=== PATIENT | male | born 1935 | race Caucasian/White ===

== ENCOUNTER 2023-02-06 18:24 | Emergency (ER) | payer OTHER ==
[2023-02-06 18:32] VITALS: TEMP 98.2
--- NOTE | 2023-02-06 18:49 | ED ---
General Adult HPI - General Chief complaint: Neuro Symptoms/Deficit Stated complaint: poss stroke Time Seen by Provider: 02/06/23 18:40 Source: patient, family (Family also state speech is normal.), RN notes reviewed (Patient denies speech problems) Mode of arrival: wheelchair Limitations: no limitations - History of Present Illness Initial comments: Patient is a pleasant 87-year-old male presenting to the emergency department with concern for left-sided facial weakness. Patient noticed symptoms when he woke yesterday morning. Symptoms have slowly progressed since that time. Patient has had some drooling out of the left side and difficulty closing his left eye. No history of similar symptoms previously. No confusion or speech problems. No visual problems. No extremity weakness. No difficulty with ambulation. No headache. - Related Data Previous Rx's Medication Instructions Recorded predniSONE [Deltasone] 3 tab PO DAILY #18 tab 02/06/23 valACYclovir HCL [Valtrex] 1 tab PO TID #20 tablet 02/06/23 Allergies Allergy/AdvReac Type Severity Reaction Status Date / Time diazepam [From Valium] Allergy Anaphylaxis Verified 02/06/23 18:32 Review of Systems ROS Statement: Those systems with pertinent positive or pertinent negative responses have been documented in the HPI. ROS Other: All systems not noted in ROS Statement are negative. Constitutional: Denies: fever Eyes: Denies: eye pain ENT: Denies: ear pain Respiratory: Denies: cough Cardiovascular: Denies: chest pain Endocrine: Denies: fatigue Gastrointestinal: Denies: abdominal pain Genitourinary: Denies: urgency Musculoskeletal: Denies: back pain Skin: Denies: rash Neurological: Reports: as per HPI. Denies: headache Past Medical History Past Medical History: COPD, Dementia, Hyperlipidemia, Hypertension Additional Past Medical History / Comment(s): hiatal hernia History of Any Multi-Drug Resistant Organisms: None Reported Past Surgical History: Joint Replacement Additional Past Surgical History / Comment(s): nic knees, Past Psychological History: No Psychological Hx Reported Smoking Status: Former smoker Past Alcohol Use History: None Reported Past Drug Use History: None Reported General Exam Limitations: no limitations General appearance: alert, in no apparent distress Head exam: Present: atraumatic Eye exam: Present: PERRL, EOMI ENT exam: Present: normal oropharynx Neck exam: Present: normal inspection Respiratory exam: Present: normal lung sounds bilaterally Cardiovascular Exam: Present: regular rate, normal rhythm GI/Abdominal exam: Present: soft. Absent: tenderness Extremities exam: Present: normal inspection Neurological exam: Present: alert, oriented X3, CN II-XII intact (Except for left facial droop and forehead weakness) Expanded Neurological exam: Present: protecting the airway Speech: Present: fluid speech Cranial nerves: EOM's Intact: Normal, Facial Palsy without Forehead Movement: Abnormal Left ( L Facial and forehead weakness) Motor strength exam: RUE: 5, LUE: 5, RLE: 5, LLE: 5 Eye Response: (4) open spontaneously Motor Response: (6) obeys commands Verbal Response: (5) oriented Psychiatric exam: Present: normal affect, normal mood Skin exam: Present: normal color Course Vital Signs 02/06/23 18:27 Temperature 98.2 F Pulse Rate 72 Respiratory 20 Rate Blood Pressure 175/95 O2 Sat by Pulse 89 L Oximetry EKG Findings - EKG Results: EKG: interpreted by DIAMOND (Septal Q waves), sinus rhythm, normal axis, normal ST /T Medical Decision Making - Medical Decision Making Was pt. sent in by a medical professional or institution (ASHLEY Vieyra, PREVENTATIVE MAINTENANCE TECHNICIAN, urgent care, hospital, or alf...) When possible be specific @ -No Did you speak to anyone other than the patient for history (EMS, parent, family, police, friend...)? What history was obtained from this source @ - is present and helps provide history including onset and confirms no speech problems Did you review nursing and triage notes (agree or disagree)? Why? @ -I reviewed nursing and triage notes, patient and family both deny speech problems Were old charts reviewed (outside hosp., previous admission, EMS record, old EKG, old radiological studies, urgent care reports/EKG's, alf records)? Report findings @ -No old charts were reviewed Differential Diagnosis (chest pain, altered mental status, abdominal pain women, abdominal pain men, vaginal bleeding, weakness, fever, dyspnea, syncope, headache, dizziness, GI bleed, back pain, seizure, CVA, palpatations, mental health)? @ -Differential Weakness: Hypoglycemia, shock, sepsis, hyponatremia, anemia, infection, IL, ETOH, adverse medicine reaction, overdose, stroke, this is not meant to be an all-inclusive list. EKG interpreted by (3pts min.). @ -As above X-rays interpreted by me (1pt min.). @ -None done CT interpreted by me (1pt min.). @ -Report reviewed U/S interpreted by me (1pt. min.). @ -None done What testing was considered but not performed or refused? (CT, X-rays, U/S, labs)? Why? @ -None What meds were considered but not given or refused? Why? @ -None Did you discuss the management of the patient with other professionals (professionals i.e. DrWilla, PA, PREVENTATIVE MAINTENANCE TECHNICIAN, lab, RT, psych nurse, social insurance adviser, export freight clerk, teacher, air crew officer, manager of case)? Give summary @ -No Was smoking cessation discussed for >3mins.? @ -No Was critical care preformed (if so, how long)? @ -No Were there social determinants of health that impacted care today? How? (Homelessness, low income, unemployed, alcoholism, drug addiction, transportation, low edu. Level, literacy, decrease access to med. care, [facility]ci, rehab)? @ -No Was there de-escalation of care discussed even if they declined (Discuss DNR or withdrawal of care, Hospice)? DNR status @ -No What co-morbidities impacted this encounter? (DM, HTN, Smoking, COPD, CAD, Cancer, CVA, ARF, Chemo, Hep., AIDS, mental health diagnosis, sleep apnea, morbid obesity)? @ -None Was patient admitted / discharged? Hospital course, mention meds given and route, prescriptions, significant lab abnormalities, going to OR and other pertinent info. @ -Patient reevaluated. Patient family updated on results and plan as well as treatment Undiagnosed new problem with uncertain prognosis? @ -No Drug Therapy requiring intensive monitoring for toxicity (Heparin, Nitro, Insulin, Cardizem)? @ -No Were any procedures done? @ -No Diagnosis/symptom? @ -Juarez's palsy Acute, or Chronic, or Acute on Chronic? @ -Acute Uncomplicated (without systemic symptoms) or Complicated (systemic symptoms)? @ -default Side effects of treatment? @ -No Exacerbation, Progression, or Severe Exacerbation? @ -No Poses a threat to life or bodily function? How? (Chest pain, USA, IL, pneumonia, PE, COPD, DKA, ARF, appy, cholecystitis, CVA, Diverticulitis, Homicidal, Suicidal, threat to staff... and all critical care pts) @ -No Disposition Clinical Impression: Juarez's palsy Disposition: HOME SELF-CARE Condition: Stable Instructions (If sedation given, give patient instructions): Juarez Palsy (ED) Additional Instructions: Start Prescriptions tomorrow. Please do follow-up with primary care physician beginning of the week. Return for other areas of weakness, confusion, worsening or change in symptoms or other concerns. 4 times daily and before bed use Lacri-Lube to left eye. Tape the left eye shut prior to going to sleep. Prescriptions: predniSONE [Deltasone] 3 tab PO DAILY #18 tab valACYclovir HCL [Valtrex] 1 tab PO TID #20 tablet Is patient prescribed a controlled substance at d/c from ED?: No Referrals: [facility],Clinic [Primary Care Provider] - 1-2 days Time of Disposition: 19:25
--- NOTE | 2023-02-06 19:13 | CT ---
EXAMINATION TYPE: CT brain wo con CT DLP: 1102.4 mGycm, Automated exposure control for dose reduction was used. DATE OF EXAM: 02/06/2023 7:06 PM COMPARISON: None. CLINICAL INDICATION:Male, 87 years old with history of facial weakness L, left side facial weakness, droop TECHNIQUE: Brain: Axial CT images of the brain were obtained with coronal and sagittal reformats created and rev iewed. Contrast used: None. Oral contrast used: None. FINDINGS: Brain: Extra-axial spaces: No abnormal extra-axial fluid collections. Ventricular system: Dilatation in proportion to cerebral atrophy. Cerebral parenchyma: Cerebral atrophy. No acute intraparenchymal hemorrhage or mass effect. The horne -white junction is well differentiated. Cerebellum: Unremarkable. Mass effect: No evidence of midline shift. Intracranial vasculature: Atherosclerotic calcifications of the intracranial vessels. Soft tissues: Normal. Calvarium/osseous structures: No depressed skull fracture. Paranasal sinuses and mastoid air cells: Mild scattered paranasal sinus disease. Visualized orbits: Orbital contents are intact. IMPRESSION: 1. No acute intracranial process. 2. Nonspecific white matter changes, likely secondary to chronic small vessel ischemic disease.
[2023-02-06] MEDS ORDERED: valACYclovir HCL 1,000 MG TABLET PO STA (19:20)
[2023-02-06] MEDS ORDERED: predniSONE 20 MG TAB PO STA (19:21)
[2023-02-06 19:40] VITALS: BP 162/95; PULSE 71; RESP 18
== END 2023-02-06 20:04 | disposition home or self-care (01) ==
LOC: EC 18:24
DX: G51.0 Bell's palsy (principal); J44.9 Chronic obstructive pulmonary disease, unspecified; I10 Essential (primary) hypertension; Z87.891 Personal history of nicotine dependence; Z88.8 Allergy status to other drugs, medicaments and biological substances
CPT/HCPCS: 70450; 99284; J7512

== ENCOUNTER 2023-12-30 12:07 | Inpatient (IN) | payer OTHER, MEDICARE ==
--- NOTE | 2023-12-30 12:46 | ED ---
Nausea/Vomiting/Diarrhea HPI - General Chief complaint: Nausea/Vomiting/Diarrhea Stated complaint: Vomiting Time Seen by Provider: 12/30/23 12:19 Source: patient, RN notes reviewed Mode of arrival: wheelchair Limitations: no limitations - History of Present Illness Initial comments: 88-year-old male presents emergency department chief complaint of nausea vomiting patient states he has had symptoms over the last 3 days that are intermittent but increasing in intensity states he has emesis that is pretty much bile at this time he states he is having increased abdominal pain he did have some chest discomfort and increasing shortness of breath from his baseline he is oxygen dependent COPD. Patient denies any fevers or chills no sick contacts denies any back pain no flank pain on the usual. - Related Data Home Medications Medication Instructions Recorded Confirmed Albuterol Sulfate [Albuterol 1 puff INHALATION RT-QID PRN 12/30/23 12/30/23 Sulfate Hfa] Aspirin EC [Ecotrin Low Dose] 81 mg PO HS 12/30/23 12/30/23 Fluticasone Propion/Salmeterol 1 puff INHALATION RT-BID 12/30/23 12/30/23 [Fluticasone-Salmeterol 250-50] Levothyroxine Sodium [Synthroid] 25 mcg PO DAILY 12/30/23 12/30/23 Meloxicam [Mobic] 15 mg PO DAILY 12/30/23 12/30/23 Niacin [Slo-Niacin] 500 mg PO BID 12/30/23 12/30/23 Simvastatin [Zocor] 40 mg PO HS 12/30/23 12/30/23 Tiotropium 2.5 Mcg/Puff [Spiriva 2 puff INHALATION RT-DAILY 12/30/23 12/30/23 Respimat 2.5 Mcg] atenoloL [Tenormin] 25 mg PO BID 12/30/23 12/30/23 Allergies Allergy/AdvReac Type Severity Reaction Status Date / Time diazepam [From Valium] Allergy Anaphylaxis Verified 12/30/23 13:24 Review of Systems ROS Statement: Those systems with pertinent positive or pertinent negative responses have been documented in the HPI. ROS Other: All systems not noted in ROS Statement are negative. Past Medical History Past Medical History: COPD, Dementia, Hyperlipidemia, Hypertension Additional Past Medical History / Comment(s): hiatal hernia History of Any Multi-Drug Resistant Organisms: None Reported Past Surgical History: Joint Replacement Additional Past Surgical History / Comment(s): nic knees, Past Psychological History: No Psychological Hx Reported Smoking Status: Former smoker Past Alcohol Use History: None Reported Past Drug Use History: None Reported General Exam Limitations: no limitations General appearance: alert, in no apparent distress Head exam: Present: atraumatic, normocephalic, normal inspection Eye exam: Present: normal appearance, PERRL, EOMI. Absent: scleral icterus, conjunctival injection, periorbital swelling ENT exam: Present: normal exam, normal oropharynx, mucous membranes moist Neck exam: Present: normal inspection, full ROM. Absent: tenderness, meningismus, lymphadenopathy Respiratory exam: Present: normal lung sounds bilaterally. Absent: respiratory distress, wheezes, rales, rhonchi, stridor Cardiovascular Exam: Present: regular rate, normal rhythm, normal heart sounds. Absent: systolic murmur, diastolic murmur, rubs, gallop, clicks GI/Abdominal exam: Present: soft, tenderness, normal bowel sounds. Absent: distended, guarding, rebound, rigid Back exam: Absent: CVA tenderness (R), CVA tenderness (L) Neurological exam: Present: alert, oriented X3, CN II-XII intact Skin exam: Present: warm, dry, intact, normal color. Absent: rash Course Vital Signs 12/30/23 12:09 Temperature 97.8 F Pulse Rate 89 Respiratory 16 Rate Blood Pressure 147/92 O2 Sat by Pulse 92 L Oximetry Medical Decision Making - Medical Decision Making Was pt. sent in by a medical professional or institution (, PA, PRECISION MACHINE OPERATOR, urgent care, hospital, or [facility]...) When possible be specific @ -[No] Did you speak to anyone other than the patient for history (EMS, parent, family, police, friend...)? What history was obtained from this source @ -[No] Did you review nursing and triage notes (agree or disagree)? Why? @ -[I reviewed and agree with nursing and triage notes] Were old charts reviewed (outside hosp., previous admission, EMS record, old EKG, old radiological studies, urgent care reports/EKG's, [facility] records)? Report findings @ -[No old charts were reviewed] Differential Diagnosis (chest pain, altered mental status, abdominal pain women, abdominal pain men, vaginal bleeding, weakness, fever, dyspnea, syncope, headache, dizziness, GI bleed, back pain, seizure, CVA, palpatations, mental health, musculoskeletal)? @ -Differential Abdominal Pain Men: Appendicitis, cholecystitis, diverticulosis, ischemic bowel, pancreatitis, hepatitis, UTI, gastroenteritis, AAA, incarcerated hernia, bowel obstruction, constipation, inflammatory bowel, hepatitis, peptic ulcer disease, splenic infarction, perforated viscus, testicular torsion, this is not meant to be an all-inclusive list EKG interpreted by me (3pts min.). @ -[As above] X-rays interpreted by me (1pt min.). @ -[None done] CT interpreted by me (1pt min.). @ -CT abdomen pelvis showing severely distended stomach, gastric outlet obstruction U/S interpreted by me (1pt. min.). @ -[None done] What testing was considered but not performed or refused? (CT, X-rays, U/S, lab s)? Why? @ -[None] What meds were considered but not given or refused? Why? @ -[None] Did you discuss the management of the patient with other professionals (professionals i.e. , PA, PRECISION MACHINE OPERATOR, lab, RT, psych nurse, high school social science teacher, acid tester, teacher, security officer, pillowcase folder)? Give summary @ -Discussed the case with Dr. Coulter, Dr. Salinas for admission Was smoking cessation discussed for >3mins.? @ -[No] Was critical care preformed (if so, how long)? @ -35 Were there social determinants of health that impacted care today? How? (Homelessness, low income, unemployed, alcoholism, drug addiction, transportation, low edu. Level, literacy, decrease access to med. care, prison, rehab)? @ -[No] Was there de-escalation of care discussed even if they declined (Discuss DNR or withdrawal of care, Hospice)? DNR status @ -[No] What co-morbidities impacted this encounter? (DM, HTN, Smoking, COPD, CAD, Ca ncer, CVA, ARF, Chemo, Hep., AIDS, mental health diagnosis, sleep apnea, morbid obesity)? @ -[None] Was patient admitted / discharged? Hospital course, mention meds given and route, prescriptions, significant lab abnormalities, going to OR and other pertinent info. @ -Admitted patient found to have gastric outlet obstruction patient had vomiting for last few days. He is having increasing abdominal pain distention. Patient will have NG tube placed case discussed with on-call surgeon, medicine patient does have elevated troponin without significant EKG changes patient will have repeat troponin, cardiology evaluation will be placed IV fluids, antiemetics, antibiotics. Patient lab be placed on heparin due to possible pending surgery patient will have repeat troponin Undiagnosed new problem with uncertain prognosis? @ -[No] Drug Therapy requiring intensive monitoring for toxicity (Heparin, Nitro, Insulin, Cardizem)? @ -[No] Were any procedures done? @ -[No] Diagnosis/symptom? @ -Gastric outlet obstruction, NSTEMI Acute, or Chronic, or Acute on Chronic? @ -Acute Uncomplicated (without systemic symptoms) or Complicated (systemic symptoms)? @ -complicated Side effects of treatment? @ -[No] Exacerbation, Progression, or Severe Exacerbation? @ -[No] Poses a threat to life or bodily function? How? (Chest pain, USA, OR, pneumonia, PE, COPD, DKA, ARF, appy, cholecystitis, CVA, Diverticulitis, Homicidal, Suicidal, threat to staff... and all critical care pts) @ -Yes surgical risk, ACS - Lab Data Result diagrams: 12/30/23 12:58 12/30/23 12:58 Lab Results 12/30/23 12/30/23 12/30/23 Range/Units 12:58 12:58 12:58 WBC 13.6 H (3.8-10.6) k/uL RBC 5.74 (4.30-5.90) m/uL Hgb 16.7 (13.0-17.5) gm/dL Hct 51.7 (39.0-53.0) % MCV 90.2 (80.0-100.0) fL MCH 29.1 (25.0-35.0) pg MCHC 32.3 (31.0-37.0) g/dL RDW 14.6 (11.5-15.5) % Plt Count 215 (150-450) k/uL MPV 7.7 Neutrophils % 83 % Lymphocytes % 5 % Monocytes % 9 % Eosinophils % 1 % Basophils % 0 % Neutrophils # 11.3 H (1.3-7.7) k/uL Lymphocytes # 0.7 L (1.0-4.8) k/uL Monocytes # 1.2 H (0-1.0) k/uL Eosinophils # 0.1 (0-0.7) k/uL Basophils # 0.0 (0-0.2) k/uL Sodium 138 (137-145) mmol/L Potassium 3.9 (3.5-5.1) mmol/L Chloride 87 L (98-107) mmol/L Carbon Dioxide 40 H (22-30) mmol/L Anion Gap 11 mmol/L BUN 61 H (9-20) mg/dL Creatinine 1.27 H (0.66-1.25) mg/dL Est GFR (CKD-EPI)AfAm 58 (>60 ml/min/1.73 sqM) Est GFR (CKD-EPI)NonAf 50 (>60 ml/min/1.73 sqM) Glucose 150 H (74-99) mg/dL Calcium 9.9 (8.4-10.2) mg/dL Magnesium 2.1 (1.6-2.3) mg/dL Total Bilirubin 2.3 H (0.2-1.3) mg/dL AST 43 (17-59) U/L ALT 21 (4-49) U/L Alkaline Phosphatase 93 (38-126) U/L Troponin I 0.427 H* (0.000-0.034) ng/mL Total Protein 7.9 (6.3-8.2) g/dL Albumin 4.6 (3.5-5.0) g/dL Lipase 46 (23-300) U/L Influenza Type A (PCR) (Not Detectd) Influenza Type B (PCR) (Not Detectd) RSV (PCR) (Not Detectd) SARS-CoV-2 (PCR) (Not Detectd) 12/30/23 Range/Units 13:05 WBC (3.8-10.6) k/uL RBC (4.30-5.90) m/uL Hgb (13.0-17.5) gm/dL Hct (39.0-53.0) % MCV (80.0-100.0) fL MCH (25.0-35.0) pg MCHC (31.0-37.0) g/dL RDW (11.5-15.5) % Plt Count (150-450) k/uL MPV Neutrophils % % Lymphocytes % % Monocytes % % Eosinophils % % Basophils % % Neutrophils # (1.3-7.7) k/uL Lymphocytes # (1.0-4.8) k/uL Monocytes # (0-1.0) k/uL Eosinophils # (0-0.7) k/uL Basophils # (0-0.2) k/uL Sodium (137-145) mmol/L Potassium (3.5-5.1) mmol/L Chloride (98-107) mmol/L Carbon Dioxide (22-30) mmol/L Anion Gap mmol/L BUN (9-20) mg/dL Creatinine (0.66-1.25) mg/dL Est GFR (CKD-EPI)AfAm (>60 ml/min/1.73 sqM) Est GFR (CKD-EPI)NonAf (>60 ml/min/1.73 sqM) Glucose (74-99) mg/dL Calcium (8.4-10.2) mg/dL Magnesium (1.6-2.3) mg/dL Total Bilirubin (0.2-1.3) mg/dL AST (17-59) U/L ALT (4-49) U/L Alkaline Phosphatase (38-126) U/L Troponin I (0.000-0.034) ng/mL Total Protein (6.3-8.2) g/dL Albumin (3.5-5.0) g/dL Lipase (23-300) U/L Influenza Type A (PCR) Not Detected (Not Detectd) Influenza Type B (PCR) Not Detected (Not Detectd) RSV (PCR) Not Detected (Not Detectd) SARS-CoV-2 (PCR) Not Detected (Not Detectd) - EKG Data -: EKG Interpreted by Ma EKG Comments: EKG performed at 12: 43 sinus rhythm rate of 81 WI 167 QRS 82 QT/QTc 404/42 inverted T waves in lead II, 3 Critical Care Time Critical Care Time: Yes Total Critical Care Time: 35 Disposition Clinical Impression: Dehydration, Gastric outlet obstruction, NSTEMI (non-ST elevated myocardial infarction) Disposition: ADMITTED IP TO THIS HOSP Condition: Serious Referrals: [facility],Clinic [Primary Care Provider] - 1-2 days Time of Disposition: 14:41
[2023-12-30] MEDS: ONDANSETRON 4 MG/2 ML VIAL IVP STA (12:55)
[2023-12-30] MEDS: SODIUM CHLORIDE 0.9% 500 ML 500 ML IV STA (12:55)
[2023-12-30 13:09] LABS: Basophils % (A) 0 %; Eosinophils # (A) 0.1 k/uL (0-0.7); Eosinophils % (A) 1 %; HCT 51.7 % (39.0-53.0); HGB 16.7 gm/dL (13.0-17.5); Lymphocytes # (A) 0.7 k/uL (1.0-4.8); Lymphocytes % (A) 5 %; MCH 29.1 pg (25.0-35.0); MCHC 32.3 g/dL (31.0-37.0); MCV 90.2 fL (80.0-100.0); Mean Platelet Volume 7.7; Monocytes # (A) 1.2 k/uL (0-1.0); Monocytes % (A) 9 %; Neutrophils # (A) 11.3 k/uL (1.3-7.7); Neutrophils % (A) 83 %; Platelet Count 215 k/uL (150-450); RBC 5.74 m/uL (4.30-5.90); RDW 14.6 % (11.5-15.5); WBC 13.6 k/uL (3.8-10.6)
[2023-12-30 13:20] LABS: ALT 21 U/L (4-49); AST 43 U/L (17-59); African American GFR (CKD) 58 (>60 ml/min/1.73 sqM); Albumin 4.6 g/dL (3.5-5.0); Alkaline Phosphatase 93 U/L (38-126); Anion Gap 11 mmol/L; Blood Urea Nitrogen 61 mg/dL (9-20); Calcium 9.9 mg/dL (8.4-10.2); Chloride 87 mmol/L (98-107); Glucose 150 mg/dL (74-99); Lipase 46 U/L (23-300); Magnesium 2.1 mg/dL (1.6-2.3); Non-African American GFR(CKD) 50 (>60 ml/min/1.73 sqM); Potassium 3.9 mmol/L (3.5-5.1); Sodium 138 mmol/L (137-145); Total Bilirubin 2.3 mg/dL (0.2-1.3); Total Protein 7.9 g/dL (6.3-8.2)
[2023-12-30 13:31] LABS: Carbon Dioxide 40 mmol/L (22-30)
--- NOTE | 2023-12-30 14:07 | CT ---
EXAMINATION TYPE: CT abdomen pelvis wo con CT DLP: 479.2 mGycm, Automated exposure control for dose reduction was used. DATE OF EXAM: 12/30/2023 1:42 PM COMPARISON: None CLINICAL INDICATION:Male, 88 years old with history of pain; Abdominal pain with vomiting TECHNIQUE: Axial CT abdomen pelvis wo con;Sagittal and coronal reformats were created on a separate workstation. Contrast used: mL of , (none if empty) Oral contrast used: without Oral Contrast (none if empty) FINDINGS: LOWER CHEST: Unremarkable ABDOMEN LIVER: Unremarkable GALLBLADDER AND BILE DUCTS: Unremarkable. PANCREAS: Unremarkable. SPLEEN: Unremarkable. ADRENAL GLANDS: Unremarkable. KIDNEYS AND URETERS: No evidence of hydronephrosis or renal calculus. The ureters are unremarkable. PELVIS BLADDER: Unremarkable REPRODUCTIVE: Unremarkable. ABDOMEN & PELVIS STOMACH AND BOWEL: Large hiatal hernia with distention of the gastric lumen with the antrum and the p ylorus near the neck of the hernia with gastric outlet obstruction best appreciated on series 202 pa[address] 50. Scattered colonic diverticula are present. Moderate stool burden throughout the colon. PERITONEUM/RETROPERITONEUM: No evidence of pneumoperitoneum or free fluid. VASCULATURE: No evidence of aortic aneurysm. MUSCULOSKELETAL: No acute osseous abnormalities severe degeneration changes of the hips with end-stag e on the left and severe on the right joint space narrowing and osteophyte formation. Subchondral scl erosis and subchondral cystic change in the left. Moderate to severe multilevel degeneration changes throughout the spine. LYMPH NODES: No gross evidence for lymphadenopathy. SOFT TISSUE/ABDOMINAL WALL: Unremarkable IMPRESSION: 1. Markedly distended gastric lumen with herniation through the hiatus into the thorax with the preston tahir antrum and pylorus situated near the neck with gastric outlet obstruction. Nasogastric tube recom mended. Surgical consultation recommended 2. Gastroesophageal reflux within the esophagus likely secondary to #1. 3. Colonic diverticulosis. 4. 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 5. Severe degeneration changes throughout the spine.
[2023-12-30] MEDS ORDERED: ONDANSETRON 4 MG/2 ML VIAL IVP PRN (14:41)
[2023-12-30] MEDS ORDERED: NALOXONE 0.4 MG/ML 1 ML VIAL IV PRN (14:41)
[2023-12-30 14:43] LABS: Appearance,Urine Clear (Clear); Bilirubin,Urine 1+ (Negative); Blood,Urine Negative (Negative); Color,Urine Yellow; Glucose,Urine (UA) Negative (Negative); Hyaline Casts,Urine 8 /lpf (0-2); Ketones,Urine 1+ (Negative); Leukocyte Esterase,Urine Negative (Negative); Mucus,Urine Rare /hpf; Nitrite,Urine Negative (Negative); PH, Urine 5.5 (5.0-8.0); Protein,Urine 1+ (Negative); RBC,Urine 1 /hpf (0-5); Specific Gravity,Urine 1.025 (1.001-1.035); WBC,Urine <1 /hpf (0-5)
[2023-12-30] MEDS: SODIUM CHLORIDE 0.9% 1,000 ML IV ONE (14:45)
[2023-12-30] MEDS ORDERED: ASPIRIN 300 MG SUPP RECTAL PRN (15:22)
--- NOTE | 2023-12-30 15:37 | P.GSCN ---
History of Present Illness Consult date: 12/30/23 History of present illness: CHIEF COMPLAINT: Nausea and vomiting HISTORY OF PRESENT ILLNESS: This is a 88-year-old male who presented to the hospital with complaints of epigastric pain with nausea and vomiting x 3 days. Emesis had been bilious in color. Denies any hematemesis. Patient has reported increase in shortness of breath requiring to increase his home O2. Patient denies any chest pain. Patient had a CT scan abdomen and pelvis that had reported concerns for gastric outlet obstruction. Patient has NG tube placed. Awaiting x-ray to confirm placement. Patient does have past surgical history bowel obstruction with possible lysis of adhesions years ago as well as an appendectomy as a child. Patient reports having a history of a hiatal hernia that was diagnosed about 5 to 10 years ago. Patient was told at that time he was high risk for surgery. Patient denies any prior myocardial infarction's or cardiac history. He does report prior history of smoking. 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 PAST MEDICAL HISTORY: COPD, Dementia, Hyperlipidemia, Hypertension, hiatal hernia PAST SURGICAL HISTORY: Appendectomy, bowel obstruction with lysis of adhesions MEDICATIONS: See below ALLERGIES: See below SOCIAL HISTORY: No illicit drug use. REVIEW OF SYSTEMS: CONSTITUTIONAL: Denies fever or chills. HEENT: Denies blurred vision, vision changes, or eye pain. Denies hemoptysis CARDIOVASCULAR: Denies chest pain or pressure. RESPIRATORY: No shortness of breath. GASTROINTESTINAL: See HPI for pertinent findings HEMATOLOGIC: Denies bleeding disorders. GENITOURINARY: Denies any blood in urine or increased urinary frequency. SKIN: Denies pruitis. Denies rash. PHYSICAL EXAM: VITAL SIGNS: Reviewed GENERAL: Well-developed in no acute distress. HEENT: No sclera icterus. Extraocular movements grossly intact. Moist buccal mucosa. Head is atraumatic, normocephalic. No nasal drainage. ABDOMEN: Soft. Mildly distended. Tenderness with palpation epigastric area NEUROLOGIC: Alert and oriented. Cranial nerves II through XII grossly intact. LABORATORY DATA: WBC 13.6 Hgb 16.7 platelets 215 Sodium 138 potassium 3.9 creatinine 1.27 Total bili 2.3 AST 43 ALT 21 alk phos 93 Troponin elevated Lipase 46 Influenza, RSV COVID-19 not detected IMAGING: CT scan abdomen pelvis reported markedly distended gastric lumen with herniation through the hiatus into the thorax with the gastric antrum and pylorus situated near the neck with gastric outlet obstruction. GERD within the esophagus. Colonic diverticulosis. ASSESSMENT: 1. Gastric outlet obstruction 2. Abdominal pain with nausea and vomiting 3. Elevated troponin PLAN: -Continue NG tube for decompression -Keep patient n.p.o. -Continue IV fluids -Continue antiemetics -Continue to monitor -Further recommendations forthcoming Physician Crop Specialist note has been reviewed by physician. Signing provider agrees with the documented findings, assessment, and plan of care. Past Medical History Past Medical History: COPD, Dementia, Hyperlipidemia, Hypertension Additional Past Medical History / Comment(s): hiatal hernia History of Any Multi-Drug Resistant Organisms: None Reported Past Surgical History: Joint Replacement Additional Past Surgical History / Comment(s): nic knees, Past Psychological History: No Psychological Hx Reported Smoking Status: Former smoker Past Alcohol Use History: None Reported Past Drug Use History: None Reported Medications and Allergies Home Medications Medication Instructions Recorded Confirmed Type Albuterol Sulfate [Albuterol 1 puff INHALATION RT-QID PRN 12/30/23 12/30/23 History Sulfate Hfa] Aspirin EC [Ecotrin Low Dose] 81 mg PO HS 12/30/23 12/30/23 History Fluticasone Propion/Salmeterol 1 puff INHALATION RT-BID 12/30/23 12/30/23 History [Fluticasone-Salmeterol 250-50] Levothyroxine Sodium [Synthroid] 25 mcg PO DAILY 12/30/23 12/30/23 History Meloxicam [Mobic] 15 mg PO DAILY 12/30/23 12/30/23 History Niacin [Slo-Niacin] 500 mg PO BID 12/30/23 12/30/23 History Simvastatin [Zocor] 40 mg PO HS 12/30/23 12/30/23 History Tiotropium 2.5 Mcg/Puff [Spiriva 2 puff INHALATION RT-DAILY 12/30/23 12/30/23 History Respimat 2.5 Mcg] atenoloL [Tenormin] 25 mg PO BID 12/30/23 12/30/23 History Allergies Allergy/AdvReac Type Severity Reaction Status Date / Time diazepam [From Valium] Allergy Anaphylaxis Verified 12/30/23 13:24 Surgical - Exam Vital Signs Temp Pulse Resp BP Pulse Ox 97.8 F 89 16 147/92 92 L 12/30/23 12:09 12/30/23 12:09 12/30/23 12:09 12/30/23 12:09 12/30/23 12:09 Results - Labs 12/30/23 12:58 12/30/23 12:58 Abnormal Lab Results - Last 24 Hours (Table) 12/30/23 12/30/23 12/30/23 Range/Units 12:58 12:58 12:58 WBC 13.6 H (3.8-10.6) k/uL Neutrophils # 11.3 H (1.3-7.7) k/uL Lymphocytes # 0.7 L (1.0-4.8) k/uL Monocytes # 1.2 H (0-1.0) k/uL Chloride 87 L (98-107) mmol/L Carbon Dioxide 40 H (22-30) mmol/L BUN 61 H (9-20) mg/dL Creatinine 1.27 H (0.66-1.25) mg/dL Glucose 150 H (74-99) mg/dL Total Bilirubin 2.3 H (0.2-1.3) mg/dL Troponin I 0.427 H* (0.000-0.034) ng/mL Urine Protein (Negative) Urine Ketones (Negative) Urine Bilirubin (Negative) Hyaline Casts (0-2) /lpf Urine Mucus (None) /hpf 12/30/23 Range/Units 14:25 WBC (3.8-10.6) k/uL Neutrophils # (1.3-7.7) k/uL Lymphocytes # (1.0-4.8) k/uL Monocytes # (0-1.0) k/uL Chloride (98-107) mmol/L Carbon Dioxide (22-30) mmol/L BUN (9-20) mg/dL Creatinine (0.66-1.25) mg/dL Glucose (74-99) mg/dL Total Bilirubin (0.2-1.3) mg/dL Troponin I (0.000-0.034) ng/mL Urine Protein 1+ H (Negative) Urine Ketones 1+ H (Negative) Urine Bilirubin 1+ H (Negative) Hyaline Casts 8 H (0-2) /lpf Urine Mucus Rare H (None) /hpf Diabetes panel 12/30/23 Range/Units 12:58 Sodium 138 (137-145) mmol/L Potassium 3.9 (3.5-5.1) mmol/L Chloride 87 L (98-107) mmol/L Carbon Dioxide 40 H (22-30) mmol/L BUN 61 H (9-20) mg/dL Creatinine 1.27 H (0.66-1.25) mg/dL Glucose 150 H (74-99) mg/dL Calcium 9.9 (8.4-10.2) mg/dL AST 43 (17-59) U/L ALT 21 (4-49) U/L Alkaline Phosphatase 93 (38-126) U/L Total Protein 7.9 (6.3-8.2) g/dL Albumin 4.6 (3.5-5.0) g/dL Calcium panel 12/30/23 Range/Units 12:58 Calcium 9.9 (8.4-10.2) mg/dL Albumin 4.6 (3.5-5.0) g/dL Pituitary panel 12/30/23 Range/Units 12:58 Sodium 138 (137-145) mmol/L Potassium 3.9 (3.5-5.1) mmol/L Chloride 87 L (98-107) mmol/L Carbon Dioxide 40 H (22-30) mmol/L BUN 61 H (9-20) mg/dL Creatinine 1.27 H (0.66-1.25) mg/dL Glucose 150 H (74-99) mg/dL Calcium 9.9 (8.4-10.2) mg/dL Adrenal panel 12/30/23 Range/Units 12:58 Sodium 138 (137-145) mmol/L Potassium 3.9 (3.5-5.1) mmol/L Chloride 87 L (98-107) mmol/L Carbon Dioxide 40 H (22-30) mmol/L BUN 61 H (9-20) mg/dL Creatinine 1.27 H (0.66-1.25) mg/dL Glucose 150 H (74-99) mg/dL Calcium 9.9 (8.4-10.2) mg/dL Total Bilirubin 2.3 H (0.2-1.3) mg/dL AST 43 (17-59) U/L ALT 21 (4-49) U/L Alkaline Phosphatase 93 (38-126) U/L Total Protein 7.9 (6.3-8.2) g/dL Albumin 4.6 (3.5-5.0) g/dL
[2023-12-30] MEDS: SODIUM CHLORIDE 0.9% 1,000 ML IV SCH (15:42)
[2023-12-30] MEDS: HYDROmorphone 0.5 MG/0.5 ML SYRINGE IVP PRN (15:45)
--- NOTE | 2023-12-30 15:51 | XR ---
EXAMINATION TYPE: XR KUB portable DATE OF EXAM: 12/30/2023 3:36 PM CLINICAL INDICATION:Male, 88 years old with history of NG tube placement; [facility] COMPARISON: Same day CT. TECHNIQUE: One radiographic view of the abdomen was obtained. FINDINGS/IMPRESSION: 1. Nasogastric tube needs to be advanced at least 14 cm for optimal placement the distal tip and brady e-port project over the esophagus. 2. Persistent dilation of the gastric lumen similar to same day CT
--- NOTE | 2023-12-30 16:51 | P.HPIM ---
History of Present Illness H&P Date: 12/30/23 Chief Complaint: n/v 88-year-old man with a medical history of hypertension, hyperlipidemia, COPD, hypothyroidism presented for evaluation of nausea, vomiting. Patient says that 3 days ago he started to experience nausea, vomiting as well as burning chest pain/epigastric pain. He was unable to tolerate p.o. over the last few days because he has had large amounts of bilious emesis. He denies seeing any hematemesis. Patient has associated shakes, but denies fevers, chills, abdominal pain, diarrhea. Patient denies chest pain, diaphoresis, palpitations. Patient had been feeling presyncopal. Based on the symptoms, presented to the hospital for further evaluation. In the emergency room, patient was afebrile, 147/92, heart rate 89, 92% on 4 L of nasal cannula. CBC demonstrates leukocytosis to 13.6, otherwise unremarkable. Basic metabolic panel shows chloride of 87, CO2 of 40, BUN of 61, creatinine of 1.27. Liver function test demonstrate elevated bilirubin to 2.3, otherwise unremarkable. Troponins 0.427 then trended to 0.39. UA showed 1+ protein, 1+ ketones, 1+ bilirubin, 8 hyaline cast. Influenza A, B, RSV, COVID were negative. Abdomen/pelvis CT demonstrated findings of a markedly distended gastric lumen with herniation through the hiatus into the thorax as well as a gastric outlet obstruction. Initial EKG demonstrated normal sinus rhythm with evidence of fusion beats. Repeat EKGs confirm this finding. Patient underwent nasogastric tube insertion with postprocedure KUB demonstrating good placement. Patient was admitted to medicine with surgical consultation. All Systems reviewed and pertinent positives and negatives noted in HPI, all other symptoms are negative Gen: in no apparent distress, resting comfortably in bed Eyes: PERRL, no scleral injection or icterus HENT: normocephalic, atraumatic, good hearing acuity, moist mucous membranes Neck: no tracheal deviation, full range of motion Resp: good air exchange, breathing comfortably with no accessory muscle use, no tactile fremitus, clear to auscultation bilaterally CVS: good distal perfusion x 4, no pitting edema, regular rate and rhythm without murmurs GI: soft, tender to palpation in the epigastrium and right upper quadrant with mild distention : no suprapubic tenderness, no CVAT, hernandez catheter not present MSK: no clubbing, no cyanosis, no noted contractures of extremities Skin: no noted rashes, petechiae; temperature of skin is appropriate Neuro: moving all extremities without signs of weakness, CN II-XII intact Psych: cooperative, euthymic mood, insight and judgment intact Labs and imaging as above Assessment/plan: Gastric Outlet Obstruction Nausea and Vomiting -Patient was admitted as an inpatient with telemetry to cardiac selective -General surgery was consulted, case discussed with them, will manage conservatively initially with NG tube and n.p.o. status -Zofran as needed for nausea, use sparingly considering ventricular ectopy as below -Morphine as needed for pain control -IV fluids: NS 75cc/hr -Zosyn Elevated Troponin Ventricular Ectopy -Trend troponins -Monitor on telemetry -Cardiology was consulted -Echocardiogram ordered COPD with chronic respiratory failure, not in exacerbation Hypothyroidism HTN HLD -Home medications reviewed and reconciled Pt is Full Code Past Medical History Past Medical History: COPD, Dementia, Hyperlipidemia, Hypertension Additional Past Medical History / Comment(s): hiatal hernia History of Any Multi-Drug Resistant Organisms: None Reported Past Surgical History: Joint Replacement Additional Past Surgical History / Comment(s): nic knees, Past Psychological History: No Psychological Hx Reported Smoking Status: Former smoker Past Alcohol Use History: None Reported Past Drug Use History: None Reported Medications and Allergies Home Medications Medication Instructions Recorded Confirmed Type Albuterol Sulfate [Albuterol 1 puff INHALATION RT-QID PRN 12/30/23 12/30/23 History Sulfate Hfa] Aspirin EC [Ecotrin Low Dose] 81 mg PO HS 12/30/23 12/30/23 History Fluticasone Propion/Salmeterol 1 puff INHALATION RT-BID 12/30/23 12/30/23 History [Fluticasone-Salmeterol 250-50] Levothyroxine Sodium [Synthroid] 25 mcg PO DAILY 12/30/23 12/30/23 History Meloxicam [Mobic] 15 mg PO DAILY 12/30/23 12/30/23 History Niacin [Slo-Niacin] 500 mg PO BID 12/30/23 12/30/23 History Simvastatin [Zocor] 40 mg PO HS 12/30/23 12/30/23 History Tiotropium 2.5 Mcg/Puff [Spiriva 2 puff INHALATION RT-DAILY 12/30/23 12/30/23 History Respimat 2.5 Mcg] atenoloL [Tenormin] 25 mg PO BID 12/30/23 12/30/23 History Allergies Allergy/AdvReac Type Severity Reaction Status Date / Time diazepam [From Valium] Allergy Anaphylaxis Verified 12/30/23 13:24 Physical Exam Osteopathic Statement: *. No significant issues noted on an osteopathic structural exam other than those noted in the History and Physical/Consult. Vitals: Vital Signs Temp Pulse Resp BP Pulse Ox 12/30/23 15:21 76 16 152/93 99 12/30/23 12:09 97.8 F 89 16 147/92 92 L Intake and Output 12/30/23 12/30/23 12/30/23 06:59 14:59 22:59 Other: Weight 77.111 kg Results CBC & Chem 7: 12/30/23 12:58 12/30/23 12:58 Labs: Abnormal Lab Results - Last 24 Hours (Table) 12/30/23 12/30/23 12/30/23 Range/Units 12:58 12:58 12:58 WBC 13.6 H (3.8-10.6) k/uL Neutrophils # 11.3 H (1.3-7.7) k/uL Lymphocytes # 0.7 L (1.0-4.8) k/uL Monocytes # 1.2 H (0-1.0) k/uL Chloride 87 L (98-107) mmol/L Carbon Dioxide 40 H (22-30) mmol/L BUN 61 H (9-20) mg/dL Creatinine 1.27 H (0.66-1.25) mg/dL Glucose 150 H (74-99) mg/dL Total Bilirubin 2.3 H (0.2-1.3) mg/dL Troponin I 0.427 H* (0.000-0.034) ng/mL Urine Protein (Negative) Urine Ketones (Negative) Urine Bilirubin (Negative) Hyaline Casts (0-2) /lpf Urine Mucus (None) /hpf 12/30/23 12/30/23 Range/Units 14:25 15:40 WBC (3.8-10.6) k/uL Neutrophils # (1.3-7.7) k/uL Lymphocytes # (1.0-4.8) k/uL Monocytes # (0-1.0) k/uL Chloride (98-107) mmol/L Carbon Dioxide (22-30) mmol/L BUN (9-20) mg/dL Creatinine (0.66-1.25) mg/dL Glucose (74-99) mg/dL Total Bilirubin (0.2-1.3) mg/dL Troponin I 0.390 H* (0.000-0.034) ng/mL Urine Protein 1+ H (Negative) Urine Ketones 1+ H (Negative) Urine Bilirubin 1+ H (Negative) Hyaline Casts 8 H (0-2) /lpf Urine Mucus Rare H (None) /hpf
[2023-12-30] MEDS: PIPERACILLIN-TAZOBACTAM 3.375 GM in SODIUM CHLORIDE 0.9% 100 ML IVPB SCH (18:00)
--- NOTE | 2023-12-30 19:29 | XR ---
EXAMINATION TYPE: XR chest 1V portable DATE OF EXAM: 12/30/2023 COMPARISON: NONE HISTORY: NG tube placement TECHNIQUE: Single frontal view of the chest is obtained. FINDINGS: There is an NG tube in the stomach. There are moderate to marked emphysematous changes. There is mild elevation left hemidiaphragm. There is cardiomegaly but no overt CHF. There is no large pleural effusion or pneumothorax. IMPRESSION: 1. NG tube within the stomach. 2. Marked COPD. 3. Cardiomegaly without overt CHF
[2023-12-30 19:48] LABS: Glucose,Whole Blood 131 mg/dL (70-110)
[2023-12-30] MEDS: SYMBICORT 80-4.5 MCG INHALER INHALATION SCH (20:01)
[2023-12-30] MEDS: ASPIRIN 81 MG PO SCH (20:16)
[2023-12-30] MEDS: atenoloL 25 MG TAB PO SCH (20:16)
[2023-12-30] MEDS: ATORVASTATIN 80 MG TAB PO SCH (20:16)
[2023-12-31 05:59] LABS: Glucose,Whole Blood 95 mg/dL (70-110)
[2023-12-31 09:38] LABS: Basophils % (A) 0 %; Eosinophils # (A) 0.2 k/uL (0-0.7); Eosinophils % (A) 2 %; HCT 46.2 % (39.0-53.0); HGB 14.5 gm/dL (13.0-17.5); Hypochromasia Slight; Lymphocytes # (A) 0.7 k/uL (1.0-4.8); Lymphocytes % (A) 7 %; MCH 29.2 pg (25.0-35.0); MCHC 31.4 g/dL (31.0-37.0); Mean Platelet Volume 7.9; Monocytes # (A) 1.1 k/uL (0-1.0); Monocytes % (A) 11 %; Neutrophils # (A) 8.2 k/uL (1.3-7.7); Neutrophils % (A) 79 %; Platelet Count 184 k/uL (150-450); RBC 4.96 m/uL (4.30-5.90); RDW 14.7 % (11.5-15.5); WBC 10.4 k/uL (3.8-10.6)
[2023-12-31] MEDS: LEVOTHYROXINE 25 MCG TAB PO SCH (09:48)
[2023-12-31] MEDS: IPRATROPIUM 0.5 MG/2.5 ML NEBU INHALATION SCH (09:53)
[2023-12-31 10:07] LABS: African American GFR (CKD) 51 (>60 ml/min/1.73 sqM); Anion Gap 7 mmol/L; Blood Urea Nitrogen 50 mg/dL (9-20); Calcium 8.9 mg/dL (8.4-10.2); Carbon Dioxide 37 mmol/L (22-30); Chloride 98 mmol/L (98-107); Glucose 88 mg/dL (74-99); Magnesium 2.1 mg/dL (1.6-2.3); Non-African American GFR(CKD) 44 (>60 ml/min/1.73 sqM); Potassium 3.1 mmol/L (3.5-5.1); Sodium 142 mmol/L (137-145)
[2023-12-31 12:03] LABS: Glucose,Whole Blood 89 mg/dL (70-110)
--- NOTE | 2023-12-31 12:40 | P.CRDCN ---
History of Present Illness History of present illness: HISTORY OF PRESENT ILLNESS: This is a 88-year-old male with a past medical history significant for hypertension, hyperlipidemia, diabetes, and hypothyroidism. 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 The patient states he follows at the [facility] for his health care. We have been asked to see the patient in consultation for elevated troponins. Patient examined at the bedside. Patient presented to the hospital with a chief complaint of nausea and vomiting. Patient states he was not passing gas or having bowel movements at home. He states this is the first time he has had any type of bowel issues like this and he initially thought he had the flu. The patient was found to have a gastric outlet obstruction and had an NG tube placed. He does report passing flatus this morning. Patient reports he has a history of COPD and does report shortness of breath with exertion. He garcia s use oxygen at home. He denies waking up at night short of breath. He denies any dizziness or lightheadedness. He denies any chest pain or pressure. Patient is a former cigarette smoker. He denies any known history of CAD. DIAGNOSTICS: - EKG reveals sinus mechanism with fusion beats. PVCs. T wave inversions inferiorly. - Chest xray NG tube within the stomach. Marked COPD. Cardiomegaly without overt CHF. - Laboratory data: WBC 10.4. Hemoglobin 14.5. Platelet count 184. Sodium 142. Potassium 3.1. BUN 50. Creatinine 1.42. Magnesium 2.1. Troponin 0.427. 0.390. 0.426. - Current home cardiac medications include aspirin 81 mg at night, simvastatin 40 mg at night, atenolol 25 mg twice a day - No previous echocardiogram, stress test, or cardiac catheterization available in EMR for review REVIEW OF SYSTEMS: At the time of my exam: CONSTITUTIONAL: Denies fever or chills. HEENT: Denies blurred vision, vision changes, or eye pain. Denies hemoptysis CARDIOVASCULAR: Denies chest pain. Denies orthopnea. Denies PND. Denies palpitations RESPIRATORY: Denies shortness of breath. GASTROINTESTINAL: Denies abdominal pain. Denies nausea or vomiting. HEMATOLOGIC: Denies bleeding disorders. GENITOURINARY: Denies any blood in urine. SKIN: Denies pruitis. Denies rash. PHYSICAL EXAM: VITAL SIGNS: Reviewed. GENERAL: Well-developed in no acute distress. HEENT: Head is normocephalic. Pupils are equal, round. Sclerae anicteric. Mucous membranes of the mouth are moist. Neck supple. No JVD or thyromegaly LUNGS: Respirations even and unlabored. Lungs essentially clear to auscultation bilaterally. HEART: Regular rate and rhythm. S1 and S2 heard. Systolic murmur noted ABDOMEN: Soft. Nondistended. Nontender. NG tube noted. EXTREMITIES: Normal range of motion. No clubbing or cyanosis. Peripheral pulses intact. No lower extremity edema NEUROLOGIC: Awake and alert. Oriented x 3. ASSESSMENT: Nausea and vomiting Gastric outlet obstruction Acute kidney injury Abnormal troponins, flat, likely secondary to VALENTE, however high probability for underlying CAD Hypertension Hyperlipidemia Diabetes Hypothyroidism Hypokalemia PLAN: Obtain 2D echo to assess cardiac structure and function Continue home cardiac medications General surgery following for gastric outlet obstruction. At this time, patient is not planned for any surgical intervention No plans for invasive cardiac workup at this time Further recommendations pending patient course Nurse practitioner note has been reviewed by physician. Signing provider agrees with the documented findings, assessment, and plan of care documented by PUMPER GAUGER as a scribe. Past Medical History Past Medical History: COPD, Hyperlipidemia, Hypertension Additional Past Medical History / Comment(s): hiatal hernia History of Any Multi-Drug Resistant Organisms: None Reported Past Surgical History: Appendectomy, Back Surgery, Joint Replacement Additional Past Surgical History / Comment(s): nic knees, bowel obstrution Past Anesthesia/Blood Transfusion Reactions: No Reported Reaction Past Psychological History: No Psychological Hx Reported Smoking Status: Former smoker Past Alcohol Use History: None Reported Past Drug Use History: None Reported Medications and Allergies Home Medications Medication Instructions Recorded Confirmed Type Albuterol Sulfate [Albuterol 1 puff INHALATION RT-QID PRN 12/30/23 12/30/23 Hist ory Sulfate Hfa] Aspirin EC [Ecotrin Low Dose] 81 mg PO HS 12/30/23 12/30/23 History Fluticasone Propion/Salmeterol 1 puff INHALATION RT-BID 12/30/23 12/30/23 History [Fluticasone-Salmeterol 250-50] Levothyroxine Sodium [Synthroid] 25 mcg PO DAILY 12/30/23 12/30/23 History Meloxicam [Mobic] 15 mg PO DAILY 12/30/23 12/30/23 History Niacin [Slo-Niacin] 500 mg PO BID 12/30/23 12/30/23 History Simvastatin [Zocor] 40 mg PO HS 12/30/23 12/30/23 History Tiotropium 2.5 Mcg/Puff [Spiriva 2 puff INHALATION RT-DAILY 12/30/23 12/30/23 History Respimat 2.5 Mcg] atenoloL [Tenormin] 25 mg PO BID 12/30/23 12/30/23 History Allergies Allergy/AdvReac Type Severity Reaction Status Date / Time diazepam [From Valium] Allergy Anaphylaxis Verified 12/30/23 13:24 Physical Exam Vitals: Vital Signs Temp Pulse Pulse Resp BP BP Pulse Ox 12/31/23 03:15 98.3 F 74 18 147/73 92 L 12/30/23 23:18 98.1 F 77 18 163/73 92 L 12/30/23 19:47 97.9 F 77 16 130/72 96 12/30/23 19:27 72 16 132/73 93 L 12/30/23 18:15 97.5 F L 79 16 184/82 97 12/30/23 17:44 79 16 12/30/23 15:21 76 16 152/93 99 12/30/23 12:09 97.8 F 89 16 147/92 92 L Intake and Output 12/30/23 12/31/23 12/31/23 22:59 06:59 14:59 Intake Total 0 Output Total 1900 700 Balance -1900 -700 Intake: Oral 0 Output: Gastric Drainage 1900 700 Other: Voiding Method Urinal Urinal Weight 77.111 kg Results 12/31/23 08:40 12/31/23 08:40 Cardiac Enzymes 12/30/23 12/30/23 12/30/23 Range/Units 12:58 12:58 15:40 AST 43 (17-59) U/L Troponin I 0.427 H* 0.390 H* (0.000-0.034) ng/mL 12/30/23 Range/Units 19:30 AST (17-59) U/L Troponin I 0.426 H* (0.000-0.034) ng/mL CBC 12/30/23 Range/Units 12:58 WBC 13.6 H (3.8-10.6) k/uL RBC 5.74 (4.30-5.90) m/uL Hgb 16.7 (13.0-17.5) gm/dL Hct 51.7 (39.0-53.0) % Plt Count 215 (150-450) k/uL Comprehensive Metabolic Panel 12/30/23 Range/Units 12:58 Sodium 138 (137-145) mmol/L Potassium 3.9 (3.5-5.1) mmol/L Chloride 87 L (98-107) mmol/L Carbon Dioxide 40 H (22-30) mmol/L BUN 61 H (9-20) mg/dL Creatinine 1.27 H (0.66-1.25) mg/dL Glucose 150 H (74-99) mg/dL Calcium 9.9 (8.4-10.2) mg/dL AST 43 (17-59) U/L ALT 21 (4-49) U/L Alkaline Phosphatase 93 (38-126) U/L Total Protein 7.9 (6.3-8.2) g/dL Albumin 4.6 (3.5-5.0) g/dL Current Medications Generic Name Dose Route Start Last Admin Trade Name Freq PRN Reason Stop Dose Admin Albuterol Sulfate 2.5 mg 12/30/23 14:44 Albuterol Nebulized 2.5 Mg/3 Ml INHALATION RT-QID PRN Shortness Of Breath Aspirin 81 mg 12/30/23 21:00 12/30/23 20:16 Aspirin 81 Mg PO Not Given HS YESY Aspirin 300 mg 12/30/23 15:22 Aspirin 300 Mg Supp RECTAL DAILY PRN if patient cannot take PO ASA Atenolol 25 mg 12/30/23 21:00 12/30/23 20:16 Atenolol 25 Mg Tab PO Not Given BID YESY Atorvastatin Calcium 80 mg 12/30/23 21:00 12/30/23 20:16 Atorvastatin 80 Mg Tab PO Not Given HS YESY Budesonide/Formoterol Fumarate 2 puff 12/30/23 20:00 12/30/23 20:01 Symbicort 80-4.5 Mcg Inhaler INHALATION 2 puff RT-BID YESY Administration Hydromorphone HCl 0.5 mg 12/30/23 14:41 12/30/23 15:45 Hydromorphone 0.5 Mg/0.5 Ml Syringe IVP 0.5 mg Q3HR PRN Administration Moderate Pain (Scale 4 to 6) Sodium Chloride 1,000 mls @ 75 mls/hr 12/30/23 14:30 12/30/23 18:01 Saline 0.9% IV 75 mls/hr .[id number] YESY Administration Piperacillin Sod/Tazobactam 100 mls @ 25 mls/hr 12/30/23 16:00 12/30/23 23:06 Sod 3.375 gm/ Sodium Chloride IVPB 25 mls/hr Q8HR YESY Administration Protocol Ipratropium [place] 0.5 mg 12/31/23 08:00 Ipratropium 0.5 Mg/2.5 Ml Nebu INHALATION RT-QID [facility] Levothyroxine Sodium 25 mcg 12/31/23 09:00 Levothyroxine 25 Mcg Tab PO DAILY [facility] Naloxone HCl 0.2 mg 12/30/23 14:41 Naloxone 0.4 Mg/Ml 1 Ml Vial IV Q2M PRN Opioid Reversal Ondansetron HCl 4 mg 12/30/23 14:41 Ondansetron 4 Mg/2 Ml Vial IVP Q8HR PRN Nausea And Vomiting Intake and Output 12/30/23 12/31/23 12/31/23 22:59 06:59 14:59 Intake Total 0 Output Total 1900 700 Balance -1900 -700 Intake: Oral 0 Output: Gastric Drainage 1900 700 Other: Voiding Method Urinal Urinal Weight 77.111 kg 12/30/23 12:58 12/30/23 12:58
--- NOTE | 2023-12-31 13:00 | CA ---
Transthoracic Echo Report Name: Anshul Guzman Age: 88 Gender: M : 1935 Exam Date: 12/31/2023 09:11 Exam Location: [facility] Ht (in): 62 Wt (lb): 170 Ordering Physician: Kelli Velasco Attending/Referring Phys: [id number], Rod Athlete Manager Geno Mccarty RDCS Procedure CPT: Indications: LV function, abnormal trops Cardiac Hx: Technical Quality: Good Contrast 1: Total Dose (mL): Contrast 2: Total Dose (mL): MEASUREMENTS (Male / Female) Normal Values 2D ECHO LVOT Diameter 2.3 cm LV Diastolic Volume MOD BP 58.4 cm??? 67 - 155 / 56 - 104 cm??? LV Systolic Volume MOD BP 23.5 cm??? 22 - 58 / 19 - 49 cm??? LV Ejection Fraction MOD BP 59.7 % >= 55 % LV Cardiac Index MOD BP 1327.1 cm???/min???m??? LV Diastolic Volume MOD 4C 57.2 cm??? LV Systolic Volume MOD 4C 23.9 cm??? LV Ejection Fraction MOD 4C 58.2 % LV Cardiac Index MOD 4C 1265.9 cm???/min???m??? LV Diastolic Length 4C 7.3 cm LV Systolic Length 4C 6.6 cm LV Diastolic Volume MOD 2C 56.5 cm??? LV Systolic Volume MOD 2C 20.7 cm??? LV Ejection Fraction MOD 2C 63.4 % LV Cardiac Index MOD 2C 1363.2 cm???/min???m??? LV Diastolic Length 2C 6.9 cm LV Systolic Length 2C 5.9 cm LA Volume 29.2 cm??? 18 - 58 / 22 - 52 cm??? LA Volume Index 15.6 cm???/m??? 16 - 28 cm???/m??? DOPPLER MV Peak Velocity 143.6 cm/s MV Peak Gradient 8.3 mmHg MV Mean Velocity 98.8 cm/s MV Mean Gradient 4.2 mmHg MV Velocity Time Integral 30.1 cm MV Area PHT 2.8 cm??? Mitral E Point Velocity 62.9 cm/s Mitral A Point Velocity 110.6 cm/s Mitral E to A Ratio 0.6 MV Deceleration Time 274.6 ms TR Peak Velocity 399.2 cm/s TR Peak Gradient 63.7 mmHg Right Atrial Pressure 5.0 mmHg Pulmonary Artery Systolic Pressu 68.7 mmHg Right Ventricular Systolic Press 68.7 mmHg PV Peak Velocity 95.3 cm/s PV Peak Gradient 3.6 mmHg FINDINGS Left Ventricle Left ventricular ejection fraction is estimated at 80-85%. Hyperdynamic left ventricle. Mid cavitary gradient 69mmHg, 127mmHg post ectopic beat. Left ventricular cavity size normal. Left ventricular wall thickness normal. No obvious regional wall motion abnormalities. Right Ventricle Normal right ventricular size and function. Severely elevated right ventricular systolic pressure. Right Atrium Normal right atrial size. Left Atrium Normal left atrial size. Mitral Valve Structurally normal mitral valve. No evidence for mitral valve prolapse. Mild mitral stenosis. Trace mitral regurgitation. Aortic Valve Trileaflet aortic valve. No aortic valve stenosis or regurgitation. Tricuspid Valve Structurally normal tricuspid valve. No tricuspid stenosis. Mild tricuspid regurgitation. Pulmonic Valve Structurally normal pulmonic valve. No pulmonic stenosis. Trace pulmonic regurgitation. Pericardium No pericardial effusion. Aorta Normal size aortic root and proximal ascending aorta. CONCLUSIONS Hyperdynamic LV with an ejection fraction of 80-85% with mid cavity gradient up to about 70 mmHg Aortic sclerosis with no stenosis or regurgitation Severe pulmonary hypertension Previewed by: Dr. Yonatan Whitaker MD (Electronically Signed) Final Date: 31 Dec 2023 12:59
--- NOTE | 2023-12-31 14:37 | P.PN ---
Subjective Progress Note Date: 12/31/23 CHIEF COMPLAINT: Gastric outlet obstruction HISTORY OF PRESENT ILLNESS: Patient had 1.9 L NG tube output yesterday and 700 mL output through the night. Patient is now having flatus. His abdominal pain has resolved. Denies any nausea. Afebrile. WBC is down from 13.6-10.4 Hgb 14.5 platelets 184 potassium is 3.1 creatinine 1.42 patient seen by cardiology regarding elevated troponins. PHYSICAL EXAM: VITAL SIGNS: Reviewed. GENERAL: Well-developed in no acute distress. ABDOMEN: Soft. Nondistended. Nontender. NEUROLOGIC: Alert and oriented. Cranial nerves II through XII grossly intact. ASSESSMENT: 1. Gastric outlet obstruction 2. Abdominal pain with nausea and vomiting 3. Elevated troponin seen by cardiology service. They ordered an Echo PLAN: -Continue NG tube for decompression -Keep patient n.p.o. -CT scan abdomen pelvis with oral contrast ordered for Wednesday for further evalu ation of patient's gastric outlet obstruction -Patient scheduled for EGD on 01/03/[address] Coulter Physician Director Private note has been reviewed by physician. Signing provider agrees with the documented findings, assessment, and plan of care. Objective - Vital Signs Vital signs: Vital Signs Temp 97.6 F 12/31/23 08:00 Pulse 68 12/31/23 13:01 Resp 18 12/31/23 08:00 BP 123/66 12/31/23 12:00 Pulse Ox 92 L 12/31/23 12:00 FiO2 Intake & Output 12/30/23 12/31/23 12/31/23 18:59 06:59 18:59 Intake Total 0 Output Total 2600 Balance 0 -2600 Weight 77.111 kg Intake: Oral 0 Output: Gastric Drainage 2600 Other: Voiding Method Urinal Urinal Urinal - Labs CBC & Chem 7: 12/31/23 08:40 12/31/23 08:40 Labs: Abnormal Lab Results - Last 24 Hours (Table) 12/30/23 12/30/23 12/30/23 Range/Units 12:58 12:58 14:25 Neutrophils # (1.3-7.7) k/uL Lymphocytes # (1.0-4.8) k/uL Monocytes # (0-1.0) k/uL Potassium (3.5-5.1) mmol/L Chloride 87 L (98-107) mmol/L Carbon Dioxide 40 H (22-30) mmol/L BUN 61 H (9-20) mg/dL Creatinine 1.27 H (0.66-1.25) mg/dL Glucose 150 H (74-99) mg/dL POC Glucose (mg/dL) (70-110) mg/dL Total Bilirubin 2.3 H (0.2-1.3) mg/dL Troponin I 0.427 H* (0.000-0.034) ng/mL Urine Protein 1+ H (Negative) Urine Ketones 1+ H (Negative) Urine Bilirubin 1+ H (Negative) Hyaline Casts 8 H (0-2) /lpf Urine Mucus Rare H (None) /hpf 12/30/23 12/30/23 12/30/23 Range/Units 15:40 19:30 19:45 Neutrophils # (1.3-7.7) k/uL Lymphocytes # (1.0-4.8) k/uL Monocytes # (0-1.0) k/uL Potassium (3.5-5.1) mmol/L Chloride (98-107) mmol/L Carbon Dioxide (22-30) mmol/L BUN (9-20) mg/dL Creatinine (0.66-1.25) mg/dL Glucose (74-99) mg/dL POC Glucose (mg/dL) 131 H (70-110) mg/dL Total Bilirubin (0.2-1.3) mg/dL Troponin I 0.390 H* 0.426 H* (0.000-0.034) ng/mL Urine Protein (Negative) Urine Ketones (Negative) Urine Bilirubin (Negative) Hyaline Casts (0-2) /lpf Urine Mucus (None) /hpf 12/31/23 12/31/23 Range/Units 08:40 08:40 Neutrophils # 8.2 H (1.3-7.7) k/uL Lymphocytes # 0.7 L (1.0-4.8) k/uL Monocytes # 1.1 H (0-1.0) k/uL Potassium 3.1 L (3.5-5.1) mmol/L Chloride (98-107) mmol/L Carbon Dioxide 37 H (22-30) mmol/L BUN 50 H (9-20) mg/dL Creatinine 1.42 H (0.66-1.25) mg/dL Glucose (74-99) mg/dL POC Glucose (mg/dL) (70-110) mg/dL Total Bilirubin (0.2-1.3) mg/dL Troponin I (0.000-0.034) ng/mL Urine Protein (Negative) Urine Ketones (Negative) Urine Bilirubin (Negative) Hyaline Casts (0-2) /lpf Urine Mucus (None) /hpf
--- NOTE | 2023-12-31 15:28 | P.PN ---
Subjective Progress Note Date: 12/31/23 No new complaints. Nausea and abd pain have improved. Troponins flat. Gen: in no apparent distress, resting comfortably in bed Eyes: PERRL, no scleral injection or icterus HENT: normocephalic, atraumatic, good hearing acuity, moist mucous membranes Neck: no tracheal deviation, full range of motion Resp: good air exchange, breathing comfortably with no accessory muscle use, no tactile fremitus, clear to auscultation bilaterally CVS: good distal perfusion x 4, no pitting edema, regular rate and rhythm without murmurs GI: soft, tender to palpation in the epigastrium and right upper quadrant with mild distention : no suprapubic tenderness, no CVAT, hernandez catheter not present MSK: no clubbing, no cyanosis, no noted contractures of extremities Skin: no noted rashes, petechiae; temperature of skin is appropriate Neuro: moving all extremities without signs of weakness, CN II-XII intact Psych: cooperative, euthymic mood, insight and judgment intact Hospital Course: 88-year-old man with a medical history of hypertension, hyperlipidemia, COPD, hypothyroidism presented for evaluation of nausea, vomiting. In the emergency room, patient was afebrile, 147/92, heart rate 89, 92% on 4 L of nasal cannula. CBC demonstrates leukocytosis to 13.6, otherwise unremarkable. Basic metabolic panel shows chloride of 87, CO2 of 40, BUN of 61, creatinine of 1.27. Liver function test demonstrate elevated bilirubin to 2.3, otherwise unremarkable. Troponins 0.427 then trended to 0.39. UA showed 1+ protein, 1+ ketones, 1+ bilirubin, 8 hyaline cast. Influenza A, B, RSV, COVID were negative. Abdomen/ pelvis CT demonstrated findings of a markedly distended gastric lumen with herniation through the hiatus into the thorax as well as a gastric outlet obstruction. Initial EKG demonstrated normal sinus rhythm with evidence of fusion beats. Repeat EKGs confirm this finding. Patient underwent nasogastric tube insertion with postprocedure KUB demonstrating good placement. Patient was admitted to medicine with surgical consultation. Assessment/plan: Gastric Outlet Obstruction Nausea and Vomiting -Patient was admitted as an inpatient with telemetry to cardiac selective -General surgery was consulted, they will manage conservatively with NG tube and n.p.o. status, no plans for surgical intervention -Zofran as needed for nausea, use sparingly considering ventricular ectopy as below -Morphine as needed for pain control -IV fluids: NS 75cc/hr -Zosyn Elevated Troponin Ventricular Ectopy Severe pulmonary hypertension Hyperdynamic LV Systolic Function, EF 80-85% -Trend troponins -Monitor on telemetry -Cardiology was consulted -Echocardiogram ordered COPD with chronic respiratory failure, not in exacerbation Hypothyroidism HTN HLD -Home medications reviewed and reconciled Pt is Full Code Objective - Vital Signs Vital signs: Vital Signs Temp 97.6 F 12/31/23 08:00 Pulse 74 12/31/23 14:00 Resp 18 12/31/23 14:00 BP 123/66 12/31/23 12:00 Pulse Ox 92 L 12/31/23 12:00 FiO2 Intake & Output 12/30/23 12/31/23 12/31/23 18:59 06:59 18:59 Intake Total 0 100 Output Total 2600 Balance 0 -2600 100 Weight 77.111 kg Intake: Intake, IV Titration 100 Amount Piperacillin-Tazobactam 3 100 .375 gm In Sodium Chloride 0.9% 100 ml @ 25 mls/hr IVPB Q8HR [facility] Rx# :[id number] Oral 0 Output: Gastric Drainage 2600 Other: Voiding Method Urinal Urinal Urinal - Labs CBC & Chem 7: 12/31/23 08:40 12/31/23 08:40 Labs: Abnormal Lab Results - Last 24 Hours (Table) 12/30/23 12/30/23 12/30/23 Range/Units 15:40 19:30 19:45 Neutrophils # (1.3-7.7) k/uL Lymphocytes # (1.0-4.8) k/uL Monocytes # (0-1.0) k/uL Potassium (3.5-5.1) mmol/L Carbon Dioxide (22-30) mmol/L BUN (9-20) mg/dL Creatinine (0.66-1.25) mg/dL POC Glucose (mg/dL) 131 H (70-110) mg/dL Troponin I 0.390 H* 0.426 H* (0.000-0.034) ng/mL 12/31/23 12/31/23 Range/Units 08:40 08:40 Neutrophils # 8.2 H (1.3-7.7) k/uL Lymphocytes # 0.7 L (1.0-4.8) k/uL Monocytes # 1.1 H (0-1.0) k/uL Potassium 3.1 L (3.5-5.1) mmol/L Carbon Dioxide 37 H (22-30) mmol/L BUN 50 H (9-20) mg/dL Creatinine 1.42 H (0.66-1.25) mg/dL POC Glucose (mg/dL) (70-110) mg/dL Troponin I (0.000-0.034) ng/mL
[2023-12-31 16:14] LABS: Glucose,Whole Blood 82 mg/dL (70-110)
--- NOTE | 2023-12-31 19:46 | XR ---
EXAMINATION TYPE: XR chest 1V DATE OF EXAM: 12/31/2023 7:27 PM CLINICAL INDICATION:Male, 88 years old with history of NG tube placement; [facility] COMPARISON: 12/30/2023 TECHNIQUE: XR chest 1V Portable AP radiograph of the chest.. FINDINGS: Lines/Tubes/Devices: NG tube likely courses through a large hiatal hernia before terminating near the level of the diaphra gm in the expected location of the GE junction. Monitor leads also overlie the chest. Heart/mediastinum: Stable mediastinum with borderline mild cardiac enlargement, moderate atherosclero tic calcification of the aorta and mild tortuosity. Pulmonary vascularity: Not increased, Lungs/Pleura: Stable mild chronic coarsening of the interstitium. Lungs show no focal consolidation, pleural effusion, or pneumothorax. Musculoskeletal: No acute osseous abnormality demonstrated in the limits of the exam. Other findings: None. IMPRESSION: 1. NG tube likely courses through a large hiatal hernia before terminating near the level of the faustino phragm in the expected location of the GE junction. Recommend several centimeters of advancement. 2. Otherwise stable cardiopulmonary status.
[2023-12-31 20:07] LABS: Glucose,Whole Blood 77 mg/dL (70-110)
--- NOTE | 2024-01-01 00:13 | XR ---
EXAM: XR chest 1V portable CLINICAL INDICATION:Male, 88 years old with history of NG tube placement; [facility] COMPARISON: Chest x-ray one hour earlier TECHNIQUE: Chest single view. FINDINGS: The NG tube has been advanced, however coils back in itself near the level of the diaphragm and termi nates over the left inferior cardiac silhouette, very likely coiled within the hernia. Remainder of exam findings remain unchanged. IMPRESSION: 1. NG tube has been advanced, however coils back in itself near the level of the diaphragm and termi nates over the left inferior cardiac silhouette, very likely coiled within the hernia. 2. Recommend several centimeters of additional advancement followed by reimaging.
[2024-01-01 06:19] LABS: Glucose,Whole Blood 67 mg/dL (70-110)
[2024-01-01 06:38] LABS: Glucose,Whole Blood 73 mg/dL (70-110)
[2024-01-01 08:13] LABS: Basophils % (A) 1 %; Eosinophils # (A) 0.3 k/uL (0-0.7); Eosinophils % (A) 4 %; HCT 45.2 % (39.0-53.0); HGB 13.9 gm/dL (13.0-17.5); Lymphocytes # (A) 0.7 k/uL (1.0-4.8); Lymphocytes % (A) 9 %; MCH 28.6 pg (25.0-35.0); MCHC 30.8 g/dL (31.0-37.0); MCV 92.9 fL (80.0-100.0); Mean Platelet Volume 7.4; Monocytes # (A) 0.7 k/uL (0-1.0); Monocytes % (A) 10 %; Neutrophils # (A) 5.6 k/uL (1.3-7.7); Neutrophils % (A) 75 %; Platelet Count 169 k/uL (150-450); RBC 4.87 m/uL (4.30-5.90); RDW 14.6 % (11.5-15.5); WBC 7.5 k/uL (3.8-10.6)
[2024-01-01 08:32] LABS: African American GFR (CKD) 75 (>60 ml/min/1.73 sqM); Anion Gap 6 mmol/L; Blood Urea Nitrogen 43 mg/dL (9-20); Calcium 8.9 mg/dL (8.4-10.2); Carbon Dioxide 36 mmol/L (22-30); Chloride 100 mmol/L (98-107); Glucose 121 mg/dL (74-99); Magnesium 2.2 mg/dL (1.6-2.3); Non-African American GFR(CKD) 65 (>60 ml/min/1.73 sqM); Potassium 3.2 mmol/L (3.5-5.1); Sodium 142 mmol/L (137-145)
--- NOTE | 2024-01-01 10:37 | P.PN ---
Subjective Progress Note Date: 01/01/24 JEFFREY. NGT dislodged overnight to be replaced by nursing staff this AM. No N/V. No worsening abdominal pain. No F/C. Admits to flatus but no BM. Out of bed in chair at time of evaluation. Objective - Vital Signs Vital signs: Vital Signs Temp 97.7 F 01/01/24 08:12 Pulse 74 01/01/24 08:12 Resp 16 01/01/24 04:00 BP 158/76 01/01/24 08:12 Pulse Ox 94 L 01/01/24 09:20 FiO2 Intake & Output 12/31/23 01/01/24 01/01/24 18:59 06:59 18:59 Intake Total 100 465 Output Total 650 Balance 100 -185 Intake: Intake, IV Titration 100 225 Amount Piperacillin-Tazobactam 3 100 .375 gm In Sodium Chloride 0.9% 100 ml @ 25 mls/hr IVPB Q8HR [facility] Rx# :[id number] Sodium Chloride 0.9% 1, 225 000 ml @ 75 mls/hr IV . [id number] [facility] Rx#:[id number] Oral 240 Output: Gastric Drainage 400 Urine 250 Other: Voiding Method Urinal Urinal Urinal # Voids 1 - Exam Gen: AxO, NAD Pulm: non-labored respirations Abd: soft, non-tender, moderately distended. No guarding/rebound/rigidity Extrem: no edema seen - Labs CBC & Chem 7: 01/01/24 07:52 01/01/24 07:52 Labs: Abnormal Lab Results - Last 24 Hours (Table) 01/01/24 01/01/24 01/01/24 Range/Units 06:17 07:52 07:52 MCHC 30.8 L (31.0-37.0) g/dL Lymphocytes # 0.7 L (1.0-4.8) k/uL Potassium 3.2 L (3.5-5.1) mmol/L Carbon Dioxide 36 H (22-30) mmol/L BUN 43 H (9-20) mg/dL Glucose 121 H (74-99) mg/dL POC Glucose (mg/dL) 67 L (70-110) mg/dL Assessment and Plan Assessment: Patient is a 88M who presents with concerns for GOO Plan: -NPO -NGT to LIS -IVF hydration -Plan for CT for further evaluation on 01/02/24 -Tentative plan for EGD on 01/03/24 -No acute surgical intervention Jean Carlos Brar MD General Surgery
[2024-01-01 11:32] LABS: Glucose,Whole Blood 107 mg/dL (70-110)
--- NOTE | 2024-01-01 11:32 | P.PN ---
Subjective HISTORY OF PRESENT ILLNESS: This is a 88-year-old male with a past medical history significant for hypertension, hyperlipidemia, diabetes, and hypothyroidism. Patient does not follow with a welding teacher. The patient states he follows at the [facility] for his health care. We have been asked to see the patient in consultation for elevated troponins. Patient examined at the bedside. Patient presented to the hospital with a chief complaint of nausea and vomiting. Patient states he was not passing gas or having bowel movements at home. He states this is the first time he has had any type of bowel issues like this and he initially thought he had the flu. The patient was found to have a gastric outlet obstruction and had an NG tube placed. He does report passing flatus this morning. Patient reports he has a history of COPD and does report shortness of breath with exertion. He does use oxygen at home. He denies waking up at night short of breath. He denies any dizziness or lightheadedness. He denies any chest pain or pressure. Patient is a former cigarette smoker. He denies any known history of CAD. DIAGNOSTICS: - EKG reveals sinus mechanism with fusion beats. PVCs. T wave inversions inferiorly. - Chest xray NG tube within the stomach. Marked COPD. Cardiomegaly without overt CHF. - Laboratory data: WBC 10.4. Hemoglobin 14.5. Platelet count 184. Sodium 142. Potassium 3.1. BUN 50. Creatinine 1.42. Magnesium 2.1. Troponin 0.427. 0.390. 0.426. - Current home cardiac medications include aspirin 81 mg at night, simvastatin 40 mg at night, atenolol 25 mg twice a day - No previous echocardiogram, stress test, or cardiac catheterization available in EMR for review 01/01/2024 Patient examined this morning. Patient is sitting up in the chair. Patient's NG tube did fall out this morning just prior to examination. Patient denies any abdominal pain. Patient states he is passing flatus. He denies having a bowel movement. He denies any chest pain or pressure. He denies any shortness of breath. Echocardiogram completed revealing hyperdynamic left ventricle with ejection fraction 80 to 85%, mid cavitary gradient 69 mmHg, 127 mmHg post ectopic beat, no obvious regional wall motion abnormalities, severely elevated right ventricular systolic pressure, RVSP 68.7, mild TR, mild MS, mild MR PHYSICAL EXAM: VITAL SIGNS: Reviewed. GENERAL: Well-developed in no acute distress. HEENT: Head is normocephalic. Pupils are equal, round. Sclerae anicteric. Mucous membranes of the mouth are moist. Neck supple. No JVD or thyromegaly LUNGS: Respirations even and unlabored. Lungs essentially clear to auscultation bilaterally. HEART: Regular rate and rhythm. S1 and S2 heard. Systolic murmur noted ABDOMEN: Soft. Nondistended. Nontender. EXTREMITIES: Normal range of motion. No clubbing or cyanosis. Peripheral pulses intact. No lower extremity edema NEUROLOGIC: Awake and alert. Oriented x 3. ASSESSMENT: Nausea and vomiting Gastric outlet obstruction Acute kidney injury Abnormal troponins, flat, likely secondary to VALENTE, however high probability for underlying CAD Hypertension Hyperlipidemia Diabetes Hypothyroidism Hypokalemia Severe pulmonary hypertension Hyperdynamic LV with ejection fraction 80 to 85% with mid cavitary gradient 69 mmHg PLAN: General surgery following. Plans for CT abdomen and pelvis on Wednesday and EGD on Wednesday. Continue current cardiac medications Continue telemetry monitoring Increase atenolol to 50 mg in the morning and 25 mg at night to help prevent tachycardia as tachycardia would result in elevation of mid cavitary gradient. No plans for invasive cardiac workup at this time Further recommendations pending patient course Nurse practitioner note has been reviewed by physician. Signing provider agrees with the documented findings, assessment, and plan of care documented by CONTROLLED AREA CHECKER as a scribe. Objective - Vital Signs Vital signs: Vital Signs Temp 97.7 F 01/01/24 08:12 Pulse 74 01/01/24 08:12 Resp 16 01/01/24 04:00 BP 158/76 01/01/24 08:12 Pulse Ox 94 L 01/01/24 09:20 FiO2 Intake & Output 12/31/23 01/01/24 01/01/24 18:59 06:59 18:59 Intake Total 100 465 Output Total 650 Balance 100 -185 Intake: Intake, IV Titration 100 225 Amount Piperacillin-Tazobactam 3 100 .375 gm In Sodium Chloride 0.9% 100 ml @ 25 mls/hr IVPB Q8HR [facility] Rx# :[id number] Sodium Chloride 0.9% 1, 225 000 ml @ 75 mls/hr IV . [id number] [facility] Rx#:[id number] Oral 240 Output: Gastric Drainage 400 Urine 250 Other: Voiding Method Urinal Urinal Urinal # Voids 1 - Labs CBC & Chem 7: 01/01/24 07:52 01/01/24 07:52 Labs: Abnormal Lab Results - Last 24 Hours (Table) 01/01/24 01/01/24 01/01/24 Range/Units 06:17 07:52 07:52 MCHC 30.8 L (31.0-37.0) g/dL Lymphocytes # 0.7 L (1.0-4.8) k/uL Potassium 3.2 L (3.5-5.1) mmol/L Carbon Dioxide 36 H (22-30) mmol/L BUN 43 H (9-20) mg/dL Glucose 121 H (74-99) mg/dL POC Glucose (mg/dL) 67 L (70-110) mg/dL
--- NOTE | 2024-01-01 11:51 | XR ---
EXAMINATION TYPE: XR chest 1V DATE OF EXAM: 01/01/2024 COMPARISON: 12/31/2023 HISTORY: NG tube placement TECHNIQUE: Single frontal view of the chest is obtained. FINDINGS: The NG tube is folded upon itself and the tip is in the midesophagus. There is a large retrocardiac mass likely a large hiatal hernia with intrathoracic stomach. There is atelectasis or chronic interstitial changes in the left lung.. There is no pneumothorax. The osseous structures are intact. IMPRESSION: 1. NG tube folded upon itself. The tip is in the midesophagus. 2. Large hiatal hernia with intrathoracic stomach. 3. No change in the interstitial opacities in the left lung.
--- NOTE | 2024-01-01 12:59 | XR ---
EXAMINATION TYPE: XR chest 1V DATE OF EXAM: 01/01/2024 COMPARISON: 01/01/2024 HISTORY: NG tube placement TECHNIQUE: Single frontal view of the chest is obtained. FINDINGS: The NG tube is no longer folded upon itself with the tip is in the retrocardiac region presumably wit hin the very large intrathoracic stomach. The left lower lobe and upper lobe interstitial infiltrates are unchanged. There is no pneumothorax or large pleural effusion. IMPRESSION: NG tube tip in the retrocardiac region presumably within the large intrathoracic stomach .
--- NOTE | 2024-01-01 14:55 | XR ---
EXAMINATION TYPE: XR chest 1V DATE OF EXAM: 01/01/2024 COMPARISON: 01/01/2024 earlier exam INDICATION: Tube readjustment TECHNIQUE: Single frontal view of the chest is obtained. FINDINGS: The heart size is normal. The pulmonary vasculature is normal. The lungs are clear. Nasogastric tube is coiled within the distal esophagus region with the tip directed towards the thora cic inlet. There appears to be a large hiatal hernia present. IMPRESSION: 1. A nasogastric tube curled within the mid esophageal region.
--- NOTE | 2024-01-01 14:57 | XR ---
EXAMINATION TYPE: XR chest 1V portable DATE OF EXAM: 01/01/2024 COMPARISON: Earlier exams INDICATION: OG tube repositioning TECHNIQUE: Single frontal view of the chest is obtained. FINDINGS: Cardiopulmonary findings are stable. Nasogastric tube is now curled within the proximal to mid esophageal region at the level of the aorti c arch the tip directed superiorly. IMPRESSION: 1. Nasogastric tube within the proximal to mid esophageal region.
--- NOTE | 2024-01-01 14:57 | XR ---
EXAMINATION TYPE: XR chest 1V portable DATE OF EXAM: 01/01/2024 COMPARISON: Earlier exams INDICATION: OG tube repositioning TECHNIQUE: Single frontal view of the chest is obtained. FINDINGS: Cardiopulmonary findings are stable. Nasogastric tube is now curled within the proximal esophageal region the tip directed superiorly. IMPRESSION: 1. Nasogastric tube within the proximal esophageal region.
--- NOTE | 2024-01-01 14:59 | XR ---
EXAMINATION TYPE: XR chest 1V portable DATE OF EXAM: 01/01/2024 COMPARISON: Earlier exams INDICATION: OG tube repositioning TECHNIQUE: Single frontal view of the chest is obtained. FINDINGS: Cardiopulmonary findings are stable. Nasogastric tube is tip is now directed inferiorly. This is in the mid esophageal region just below a ortic arch may be directed towards the suspected hiatal hernia. Endobronchial placement cannot be exc luded at this time. IMPRESSION: 1. Nasogastric tube within the mid thoracic region.
--- NOTE | 2024-01-01 15:00 | XR ---
EXAMINATION TYPE: XR chest 1V portable DATE OF EXAM: 01/01/2024 COMPARISON: Earlier exams INDICATION: OG tube repositioning TECHNIQUE: Single frontal view of the chest is obtained. FINDINGS: Cardiopulmonary findings are stable. Nasogastric tube is tip is now directed inferiorly. This is in the distal thoracic level with the tip located at the approximate level of the diaphragm. This may be passing through the suspected large h iatal hernia. IMPRESSION: 1. Nasogastric tube tip at the level of the diaphragm.
--- NOTE | 2024-01-01 15:02 | XR ---
EXAMINATION TYPE: XR chest 1V portable DATE OF EXAM: 01/01/2024 1415 hours COMPARISON: Earlier exams INDICATION: OG tube repositioning TECHNIQUE: Single frontal view of the chest is obtained. FINDINGS: Cardiopulmonary findings are stable. Nasogastric tube is present with the tip directed superiorly at the level of the aortic arch. Her gra ft IMPRESSION: 1. Nasogastric tube tip directed superiorly at the level of the aortic arch.
--- NOTE | 2024-01-01 15:24 | P.PN ---
Subjective Progress Note Date: 01/01/24 No new complaints. Nausea and abd pain have improved. Troponins flat. Pts NGT fell out and had to be re-positioned several times today. I performed the final NGT re-insertion with good positioning. Gen: in no apparent distress, resting comfortably in bed Eyes: PERRL, no scleral injection or icterus HENT: normocephalic, atraumatic, good hearing acuity, moist mucous membranes Neck: no tracheal deviation, full range of motion Resp: good air exchange, breathing comfortably with no accessory muscle use, no tactile fremitus, clear to auscultation bilaterally CVS: good distal perfusion x 4, no pitting edema, regular rate and rhythm without murmurs GI: soft, tender to palpation in the epigastrium and right upper quadrant with mild distention : no suprapubic tenderness, no CVAT, hernandez catheter not present MSK: no clubbing, no cyanosis, no noted contractures of extremities Skin: no noted rashes, petechiae; temperature of skin is appropriate Neuro: moving all extremities without signs of weakness, CN II-XII intact Psych: cooperative, euthymic mood, insight and judgment intact Hospital Course: 88-year-old man with a medical history of hypertension, hyperlipidemia, COPD, hypothyroidism presented for evaluation of nausea, vomiting. In the emergency room, patient was afebrile, 147/92, heart rate 89, 92% on 4 L of nasal cannula. CBC demonstrates leukocytosis to 13.6, otherwise unremarkable. Basic metabolic panel shows chloride of 87, CO2 of 40, BUN of 61, creatinine of 1.27. Liver f unction test demonstrate elevated bilirubin to 2.3, otherwise unremarkable. Troponins 0.427 then trended to 0.39. UA showed 1+ protein, 1+ ketones, 1+ bilirubin, 8 hyaline cast. Influenza A, B, RSV, COVID were negative. Abdomen/pelvis CT demonstrated findings of a markedly distended gastric lumen with herniation through the hiatus into the thorax as well as a gastric outlet obstruction. Initial EKG demonstrated normal sinus rhythm with evidence of fusion beats. Repeat EKGs confirm this finding. Patient underwent nasogastric tube insertion with postprocedure KUB demonstrating good placement. Patient was admitted to medicine with surgical consultation. Assessment/plan: Gastric Outlet Obstruction Nausea and Vomiting -Patient was admitted as an inpatient with telemetry to cardiac selective -General surgery was consulted, they will manage conservatively with NG tube and n.p.o. status, -endoscopy planned on 01/02 -Zofran as needed for nausea, use sparingly considering ventricular ectopy as below -Morphine as needed for pain control -IV fluids: NS 75cc/hr -Zosyn Elevated Troponin Ventricular Ectopy Severe pulmonary hypertension Hyperdynamic LV Systolic Function, EF 80-85% -Trend troponins -Monitor on telemetry -Cardiology was consulted -Echocardiogram ordered, shows hyperdynamic EF, severe pHTN COPD with chronic respiratory failure, not in exacerbation Hypothyroidism HTN HLD -Home medications reviewed and reconciled Pt is Full Code Objective - Vital Signs Vital signs: Vital Signs Temp 97.8 F 01/01/24 11:34 Pulse 72 01/01/24 11:34 Resp 18 01/01/24 11:34 BP 176/85 01/01/24 11:34 Pulse Ox 96 01/01/24 11:34 FiO2 Intake & Output 12/31/23 01/01/24 01/01/24 18:59 06:59 18:59 Intake Total 231 986 7559 Output Total 650 Balance 100 -185 1100 Intake: Intake, IV Titration 161 848 0160 Amount Piperacillin-Tazobactam 3 100 200 .375 gm In Sodium Chloride 0.9% 100 ml @ 25 mls/hr IVPB Q8HR [facility] Rx# :[id number] Sodium Chloride 0.9% 1, 225 900 000 ml @ 75 mls/hr IV . [id number] [facility] Rx#:[id number] Oral 240 Output: Gastric Drainage 400 Urine 250 Other: Voiding Method Urinal Urinal Urinal # Voids 1 - Labs CBC & Chem 7: 01/01/24 07:52 01/01/24 07:52 Labs: Abnormal Lab Results - Last 24 Hours (Table) 01/01/24 01/01/24 01/01/24 Range/Units 06:17 07:52 07:52 MCHC 30.8 L (31.0-37.0) g/dL Lymphocytes # 0.7 L (1.0-4.8) k/uL Potassium 3.2 L (3.5-5.1) mmol/L Carbon Dioxide 36 H (22-30) mmol/L BUN 43 H (9-20) mg/dL Glucose 121 H (74-99) mg/dL POC Glucose (mg/dL) 67 L (70-110) mg/dL
[2024-01-01 16:10] LABS: Glucose,Whole Blood 88 mg/dL (70-110)
[2024-01-01 20:06] LABS: Glucose,Whole Blood 76 mg/dL (70-110)
[2024-01-01] MEDS: POTASSIUM CHLORIDE 10 MEQ in WATER FOR INJECTION 1 100ML.BAG IVPB SCH (20:13)
[2024-01-01] MEDS: atenoloL 25 MG TAB PO SCH (20:13)
[2024-01-02 03:45] LABS: Glucose,Whole Blood 81 mg/dL (70-110)
[2024-01-02 06:00] LABS: Glucose,Whole Blood 75 mg/dL (70-110)
[2024-01-02 07:53] LABS: African American GFR (CKD) >90 (>60 ml/min/1.73 sqM); Anion Gap 8 mmol/L; Blood Urea Nitrogen 30 mg/dL (9-20); Calcium 8.5 mg/dL (8.4-10.2); Carbon Dioxide 29 mmol/L (22-30); Chloride 101 mmol/L (98-107); Glucose 71 mg/dL (74-99); Non-African American GFR(CKD) 83 (>60 ml/min/1.73 sqM); Potassium 3.7 mmol/L (3.5-5.1); Sodium 138 mmol/L (137-145)
[2024-01-02] MEDS: atenoloL 50 MG TAB PO SCH (08:33)
[2024-01-02] MEDS: IOPAMIDOL CONTRAST (ORAL USE) VIAL PO PRN (09:08)
--- NOTE | 2024-01-02 10:28 | P.PN ---
Subjective HISTORY OF PRESENT ILLNESS: This is a 88-year-old male with a past medical history significant for hypertension, hyperlipidemia, diabetes, and hypothyroidism. Patient does not follow with a christian science reader. The patient states he follows at the [facility] for his health care. We have been asked to see the patient in consultation for elevated troponins. Patient examined at the bedside. Patient presented to the hospital with a chief complaint of nausea and vomiting. Patient states he was not passing gas or having bowel movements at home. He states this is the first time he has had any type of bowel issues like this and he initially thought he had the flu. The patient was found to have a gastric outlet obstruction and had an NG tube placed. He does report passing flatus this morning. Patient reports he has a history of COPD and does report shortness of breath with exertion. He does use oxygen at home. He denies waking up at night short of breath. He denies any dizziness or lightheadedness. He denies any chest pain or pressure. Patient is a former cigarette smoker. He denies any known history of CAD. DIAGNOSTICS: - EKG reveals sinus mechanism with fusion beats. PVCs. T wave inversions inferiorly. - Chest xray NG tube within the stomach. Marked COPD. Cardiomegaly without overt CHF. - Laboratory data: WBC 10.4. Hemoglobin 14.5. Platelet count 184. Sodium 142. Potassium 3.1. BUN 50. Creatinine 1.42. Magnesium 2.1. Troponin 0.427. 0.390. 0.426. - Current home cardiac medications include aspirin 81 mg at night, simvastatin 40 mg at night, atenolol 25 mg twice a day - No previous echocardiogram, stress test, or cardiac catheterization available in EMR for review 01/01/2024 Patient examined this morning. Patient is sitting up in the chair. Patient's NG tube did fall out this morning just prior to examination. Patient denies any abdominal pain. Patient states he is passing flatus. He denies having a bowel movement. He denies any chest pain or pressure. He denies any shortness of breath. Echocardiogram completed revealing hyperdynamic left ventricle with ejection fraction 80 to 85%, mid cavitary gradient 69 mmHg, 127 mmHg post ectopic beat, no obvious regional wall motion abnormalities, severely elevated right ventricular systolic pressure, RVSP 68.7, mild TR, mild MS, mild MR 01/02/2024 Patient examined this morning at the bedside. Patient denies chest pain or pressure. He denies shortness of breath. He continues to have NG tube to low intermittent suction. He reports passing flatus this morning but no bowel movement. Vital signs are stable. Patient did have 1 isolated high blood p ressure reading this morning. Previous blood pressure 128/72. PHYSICAL EXAM: VITAL SIGNS: Reviewed. GENERAL: Well-developed in no acute distress. HEENT: Head is normocephalic. Pupils are equal, round. Sclerae anicteric. Mucous membranes of the mouth are moist. Neck supple. No JVD or thyromegaly LUNGS: Respirations even and unlabored. Lungs essentially clear to auscultation bilaterally. HEART: Regular rate and rhythm. S1 and S2 heard. Systolic murmur noted ABDOMEN: Soft. Nondistended. Nontender. EXTREMITIES: Normal range of motion. No clubbing or cyanosis. Peripheral pulses intact. No lower extremity edema NEUROLOGIC: Awake and alert. Oriented x 3. ASSESSMENT: Nausea and vomiting Gastric outlet obstruction Acute kidney injury Abnormal troponins, flat, likely secondary to VALENTE, however high probability for underlying CAD Hypertension Hyperlipidemia Diabetes Hypothyroidism Hypokalemia Severe pulmonary hypertension Hyperdynamic LV with ejection fraction 80 to 85% with mid cavitary gradient 69 mmHg PLAN: General surgery following. Plans for CT abdomen and pelvis today and EGD on Wednesday. Continue current cardiac medications Continue telemetry monitoring Atenolol increased yesterday to 50 mg in the morning and 25 mg at night to help prevent tachycardia as tachycardia would result in elevation of mid cavitary gradient. No plans for invasive cardiac workup at this time Further recommendations pending patient course Nurse practitioner note has been reviewed by physician. Signing provider agrees with the documented findings, assessment, and plan of care documented by OTOLARYNGOLOGY TEACHER as a scribe. Objective - Vital Signs Vital signs: Vital Signs Temp 98.1 F 01/02/24 08:47 Pulse 65 01/02/24 08:47 Resp 16 01/02/24 08:47 BP 160/92 01/02/24 08:47 Pulse Ox 98 01/02/24 09:09 FiO2 Intake & Output 01/01/24 01/02/24 01/02/24 18:59 06:59 18:59 Intake Total 1700 1220 Output Total 525 500 350 Balance 1175 -500 870 Intake: Intake, IV Titration 1100 1100 Amount Piperacillin-Tazobactam 3 200 200 .375 gm In Sodium Chloride 0.9% 100 ml @ 25 mls/hr IVPB Q8HR [facility] Rx# :[id number] Sodium Chloride 0.9% 1, 900 900 000 ml @ 75 mls/hr IV . [id number] [facility] Rx#:[id number] Oral 600 Other 120 Output: Gastric Drainage 350 350 Urine 175 500 Other: Voiding Method Urinal Urinal Urinal # Voids 1 2 - Labs CBC & Chem 7: 01/01/24 07:52 01/02/24 06:44 Labs: Abnormal Lab Results - Last 24 Hours (Table) 01/02/24 Range/Units 06:44 BUN 30 H (9-20) mg/dL Glucose 71 L (74-99) mg/dL
--- NOTE | 2024-01-02 11:33 | CT ---
EXAMINATION TYPE: CT abdomen pelvis wo con DATE OF EXAM: 01/02/2024 COMPARISON: 12/30/2023 HISTORY: Abdominal pain Automated exposure control for dose reduction was used. TECHNIQUE: Helical acquisition of images was performed from the lung bases through the pelvis. FINDINGS: There has been interval development of a small left pleural effusion and small infiltrate/atelectasis . There are marked emphysematous changes.. There is a large hiatal hernia with an intrathoracic stomach. There is oral contrast within the stoma ch and within the proximal small bowel in the stomach which is markedly reduced in size compared to p revious indicating resolution of the previous gastric outlet obstruction. Gallbladder is normal and there is no gallstone, wall thickening, pericholecystic fluid or distention . There is no biliary ductal dilatation. There is no organomegaly of the liver, pancreas, spleen or adrenal glands. There are no renal calcifications or hydronephrosis. The caliber of the abdominal aorta is normal and there is no retroperitoneal adenopathy or hemorrhage . There is marked atheromatous changes of the abdominal aorta. The bowel loops are normal in caliber is no evidence of obstruction. No inflammatory changes are iden tified in the mesentery and there is no free intraperitoneal air or fluid. There is no pelvic mass, free fluid, abscess or adenopathy. There is marked diverticulosis of the col on without CT evidence of diverticulitis. 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 Large hiatal hernia with intrathoracic stomach. Resolution of the previous gastric outlet obstruct ion as described above. 2. Interval development of small left pleural effusion and left lower lobe infiltrate/atelectasis. 3. Marked diverticulosis without CT evidence of diverticulitis.
--- NOTE | 2024-01-02 11:51 | P.PN ---
Subjective Progress Note Date: 01/02/24 No new complaints. Nausea and abd pain have improved. CT A/P demosntrated resolution of gastric outlet obstruction. Gen: in no apparent distress, resting comfortably in bed Eyes: PERRL, no scleral injection or icterus HENT: normocephalic, atraumatic, good hearing acuity, moist mucous membranes Neck: no tracheal deviation, full range of motion Resp: good air exchange, breathing comfortably with no accessory muscle use, no tactile fremitus, clear to auscultation bilaterally CVS: good distal perfusion x 4, no pitting edema, regular rate and rhythm without murmurs GI: soft, tender to palpation in the epigastrium and right upper quadrant with mild distention : no suprapubic tenderness, no CVAT, hernandez catheter not present MSK: no clubbing, no cyanosis, no noted contractures of extremities Skin: no noted rashes, petechiae; temperature of skin is appropriate Neuro: moving all extremities without signs of weakness, CN II-XII intact Psych: cooperative, euthymic mood, insight and judgment intact Hospital Course: 88-year-old man with a medical history of hypertension, hyperlipidemia, COPD, hy pothyroidism presented for evaluation of nausea, vomiting. In the emergency room, patient was afebrile, 147/92, heart rate 89, 92% on 4 L of nasal cannula. CBC demonstrates leukocytosis to 13.6, otherwise unremarkable. Basic metabolic panel shows chloride of 87, CO2 of 40, BUN of 61, creatinine of 1.27. Liver function test demonstrate elevated bilirubin to 2.3, otherwise unremarkable. Troponins 0.427 then trended to 0.39. UA showed 1+ protein, 1+ ketones, 1+ bilirubin, 8 hyaline cast. Influenza A, B, RSV, COVID were negative. Abdomen/pelvis CT demonstrated findings of a markedly distended gastric lumen with herniation through the hiatus into the thorax as well as a gastric outlet obstruction. Initial EKG demonstrated normal sinus rhythm with evidence of fusion beats. Repeat EKGs confirm this finding. Patient underwent nasogastric tube insertion with postprocedure KUB demonstrating good placement. Patient was admitted to medicine with surgical consultation. Assessment/plan: Gastric Outlet Obstruction Nausea and Vomiting -Patient was admitted as an inpatient with telemetry to cardiac selective -General surgery was consulted, they will manage conservatively with NG tube and n.p.o. status, -endoscopy planned on 01/02 -Zofran as needed for nausea, use sparingly considering ventricular ectopy as below -Morphine as needed for pain control -IV fluids: NS 75cc/hr -Zosyn -CT A/P showed resolution of gastric outlet obstruction Elevated Troponin Ventricular Ectopy Severe pulmonary hypertension Hyperdynamic LV Systolic Function, EF 80-85% -Trend troponins -Monitor on telemetry -Cardiology was consulted -Echocardiogram ordered, shows hyperdynamic EF, severe pHTN COPD with chronic respiratory failure, not in exacerbation Hypothyroidism HTN HLD -Home medications reviewed and reconciled Pt is Full Code Objective - Vital Signs Vital signs: Vital Signs Temp 98.1 F 01/02/24 08:47 Pulse 61 01/02/24 11:29 Resp 16 01/02/24 11:29 BP 177/72 01/02/24 11:29 Pulse Ox 98 01/02/24 11:29 FiO2 Intake & Output 01/01/24 01/02/24 01/02/24 18:59 06:59 18:59 Intake Total 1700 1220 Output Total 525 500 450 Balance 1175 -500 770 Intake: Intake, IV Titration 1100 1100 Amount Piperacillin-Tazobactam 3 200 200 .375 gm In Sodium Chloride 0.9% 100 ml @ 25 mls/hr IVPB Q8HR [facility] Rx# :[id number] Sodium Chloride 0.9% 1, 900 900 000 ml @ 75 mls/hr IV . [id number] [facility] Rx#:[id number] Oral 600 Other 120 Output: Gastric Drainage 350 350 Urine 175 500 Other 100 Other: Voiding Method Urinal Urinal Urinal # Voids 1 2 - Labs CBC & Chem 7: 01/01/24 07:52 01/02/24 06:44 Labs: Abnormal Lab Results - Last 24 Hours (Table) 01/02/24 Range/Units 06:44 BUN 30 H (9-20) mg/dL Glucose 71 L (74-99) mg/dL
[2024-01-02 12:08] LABS: Glucose,Whole Blood 63 mg/dL (70-110)
[2024-01-02 16:36] LABS: Glucose,Whole Blood 92 mg/dL (70-110)
[2024-01-02] MEDS: LACTATED RINGERS 1,000 ML IV SCH (18:04)
--- NOTE | 2024-01-02 18:48 | P.PN ---
Subjective Progress Note Date: 01/02/24 Patient is being followed for gastric outlet obstruction. Additional diagnostic studies were obtained today. Family is at bedside who reports he has longstanding hiatal hernia. Patient has a nasogastric tube with minimal output. Abdomen: Nontender. Studies: CT of the abdomen pelvis independently reviewed demonstrated intrathoracic paraesophageal hiatal hernia with volvulus. Findings consistent for reason for gastric outlet obstruction. No small bowel dilation or obstruction. Plan: 1. Initial presentation of gastric outlet obstruction is from paraesophageal hiatal hernia. Nasogastric tube discontinued. 2. Surgical intervention with paraesophageal hiatal hernia repair discussed with patient's family and patient 3. N.p.o. except ice chips/popsicles Objective - Vital Signs Vital signs: Vital Signs Temp 97.8 F 01/02/24 18:10 Pulse 60 01/02/24 18:10 Resp 16 01/02/24 18:10 BP 174/71 01/02/24 18:10 Pulse Ox 98 01/02/24 18:10 FiO2 Intake & Output 01/01/24 01/02/24 01/02/24 18:59 06:59 18:59 Intake Total 1700 1235 Output Total 843 902 0064 Balance 1175 -500 185 Intake: IV 15 Invasive Line 2 15 Intake, IV Titration 1100 1100 Amount Piperacillin-Tazobactam 3 200 200 .375 gm In Sodium Chloride 0.9% 100 ml @ 25 mls/hr IVPB Q8HR [facility] Rx# :[id number] Sodium Chloride 0.9% 1, 900 900 000 ml @ 75 mls/hr IV . [id number] [facility] Rx#:[id number] Oral 600 Other 120 Output: Gastric Drainage 350 450 Urine 175 500 500 Other 100 Other: Voiding Method Urinal Urinal Urinal # Voids 1 2 2 # Bowel Movements 1 - Labs CBC & Chem 7: 01/01/24 07:52 01/02/24 06:44 Labs: Abnormal Lab Results - Last 24 Hours (Table) 01/02/24 01/02/24 Range/Units 06:44 12:07 BUN 30 H (9-20) mg/dL Glucose 71 L (74-99) mg/dL POC Glucose (mg/dL) 63 L (70-110) mg/dL
[2024-01-02] MEDS: ALBUTEROL NEBULIZED 2.5 MG/3 ML INHALATION PRN (20:04)
[2024-01-02 20:09] LABS: Glucose,Whole Blood 125 mg/dL (70-110)
[2024-01-03 06:04] LABS: Glucose,Whole Blood 90 mg/dL (70-110)
--- NOTE | 2024-01-03 10:29 | P.PN ---
Subjective Progress Note Date: 01/03/24 No new complaints. Patient has an appetite, had a bowel movement this morning. NG tube was pulled yesterday. CT A/P demosntrated resolution of gastric outlet obstruction. For my understanding, general surgery believes that patient may benefit from hiatal hernia repair. Today, I counseled the patient on some of the risks of surgery. Patient has had a hiatal hernia for 10 years and this is the first time he has had a gastric outlet obstruction, otherwise, his symptoms did include acid reflux. Patient does have several medical conditions that place him at a significantly elevated risk including the high likelihood of coronary artery disease given his elevation of troponin and EKG findings during admission, his severe COPD with chronic respiratory failure requiring 4 L of nasal cannula and consequently his severe pulmonary hypertension with an RVSP of 79. Conglomeration of these findings placed him at significant risk of MACE both during induction and throughout the procedure. Furthermore, patient does have an appetite, imaging findings demonstrate resolution of gastric outlet obstruction with conservative management with NGT over the weekend, and he is now having bowel movements. Gen: in no apparent distress, resting comfortably in bed Eyes: PERRL, no scleral injection or icterus HENT: normocephalic, atraumatic, good hearing acuity, moist mucous membranes Neck: no tracheal deviation, full range of motion Resp: good air exchange, breathing comfortably with no accessory muscle use, no tactile fremitus, clear to auscultation bilaterally CVS: good distal perfusion x 4, no pitting edema, regular rate and rhythm without murmurs GI: soft, tender to palpation in the epigastrium and right upper quadrant with mild distention : no suprapubic tenderness, no CVAT, hernandez catheter not present MSK: no clubbing, no cyanosis, no noted contractures of extremities Skin: no noted rashes, petechiae; temperature of skin is appropriate Neuro: moving all extremities without signs of weakness, CN II-XII intact Psych: cooperative, euthymic mood, insight and judgment intact Hospital Course: 88-year-old man with a medical history of hypertension, hyperlipidemia, COPD, hypothyroidism presented for evaluation of nausea, vomiting. In the emergency room, patient was afebrile, 147/92, heart rate 89, 92% on 4 L of nasal cannula. CBC demonstrates leukocytosis to 13.6, otherwise unremarkable. Basic metabolic panel shows chloride of 87, CO2 of 40, BUN of 61, creatinine of 1.27. Liver function test demonstrate elevated bilirubin to 2.3, otherwise unremarkable. Troponins 0.427 then trended to 0.39. UA showed 1+ protein, 1+ ketones, 1+ bilirubin, 8 hyaline cast. Influenza A, B, RSV, COVID were negative. Abdomen/pelvis CT demonstrated findings of a markedly distended gastric lumen with herniation through the hiatus into the thorax as well as a gastric outlet obstruction. Initial EKG demonstrated normal sinus rhythm with evidence of fusion beats. Repeat EKGs confirm this finding. Patient underwent nasogastric tube insertion with postprocedure KUB demonstrating good placement. Patient was admitted to medicine with surgical consultation. Assessment/plan: Preoperative Evaluation -NSQIP estimates risk of MACE to be 7.4%; risk of serious complication listed as 37.2%, risk of 18.9%. I do not recommend proceeding with surgery unless the case becomes emergent via evidence of incarceration of bowel, or unless our surgery team feels strongly that the benefits to this patient far outweigh the risks identified. I discussed the high risk of this procedure with the patient and family, and from here I will leave it between patient's surgeon and patient to determine best next course of action. Gastric Outlet Obstruction Nausea and Vomiting Paraesophageal Hiatal Hernia -Patient was admitted as an inpatient with telemetry to cardiac selective -General surgery was consulted, they will manage conservatively with NG tube and n.p.o. status, -endoscopy was canceled by surgery team -surgery team is considering repair of hiatal hernia -Zofran as needed for nausea, use sparingly considering ventricular ectopy as below -Morphine as needed for pain control -IV fluids: NS 75cc/hr -Zosyn -CT A/P showed resolution of gastric outlet obstruction Elevated Troponin Ventricular Ectopy Severe pulmonary hypertension Hyperdynamic LV Systolic Function, EF 80-85% -Trend troponins -Monitor on telemetry -Cardiology was consulted -Echocardiogram ordered, shows hyperdynamic EF, severe pHTN COPD with chronic respiratory failure, not in exacerbation Hypothyroidism HTN HLD -Home medications reviewed and reconciled Pt is Full Code Objective - Vital Signs Vital signs: Vital Signs Temp 97.5 F L 01/03/24 08:12 Pulse 78 01/03/24 08:12 Resp 18 05/06/24 08:12 BP 159/82 01/03/24 08:12 Pulse Ox 96 01/03/24 08:58 FiO2 Intake & Output 01/02/24 01/03/24 01/03/24 18:59 06:59 18:59 Intake Total 1235 10 Output Total 1050 250 Balance 185 -250 10 Intake: IV 15 10 Invasive Line 2 15 10 Intake, IV Titration 1100 Amount Piperacillin-Tazobactam 3 200 .375 gm In Sodium Chloride 0.9% 100 ml @ 25 mls/hr IVPB Q8HR [facility] Rx# :[id number] Sodium Chloride 0.9% 1, 900 000 ml @ 75 mls/hr IV . [id number] [facility] Rx#:[id number] Other 120 Output: Gastric Drainage 450 Urine 500 250 Other 100 Other: Voiding Method Urinal Urinal # Voids 2 2 # Bowel Movements 1 1 - Labs CBC & Chem 7: 01/01/24 07:52 01/02/24 06:44 Labs: Abnormal Lab Results - Last 24 Hours (Table) 01/02/24 01/02/24 Range/Units 12:07 19:58 POC Glucose (mg/dL) 63 L 125 H (70-110) mg/dL
[2024-01-03 10:34] LABS: Basophils % (A) 1 %; Eosinophils # (A) 0.4 k/uL (0-0.7); Eosinophils % (A) 5 %; HCT 44.3 % (39.0-53.0); HGB 13.9 gm/dL (13.0-17.5); Hypochromasia Slight; Lymphocytes # (A) 0.9 k/uL (1.0-4.8); Lymphocytes % (A) 12 %; MCH 29.2 pg (25.0-35.0); MCHC 31.4 g/dL (31.0-37.0); Mean Platelet Volume 7.8; Monocytes # (A) 0.6 k/uL (0-1.0); Monocytes % (A) 8 %; Neutrophils # (A) 5.1 k/uL (1.3-7.7); Neutrophils % (A) 71 %; Platelet Count 142 k/uL (150-450); RBC 4.76 m/uL (4.30-5.90); RDW 14.3 % (11.5-15.5); WBC 7.2 k/uL (3.8-10.6)
[2024-01-03 10:40] LABS: African American GFR (CKD) >90 (>60 ml/min/1.73 sqM); Anion Gap 6 mmol/L; Blood Urea Nitrogen 20 mg/dL (9-20); Calcium 8.5 mg/dL (8.4-10.2); Carbon Dioxide 29 mmol/L (22-30); Chloride 101 mmol/L (98-107); Glucose 88 mg/dL (74-99); Non-African American GFR(CKD) 85 (>60 ml/min/1.73 sqM); Potassium 3.4 mmol/L (3.5-5.1); Sodium 136 mmol/L (137-145)
[2024-01-03 11:43] LABS: Glucose,Whole Blood 80 mg/dL (70-110)
--- NOTE | 2024-01-03 12:42 | P.PN ---
Subjective Progress Note Date: 01/03/24 CHIEF COMPLAINT: Gastric outlet obstruction HISTORY OF PRESENT ILLNESS: Patient reports he is feeling better. Has had no further nausea or vomiting. The NG tube was discontinued during the weekend. He is able to tolerate ice chips and popsicles. He is having bowel movements and flatus. He is scheduled for hiatal hernia repair today with Dr. Coulter. Afebrile. Elevated BP. 4 L satting at 92%. WBC 7.2 Hgb 13.9 platelets 142 potassium 3.4 PHYSICAL EXAM: VITAL SIGNS: Reviewed. GENERAL: Well-developed in no acute distress. ABDOMEN: Soft. Nondistended. Nontender. NEUROLOGIC: Alert and oriented. Cranial nerves II through XII grossly intact. ASSESSMENT: 1. Gastric outlet obstruction 2. Large hiatal hernia 3. Abdominal pain with nausea and vomiting PLAN: -Patient scheduled for laparoscopic repair of paraesophageal hiatal hernia today with Dr. Coulter Physician Science Technicians note has been reviewed by physician. Signing provider agrees with the documented findings, assessment, and plan of care. Objective - Vital Signs Vital signs: Vital Signs Temp 97.4 F L 01/03/24 11:58 Pulse 68 01/03/24 11:58 Resp 20 01/03/24 11:58 BP 175/72 01/03/24 12:36 Pulse Ox 92 L 01/03/24 11:58 FiO2 Intake & Output 01/02/24 01/03/24 01/03/24 18:59 06:59 18:59 Intake Total 1235 10 Output Total 1050 250 Balance 185 -250 10 Intake: IV 15 10 Invasive Line 2 15 10 Intake, IV Titration 1100 Amount Piperacillin-Tazobactam 3 200 .375 gm In Sodium Chloride 0.9% 100 ml @ 25 mls/hr IVPB Q8HR YES[facility] Rx# :[id number] Sodium Chloride 0.9% 1, 900 000 ml @ 75 mls/hr IV . [id number] YESY Rx#:[id number] Other 120 Output: Gastric Drainage 450 Urine 500 250 Other 100 Other: Voiding Method Urinal Urinal Urinal # Voids 2 2 # Bowel Movements 1 1 - Labs CBC & Chem 7: 01/03/24 09:56 01/03/24 09:56 Labs: Abnormal Lab Results - Last 24 Hours (Table) 01/02/24 01/03/24 01/03/24 Range/Units 19:58 09:56 09:56 Plt Count 142 L (150-450) k/uL Lymphocytes # 0.9 L (1.0-4.8) k/uL Sodium 136 L (137-145) mmol/L Potassium 3.4 L (3.5-5.1) mmol/L POC Glucose (mg/dL) 125 H (70-110) mg/dL
[2024-01-03] MEDS: POTASSIUM CHLORIDE 10 MEQ in WATER FOR INJECTION 1 100ML.BAG IVPB SCH (12:57)
[2024-01-03] MEDS: ENALAPRILAT 1.25 MG/ML 1 ML VIAL IVP PRN (12:57)
[2024-01-03 13:40] LABS: Glucose,Whole Blood 82 mg/dL (70-110)
[2024-01-03] MEDS: LACTATED RINGERS 1,000 ML IV SCH (13:45)
--- NOTE | 2024-01-03 14:12 | P.PN ---
Progress Note - Text Progress Note Date: 01/03/24 the patient feels better today. He is scheduled for repair of his large paraesophageal hiatal hernia. The patient had a gastric outlet obstruction initially due to gastric volvulus within the hiatal hernia. This resolved with nasogastric decompression. The patient is an extremely high risk of having this happen again. This will most likely happen again once he starts eating. The patient will undergo laparoscopic repair of paraesophageal hiatal hernia due to gastric volvulus today. The patient and his daughter are in agreement. All her questions were answered.
[2024-01-03] MEDS: POTASSIUM CHLORIDE ER 20 MEQ TAB.ER PO STA (14:15)
--- NOTE | 2024-01-03 14:35 | P.PN ---
Subjective Progress Note Date: 01/03/24 HISTORY OF PRESENT ILLNESS: This is a 88-year-old male with a past medical history significant for hype rtension, hyperlipidemia, diabetes, and hypothyroidism. Patient does not follow with a cut pressman. The patient states he follows at the [facility] for his health care. We have been asked to see the patient in consultation for elevated troponins. Patient examined at the bedside. Patient presented to the hospital with a chief complaint of nausea and vomiting. Patient states he was not passing gas or having bowel movements at home. He states this is the first time he has had any type of bowel issues like this and he initially thought he had the flu. The patient was found to have a gastric outlet obstruction and had an NG tube placed. He does report passing flatus this morning. Patient reports he has a history of COPD and does report shortness of breath with exertion. He does use oxygen at home. He denies waking up at night short of breath. He denies any dizziness or lightheadedness. He denies any chest pain or pressure. Patient is a former cigarette smoker. He denies any known history of CAD. DIAGNOSTICS: - EKG reveals sinus mechanism with fusion beats. PVCs. T wave inversions inferiorly. - Chest xray NG tube within the stomach. Marked COPD. Cardiomegaly without overt CHF. - Laboratory data: WBC 10.4. Hemoglobin 14.5. Platelet count 184. Sodium 142. Potassium 3.1. BUN 50. Creatinine 1.42. Magnesium 2.1. Troponin 0.427. 0.390. 0.426. - Current home cardiac medications include aspirin 81 mg at night, simvastatin 40 mg at night, atenolol 25 mg twice a day - No previous echocardiogram, stress test, or cardiac catheterization available in EMR for review 01/01/2024 Patient examined this morning. Patient is sitting up in the chair. Patient's NG tube did fall out this morning just prior to examination. Patient denies any abdominal pain. Patient states he is passing flatus. He denies having a bowel movement. He denies any chest pain or pressure. He denies any shortness of breath. Echocardiogram completed revealing hyperdynamic left ventricle with e jection fraction 80 to 85%, mid cavitary gradient 69 mmHg, 127 mmHg post ectopic beat, no obvious regional wall motion abnormalities, severely elevated right ventricular systolic pressure, RVSP 68.7, mild TR, mild MS, mild MR 01/02/2024 Patient examined this morning at the bedside. Patient denies chest pain or pressure. He denies shortness of breath. He continues to have NG tube to low intermittent suction. He reports passing flatus this morning but no bowel movement. Vital signs are stable. Patient did have 1 isolated high blood pressure reading this morning. Previous blood pressure 128/72. 01/02 Patient has had continued elevated blood pressure readings. He is n.p.o. as he is scheduled for laparoscopic paraesophageal hiatal hernia repair today with Dr. Coulter. Ordered Vasotec IV for blood pressure control but shortly after receiving this, patient complained of feeling that the room was upside down. Was also receiving IV potassium at the same time. Blood pressure is still e levated. Case discussed in detail with the patient and his niece at the bedside. Patient is at high risk for complications during the surgery and would not recommend moving forward with the surgery that is planned. Recommending that the patient discuss options with the general surgery. PHYSICAL EXAM: VITAL SIGNS: Reviewed. GENERAL: Well-developed in no acute distress. HEENT: Head is normocephalic. Pupils are equal, round. Sclerae anicteric. Mucous membranes of the mouth are moist. Neck supple. No JVD or thyromegaly LUNGS: Respirations even and unlabored. Lungs essentially clear to auscultation bilaterally. HEART: Regular rate and rhythm. S1 and S2 heard. Systolic murmur noted ABDOMEN: Soft. Nondistended. Nontender. EXTREMITIES: Normal range of motion. No clubbing or cyanosis. Peripheral pulses intact. No lower extremity edema NEUROLOGIC: Awake and alert. Oriented x 3. ASSESSMENT: Gastric outlet obstruction Acute kidney injury Abnormal troponins, flat, likely secondary to VALENTE, however high probability for underlying CAD Hypertension Hyperlipidemia Diabetes Hypothyroidism Hypokalemia Severe pulmonary hypertension Hyperdynamic LV with ejection fraction 80 to 85% with mid cavitary gradient 69 mmHg Preoperative cardiovascular evaluation PLAN: Continue current cardiac medications Continue telemetry monitoring Atenolol 50 mg in the morning and 25 mg at night to help prevent tachycardia as tachycardia would result in elevation of mid cavitary gradient. No plans for invasive cardiac workup at this time Patient is at high risk for complications during the surgery. Discussed case with internal medicine and surgery team, as well as discussion with family and niece. Patient with NSTEMI and COPD with severe pulmonary hypertension. Per discussion with general surgery, concern of volvulus and gastric outlet obstruction that could worsen. High risk with surgery and all questions answered for family. Discussed with surgeon, if benefits of surgery felt to outweigh risks then would proceed. Nurse practitioner note has been reviewed by physician. Signing provider agrees with the documented findings, assessment, and plan of care documented by FIRE CHIEF'S AIDE as a scribe. Objective - Vital Signs Vital signs: Vital Signs Temp 97.4 F L 01/03/24 11:58 Pulse 86 01/03/24 14:21 Resp 20 01/03/24 11:58 BP 175/85 01/03/24 14:21 Pulse Ox 96 01/03/24 13:36 FiO2 Intake & Output 01/02/24 01/03/24 01/03/24 18:59 06:59 18:59 Intake Total 1235 10 Output Total 1050 250 Balance 185 -250 10 Intake: IV 15 10 Invasive Line 2 15 10 Intake, IV Titration 1100 Amount Piperacillin-Tazobactam 3 200 .375 gm In Sodium Chloride 0.9% 100 ml @ 25 mls/hr IVPB Q8HR [facility] Rx# :[id number] Sodium Chloride 0.9% 1, 900 000 ml @ 75 mls/hr IV . [id number] [facility] Rx#:[id number] Other 120 Output: Gastric Drainage 450 Urine 500 250 Other 100 Other: Voiding Method Urinal Urinal Urinal # Voids 2 2 # Bowel Movements 1 1 - Labs CBC & Chem 7: 01/03/24 09:56 01/03/24 09:56 Labs: Abnormal Lab Results - Last 24 Hours (Table) 01/02/24 01/03/24 01/03/24 Range/Units 19:58 09:56 09:56 Plt Count 142 L (150-450) k/uL Lymphocytes # 0.9 L (1.0-4.8) k/uL Sodium 136 L (137-145) mmol/L Potassium 3.4 L (3.5-5.1) mmol/L POC Glucose (mg/dL) 125 H (70-110) mg/dL
[2024-01-03] MEDS: DEXAMETHASONE SOD PHOSPHATE 4 MG/ML 1 ML VIAL IV ONE (15:23)
[2024-01-03] MEDS: ONDANSETRON 4 MG/2 ML VIAL IVP ONE (15:24)
[2024-01-03 16:18] LABS: Glucose,Whole Blood 81 mg/dL (70-110)
[2024-01-03] MEDS: lisinopriL 10 MG TAB PO SCH (17:34)
[2024-01-03] MEDS ORDERED: Phosphorus Replacement Protoco 1 EACH MISC MISCELLANE PRN (17:51)
[2024-01-03] MEDS: POTAS-SOD-PHOS 278-164-250 MG 1 EACH PACKET PO ONE (18:43)
[2024-01-03 20:50] LABS: Glucose,Whole Blood 122 mg/dL (70-110)
[2024-01-04] MEDS: hydrALAZINE HCL 25 MG TAB PO PRN (04:32)
[2024-01-04 06:14] LABS: Glucose,Whole Blood 101 mg/dL (70-110)
[2024-01-04] MEDS ORDERED: HYDROmorphone 0.5 MG/0.5 ML SYRINGE IVP PRN (07:00)
[2024-01-04 08:19] LABS: Basophils % (A) 1 %; Eosinophils # (A) 0.6 k/uL (0-0.7); Eosinophils % (A) 7 %; HCT 45.5 % (39.0-53.0); HGB 14.6 gm/dL (13.0-17.5); Lymphocytes # (A) 1.1 k/uL (1.0-4.8); Lymphocytes % (A) 13 %; MCH 29.4 pg (25.0-35.0); MCHC 32.1 g/dL (31.0-37.0); MCV 91.4 fL (80.0-100.0); Mean Platelet Volume 8.1; Monocytes # (A) 0.7 k/uL (0-1.0); Monocytes % (A) 8 %; Neutrophils # (A) 5.7 k/uL (1.3-7.7); Neutrophils % (A) 70 %; Platelet Count 180 k/uL (150-450); RBC 4.98 m/uL (4.30-5.90); RDW 14.6 % (11.5-15.5); WBC 8.2 k/uL (3.8-10.6)
[2024-01-04 08:34] LABS: ALT 24 U/L (4-49); AST 41 U/L (17-59); African American GFR (CKD) >90 (>60 ml/min/1.73 sqM); Albumin 3.3 g/dL (3.5-5.0); Alkaline Phosphatase 81 U/L (38-126); Anion Gap 3 mmol/L; Bilirubin, Delta 0.5 mg/dL (0.0-0.2); Bilirubin,Unconjugated 1.6 mg/dL (0.0-1.1); Blood Urea Nitrogen 15 mg/dL (9-20); Calcium 8.7 mg/dL (8.4-10.2); Carbon Dioxide 33 mmol/L (22-30); Chloride 100 mmol/L (98-107); Glucose 103 mg/dL (74-99); Magnesium 1.6 mg/dL (1.6-2.3); Non-African American GFR(CKD) 87 (>60 ml/min/1.73 sqM); Phosphorus 2.4 mg/dL (2.5-4.5); Potassium 3.7 mmol/L (3.5-5.1); Sodium 136 mmol/L (137-145); Total Bilirubin 2.1 mg/dL (0.2-1.3); Total Protein 6.1 g/dL (6.3-8.2)
[2024-01-04 12:13] LABS: Glucose,Whole Blood 127 mg/dL (70-110)
--- NOTE | 2024-01-04 12:44 | P.PN ---
Subjective Progress Note Date: 01/04/24 CHIEF COMPLAINT: Gastric outlet obstruction HISTORY OF PRESENT ILLNESS: Patient denies any abdominal pain. He did tolerate a regular diet. He is having bowel movements. He has been up and ambulating. Afebrile. WBC 8.2 PHYSICAL EXAM: VITAL SIGNS: Reviewed. GENERAL: Well-developed in no acute distress. ABDOMEN: Soft. Nondistended. Nontender. NEUROLOGIC: Alert and oriented. Cranial nerves II through XII grossly intact. ASSESSMENT: 1. Gastric volvulus 2. Large hiatal hernia 3. Gastric outlet obstruction resolved PLAN: -Patient tolerated regular diet. Patient can be discharged from surgical standpoint -Recommend patient follow-up with in the office in 1 week -No surgical intervention planned during this admission -Patient is a high risk surgical candidate Physician Engraver Machine note has been reviewed by physician. Signing provider agrees with the documented findings, assessment, and plan of care. Objective - Vital Signs Vital signs: Vital Signs Temp 97.3 F L 01/04/24 12:11 Pulse 72 01/04/24 12:11 Resp 18 01/04/24 12:11 BP 136/80 01/04/24 12:11 Pulse Ox 98 01/04/24 12:11 FiO2 Intake & Output 01/03/24 01/04/24 01/04/24 18:59 06:59 18:59 Intake Total 250 128 Balance 250 128 Intake: IV 10 10 Invasive Line 2 10 Invasive Line 3 10 Oral 240 118 Other: Voiding Method Urinal Urinal Urinal # Voids 2 1 # Bowel Movements 1 1 1 - Labs CBC & Chem 7: 01/04/24 07:37 01/04/24 07:37 Labs: Abnormal Lab Results - Last 24 Hours (Table) 01/03/24 01/03/24 01/04/24 Range/Units 09:56 20:28 07:37 Sodium 136 L (137-145) mmol/L Carbon Dioxide 33 H (22-30) mmol/L Creatinine 0.64 L (0.66-1.25) mg/dL Glucose 103 H (74-99) mg/dL POC Glucose (mg/dL) 122 H (70-110) mg/dL Phosphorus 2.4 L 2.4 L (2.5-4.5) mg/dL Total Bilirubin 2.1 H (0.2-1.3) mg/dL Unconjugated Bilirubin 1.6 H (0.0-1.1) mg/dL Delta Bilirubin 0.5 H (0.0-0.2) mg/dL Total Protein 6.1 L (6.3-8.2) g/dL Albumin 3.3 L (3.5-5.0) g/dL 01/04/24 Range/Units 12:11 Sodium (137-145) mmol/L Carbon Dioxide (22-30) mmol/L Creatinine (0.66-1.25) mg/dL Glucose (74-99) mg/dL POC Glucose (mg/dL) 127 H (70-110) mg/dL Phosphorus (2.5-4.5) mg/dL Total Bilirubin (0.2-1.3) mg/dL Unconjugated Bilirubin (0.0-1.1) mg/dL Delta Bilirubin (0.0-0.2) mg/dL Total Protein (6.3-8.2) g/dL Albumin (3.5-5.0) g/dL
--- NOTE | 2024-01-04 15:38 | P.PN ---
Subjective Progress Note Date: 01/04/24 HISTORY OF PRESENT ILLNESS: This is a 88-year-old male with a past medical history significant for hype rtension, hyperlipidemia, diabetes, and hypothyroidism. Patient does not follow with a turnaround engineer. The patient states he follows at the [facility] for his health care. We have been asked to see the patient in consultation for elevated troponins. Patient examined at the bedside. Patient presented to the hospital with a chief complaint of nausea and vomiting. Patient states he was not passing gas or having bowel movements at home. He states this is the first time he has had any type of bowel issues like this and he initially thought he had the flu. The patient was found to have a gastric outlet obstruction and had an NG tube placed. He does report passing flatus this morning. Patient reports he has a history of COPD and does report shortness of breath with exertion. He does use oxygen at home. He denies waking up at night short of breath. He denies any dizziness or lightheadedness. He denies any chest pain or pressure. Patient is a former cigarette smoker. He denies any known history of CAD. DIAGNOSTICS: - EKG reveals sinus mechanism with fusion beats. PVCs. T wave inversions inferiorly. - Chest xray NG tube within the stomach. Marked COPD. Cardiomegaly without overt CHF. - Laboratory data: WBC 10.4. Hemoglobin 14.5. Platelet count 184. Sodium 142. Potassium 3.1. BUN 50. Creatinine 1.42. Magnesium 2.1. Troponin 0.427. 0.390. 0.426. - Current home cardiac medications include aspirin 81 mg at night, simvastatin 40 mg at night, atenolol 25 mg twice a day - No previous echocardiogram, stress test, or cardiac catheterization available in EMR for review 01/01/2024 Patient examined this morning. Patient is sitting up in the chair. Patient's NG tube did fall out this morning just prior to examination. Patient denies any abdominal pain. Patient states he is passing flatus. He denies having a bowel movement. He denies any chest pain or pressure. He denies any shortness of breath. Echocardiogram completed revealing hyperdynamic left ventricle with e jection fraction 80 to 85%, mid cavitary gradient 69 mmHg, 127 mmHg post ectopic beat, no obvious regional wall motion abnormalities, severely elevated right ventricular systolic pressure, RVSP 68.7, mild TR, mild MS, mild MR 01/02/2024 Patient examined this morning at the bedside. Patient denies chest pain or pressure. He denies shortness of breath. He continues to have NG tube to low intermittent suction. He reports passing flatus this morning but no bowel movement. Vital signs are stable. Patient did have 1 isolated high blood pressure reading this morning. Previous blood pressure 128/72. 01/02 Patient has had continued elevated blood pressure readings. He is n.p.o. as he is scheduled for laparoscopic paraesophageal hiatal hernia repair today with Dr. Coulter. Ordered Vasotec IV for blood pressure control but shortly after receiving this, patient complained of feeling that the room was upside down. Was also receiving IV potassium at the same time. Blood pressure is still e levated. Case discussed in detail with the patient and his niece at the bedside. Patient is at high risk for complications during the surgery and would not recommend moving forward with the surgery that is planned. Recommending that the patient discuss options with the general surgery. 01/03 Patient states that he has now eaten 3 meals and has not had any problems with his bowels no nausea or vomiting. No abdominal pain. He is still having some intermittent brief visual hallucinations. He has been maintained on aspirin, beta-rome, hydralazine and lisinopril. PHYSICAL EXAM: VITAL SIGNS: Reviewed. GENERAL: Well-developed in no acute distress. HEENT: Head is normocephalic. Pupils are equal, round. Sclerae anicteric. Mucous membranes of the mouth are moist. Neck supple. No JVD or thyromegaly LUNGS: Respirations even and unlabored. Lungs essentially clear to auscultation bilaterally. HEART: Regular rate and rhythm. S1 and S2 heard. Systolic murmur noted ABDOMEN: Soft. Nondistended. Nontender. EXTREMITIES: No clubbing or cyanosis. Peripheral pulses intact. No lower extremity edema NEUROLOGIC: Awake and alert. Oriented x 3. ASSESSMENT: Gastric outlet obstruction Acute kidney injury Abnormal troponins, flat, likely secondary to VALENTE, however high probability for underlying CAD Hypertension Hyperlipidemia Diabetes Hypothyroidism Hypokalemia Severe pulmonary hypertension Hyperdynamic LV with ejection fraction 80 to 85% with mid cavitary gradient 69 mmHg PLAN: Continue current cardiac medications Continue telemetry monitoring No medication changes made today Cardiology will sign off this case and follow on an as-needed basis. Please reconsult for any new concerns. [facility]. Nurse practitioner note has been reviewed by physician. Signing provider agrees with the documented findings, assessment, and plan of care documented by WIRE DRAWER as a scribe. Objective - Vital Signs Vital signs: Vital Signs Temp 97.3 F L 01/04/24 12:11 Pulse 72 01/04/24 12:11 Resp 18 01/04/24 12:11 BP 136/80 01/04/24 12:11 Pulse Ox 98 01/04/24 12:11 FiO2 Intake & Output 01/03/24 01/04/24 01/04/24 18:59 06:59 18:59 Intake Total 250 128 Balance 250 128 Intake: IV 10 10 Invasive Line 2 10 Invasive Line 3 10 Oral 240 118 Other: Voiding Method Urinal Urinal Urinal # Voids 2 1 # Bowel Movements 1 1 1 - Labs CBC & Chem 7: 01/04/24 07:37 01/04/24 07:37 Labs: Abnormal Lab Results - Last 24 Hours (Table) 01/03/24 01/03/24 01/04/24 Range/Units 09:56 20:28 07:37 Sodium 136 L (137-145) mmol/L Carbon Dioxide 33 H (22-30) mmol/L Creatinine 0.64 L (0.66-1.25) mg/dL Glucose 103 H (74-99) mg/dL POC Glucose (mg/dL) 122 H (70-110) mg/dL Phosphorus 2.4 L 2.4 L (2.5-4.5) mg/dL Total Bilirubin 2.1 H (0.2-1.3) mg/dL Unconjugated Bilirubin 1.6 H (0.0-1.1) mg/dL Delta Bilirubin 0.5 H (0.0-0.2) mg/dL Total Protein 6.1 L (6.3-8.2) g/dL Albumin 3.3 L (3.5-5.0) g/dL 01/04/24 Range/Units 12:11 Sodium (137-145) mmol/L Carbon Dioxide (22-30) mmol/L Creatinine (0.66-1.25) mg/dL Glucose (74-99) mg/dL POC Glucose (mg/dL) 127 H (70-110) mg/dL Phosphorus (2.5-4.5) mg/dL Total Bilirubin (0.2-1.3) mg/dL Unconjugated Bilirubin (0.0-1.1) mg/dL Delta Bilirubin (0.0-0.2) mg/dL Total Protein (6.3-8.2) g/dL Albumin (3.5-5.0) g/dL
[2024-01-04 16:39] LABS: Glucose,Whole Blood 108 mg/dL (70-110)
--- NOTE | 2024-01-04 16:55 | P.PN ---
Subjective Progress Note Date: 01/04/24 (delayed charting seen at 0945) Patient is a 88-year-old male with known hypertension, dyslipidemia, COPD on chronic O2 at 4 L, and multiple other comorbid conditions who initially presented to the ER with complaints of nausea and vomiting. Laboratory analysis in the emergency department was consistent with elevated white blood cell count of 13.6, and acute kidney injury. As well as mildly elevated troponins at 0.427. CT abdomen and pelvis demonstrated distended gastric lumen consistent wi th gastric outlet obstruction associated with hiatal hernia., GERD, end-stage left hip osteoarthritis, severe degeneration throughout the spine. Patient was admitted for gastric outlet obstruction and elevated troponins. He was seen by surgery. Cardiology was consulted. He was admitted and had an NG tube placed. Troponins were trended and remained flat not consistent with ACS. Echocardiogram was obtained which demonstrated hyperdynamic left ventricle with left ventricular ejection fraction of 80 to 85% associated with severe pulmonary hypertension. Initially surgery recommended laparoscopic repair of paraesophageal hiatal hernia with gastric volvulus.. Repeat CT scan of the abdomen and pelvis on 01/01 demonstrated large hiatal hernia with intrathoracic stomach and resolution of gastric outlet. Patient was determined to be a high risk surgical candidate and ultimately after much discussion elected for close outpatient follow-up with monitoring. Patient seen and examined at bedside. He reports he had some hallucinations last night and felt slightly off balance today. He denies any abdominal pain. He has tolerated his diet well. He denies any difficulty with constipation. He has no other complaints at this time. Vital signs reviewed General: Nontoxic, no distress, appears at stated age Cardiovascular: S1S2 reg, no murmur Lungs: CTA bilateral, no rhonchi, no rales, no accessory muscle use Abdominal: Soft, nontender to palpation, no guarding Ext: No gross muscle atrophy, no edema b/l lower extremities, no contractures Neuro: CN II-XI grossly intact, no focal neuro deficits Psych: Alert, oriented, appropriate affect defaults Assessment/Plan: Gastric outlet obstruction with paraesophageal hiatal hernia -Case discussed with surgical physician assistant department manager. Patient is okay for discharge home with outpatient follow-up -continue with regular diet Elevated troponin, not consistent with ACS Ventricular ectopy Severe pulmonary hypertension Hyper dynamic left ventricle HTN HLD -Cardiology note reviewed: Continue current cardiac medications, we will follow- up on a as needed basis, [facility] 2 weeks -Aspirin 81 mg daily -Atenolol 50 mg in the morning and 25 mg at night, Lipitor 80 mg, lisinopril 10 mg daily VALENTE, resolved, hypokalemia resolved Chronic: COPD with chronic respiratory failure, not in exacerbation Hypothyroidism Imaging: None new Data Review: Labs reviewed from today include CBC and CMP which are remarkable for bilirubin 1.6, sodium 136 DVT prophylaxis: SCDs Anticipated discharge date: Home with home health in a.m. This dictation was prepared using [employer] voice recognition software. Though every attempt is made to correct errors during dictation some may still exist. Objective - Vital Signs Vital signs: Vital Signs Temp 97.5 F L 01/04/24 15:50 Pulse 83 01/04/24 15:50 Resp 18 01/04/24 15:50 BP 140/72 01/04/24 15:50 Pulse Ox 98 01/04/24 15:50 FiO2 Intake & Output 01/03/24 01/04/24 01/04/24 18:59 06:59 18:59 Intake Total 250 368 Balance 250 368 Intake: IV 10 10 Invasive Line 2 10 Invasive Line 3 10 Oral 240 358 Other: Voiding Method Urinal Urinal Urinal # Voids 2 1 # Bowel Movements 1 1 1 - Labs CBC & Chem 7: 01/04/24 07:37 01/04/24 07:37 Labs: Abnormal Lab Results - Last 24 Hours (Table) 01/03/24 01/03/24 01/04/24 Range/Units 09:56 20:28 07:37 Sodium 136 L (137-145) mmol/L Carbon Dioxide 33 H (22-30) mmol/L Creatinine 0.64 L (0.66-1.25) mg/dL Glucose 103 H (74-99) mg/dL POC Glucose (mg/dL) 122 H (70-110) mg/dL Phosphorus 2.4 L 2.4 L (2.5-4.5) mg/dL Total Bilirubin 2.1 H (0.2-1.3) mg/dL Unconjugated Bilirubin 1.6 H (0.0-1.1) mg/dL Delta Bilirubin 0.5 H (0.0-0.2) mg/dL Total Protein 6.1 L (6.3-8.2) g/dL Albumin 3.3 L (3.5-5.0) g/dL 01/04/24 Range/Units 12:11 Sodium (137-145) mmol/L Carbon Dioxide (22-30) mmol/L Creatinine (0.66-1.25) mg/dL Glucose (74-99) mg/dL POC Glucose (mg/dL) 127 H (70-110) mg/dL Phosphorus (2.5-4.5) mg/dL Total Bilirubin (0.2-1.3) mg/dL Unconjugated Bilirubin (0.0-1.1) mg/dL Delta Bilirubin (0.0-0.2) mg/dL Total Protein (6.3-8.2) g/dL Albumin (3.5-5.0) g/dL
[2024-01-04 20:24] LABS: Glucose,Whole Blood 111 mg/dL (70-110)
[2024-01-05 06:25] LABS: Glucose,Whole Blood 114 mg/dL (70-110)
[2024-01-05 09:05] VITALS: RESP 20
--- NOTE | 2024-01-05 10:27 | P.PN ---
Subjective Progress Note Date: 01/05/24 CHIEF COMPLAINT: Gastric outlet obstruction HISTORY OF PRESENT ILLNESS: Patient denies any abdominal pain. He did tolerate a regular diet. He is having flatus and bowel movements. Discharge held yesterday due to him waiting for prescription for a walker. PHYSICAL EXAM: VITAL SIGNS: Reviewed. GENERAL: Well-developed in no acute distress. ABDOMEN: Soft. Nondistended. Nontender. NEUROLOGIC: Alert and oriented. Cranial nerves II through XII grossly intact. ASSESSMENT: 1. Gastric volvulus 2. Large hiatal hernia 3. Gastric outlet obstruction resolved PLAN: -Patient tolerated regular diet. Patient can be discharged from surgical standpoint -Recommend patient follow-up with in the office in 1 week -No surgical intervention planned during this admission -Patient is a high risk surgical candidate Physician Automobile Glass Technician note has been reviewed by physician. Signing provider agrees with the documented findings, assessment, and plan of care. Objective - Vital Signs Vital signs: Vital Signs Temp 96.6 F L 01/05/24 08:44 Pulse 74 01/05/24 08:44 Resp 20 01/05/24 08:44 BP 131/75 01/05/24 08:44 Pulse Ox 99 01/05/24 08:44 FiO2 Intake & Output 01/04/24 01/05/24 01/05/24 18:59 06:59 18:59 Intake Total 486 128 Output Total 100 150 Balance 386 -150 128 Intake: IV 10 10 Invasive Line 3 10 10 Oral 476 118 Output: Urine 100 150 Other: Voiding Method Urinal Toilet Urinal # Voids 1 1 # Bowel Movements 1 - Labs CBC & Chem 7: 01/04/24 07:37 01/04/24 07:37 Labs: Abnormal Lab Results - Last 24 Hours (Table) 01/04/24 01/04/24 01/05/24 Range/Units 12:11 20:12 06:23 POC Glucose (mg/dL) 127 H 111 H 114 H (70-110) mg/dL
[2024-01-05 11:14] LABS: HCT 40.2 % (39.0-53.0); HGB 12.3 gm/dL (13.0-17.5); MCH 28.2 pg (25.0-35.0); MCHC 30.6 g/dL (31.0-37.0); MCV 92.2 fL (80.0-100.0); Mean Platelet Volume 8.5; Platelet Count 167 k/uL (150-450); RBC 4.36 m/uL (4.30-5.90); RDW 14.3 % (11.5-15.5); WBC 6.8 k/uL (3.8-10.6)
[2024-01-05 11:26] LABS: ALT 23 U/L (4-49); AST 38 U/L (17-59); African American GFR (CKD) >90 (>60 ml/min/1.73 sqM); Albumin 2.9 g/dL (3.5-5.0); Alkaline Phosphatase 83 U/L (38-126); Anion Gap 3 mmol/L; Blood Urea Nitrogen 25 mg/dL (9-20); Calcium 8.3 mg/dL (8.4-10.2); Carbon Dioxide 32 mmol/L (22-30); Chloride 99 mmol/L (98-107); Glucose 92 mg/dL (74-99); Magnesium 1.6 mg/dL (1.6-2.3); Non-African American GFR(CKD) 85 (>60 ml/min/1.73 sqM); Phosphorus 2.6 mg/dL (2.5-4.5); Potassium 3.4 mmol/L (3.5-5.1); Sodium 134 mmol/L (137-145); Total Bilirubin 1.3 mg/dL (0.2-1.3); Total Protein 5.4 g/dL (6.3-8.2)
[2024-01-05 11:52] LABS: Glucose,Whole Blood 101 mg/dL (70-110)
[2024-01-05 12:10] VITALS: BP 138/85; PULSE 68; TEMP 97.3
--- NOTE | 2024-01-05 13:07 | P.DS ---
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 Laboratory analysis in the emergency department was consistent with elevated white blood cell count of 13.6, and acute kidney injury. As well as mildly elevated troponins at 0.427. CT abdomen and pelvis demonstrated distended gastric lumen consistent with gastric outlet obstruction associated with hiatal hernia., GERD, end-stage left hip osteoarthritis, severe degeneration throughout the spine. Patient was admitted for gastric outlet obstruction and elevated troponins. He was seen by surgery. Cardiology was consulted. He was admitted and had an NG tube placed. Troponins were trended and remained flat not consistent with ACS. Echocard iogram was obtained which demonstrated hyperdynamic left ventricle with left ventricular ejection fraction of 80 to 85% associated with severe pulmonary hypertension. Cardiology felt that elevated troponins were due to acute kidney injury and not acute coronary syndrome. Initially surgery recommended laparoscopic repair of paraesophageal hiatal hernia with gastric volvulus. Repeat CT scan of the abdomen and pelvis on 01/01 demonstrated large hiatal hernia with intrathoracic stomach and resolution of gastric outlet. His NG tube was removed and he was tolerating a diet. Patient was determined to be a high risk surgical candidate and ultimately after much discussion elected for close outpatient follow-up with monitoring. Follow-up: Follow-up with lip of shank cutter from ID in 2 weeks, encourage oral fluid intake, small frequent meals with chewing thoroughly, medication changes include addition of lisinopril 10 mg daily, omeprazole 20 mg twice daily. Atenolol was increased to 50 mg in the morning and 25 mg at night. He should have a repeat basic metabolic profile obtained in 3-5 days to monitor for VALENTE. Patient was noted to have gait instability and will require a walker to improve his ambulatory status Patient seen and examined at bedside. Doing well. Tolerating a diet. Had a bowel movement yesterday. Feeling comfortable going home. Still having some owning at night but it is resolved during the day. I explained to him that this should resolve with going home. Vital signs reviewed and stable. General: Nontoxic, no distress, appears at stated age Cardiovascular: S1S2 reg, no murmur, positive posterior tibial pulse bilateral, Lungs: CTA bilateral, no rhonchi, no rales, no accessory muscle use Abdominal: Soft, nontender to palpation, no guarding, no appreciable organomegaly Ext: No gross muscle atrophy, no edema b/l lower extremities, no contractures Neuro: CN II-XI grossly intact, no focal neuro deficits Psych: Alert, oriented, appropriate affect A total of 35 minutes of time were spent preparing this complex discharge summary. Patient was discharged on 01/05/24. This dictation was prepared using [employer] voice recognition software. Though every attempt is made to correct errors during dictation some may still exist. Patient Condition at Discharge: Stable Plan - Discharge Summary Discharge Rx Participant: No New Discharge Prescriptions: New RX: lisinopriL [Zestril] 10 mg PO DAILY #30 tab RX: Omeprazole 20 mg PO BID #60 tab Continue RX: Tiotropium 2.5 Mcg/Puff [Spiriva Respimat 2.5 Mcg] 2 puff INHALATION RT- DAILY RX: Fluticasone Propion/Salmeterol [Fluticasone-Salmeterol 250-50] 1 puff INHALATION RT-BID RX: Levothyroxine Sodium [Synthroid] 25 mcg PO DAILY RX: Aspirin EC [Ecotrin Low Dose] 81 mg PO HS RX: Albuterol Sulfate [Albuterol Sulfate Hfa] 1 puff INHALATION RT-QID PRN PRN Reason: Shortness Of Breath RX: Simvastatin [Zocor] 40 mg PO HS Changed RX: Niacin [Slo-Niacin] 500 mg PO DAILY #0 RX: atenoloL [Tenormin] See Rx Instructions .ROUTE .COMPLEX #90 tab Discontinued Meloxicam [Mobic] 15 mg PO DAILY Discharge Medication List RX: Albuterol Sulfate [Albuterol Sulfate Hfa] 1 puff INHALATION RT-QID PRN 12/30/23 [History] RX: Aspirin EC [Ecotrin Low Dose] 81 mg PO HS 12/30/23 [History] RX: Fluticasone Propion/Salmeterol [Fluticasone-Salmeterol 250-50] 1 puff INH ALATION RT-BID 12/30/23 [History] RX: Levothyroxine Sodium [Synthroid] 25 mcg PO DAILY 12/30/23 [History] RX: Simvastatin [Zocor] 40 mg PO HS 12/30/23 [History] RX: Tiotropium 2.5 Mcg/Puff [Spiriva Respimat 2.5 Mcg] 2 puff INHALATION RT- DAILY 12/30/23 [History] RX: Niacin [Slo-Niacin] 500 mg PO DAILY #0 01/05/24 [Rx] RX: Omeprazole 20 mg PO BID #60 tab 01/05/24 [Rx] RX: atenoloL [Tenormin] See Rx Instructions .ROUTE .COMPLEX #90 tab 01/05/24 [Rx] RX: lisinopriL [Zestril] 10 mg PO DAILY #30 tab 01/05/24 [Rx] Follow up Appointment(s)/Referral(s): [facility],Clinic [Primary Care Provider] - 1-2 days Juanpablo Coulter MD [STAFF PHYSICIAN] - 1 Week Activity/Diet/Wound Care/Special Instructions: Activity: As tolerated Diet: Small frequent meals, small bites, chew thoroughly Special Instructions: Return with chest pain/pressure or vomiting Increase your fluid intake and consider supplementation with boost/ensure/premier protein Bring this to the [facility] as we suggest repeat blood work with electrolytes and renal function in 3-5 days Follow-up with lip of shank cutter from ID in 2 weeks Discharge Disposition: HOME WITH HOME HEALTH SERVICES
[2024-01-05] MEDS: POTASSIUM BICARBONATE/CIT AC 20 MEQ TABLET.EFF PO ONE (13:33)
--- NOTE | 2024-01-14 11:48 | CDI ---
Documentation Clarification Form Date: 01/14/2024 11:30:47 AM From: Camila Matamoros RN, CCDS Phone: [phone] Admit Date: 12/30/2023 02:36:00 PM Patient Name: Anshul Guzman Visit Number: [id number] Discharge Date: 01/05/2024 02:18:00 PM ATTENTION: The Clinical Documentation Specialists (CDI) and [employer] Coding Staff appreciate your assistance in clarifying documentation. Please respond to the clarification below the line at the bottom and electronically sign. The CDI & [employer] Coding staff will review the response and follow-up if needed. Please note: Queries are made part of the Legal Health Record. If you have any questions, please contact the author of this message via ITS. Dr. Jyotsna Salinas NSTEMI is documented in the ED note and the 01/02 Cardiology progress note. Additional clarification is requested. History/Risk Factors: HTN, HLD, former smoker, DM. Presented with nausea and vomiting. Found to have gastric outlet obstruction. Clinical Indicators: ED: "Dehydration, Gastric outlet obstruction, NSTEMI (non-ST elevated myocardial infarction)." 12/30 Cardiology consult: "Abnormal troponins, flat, likely secondary to VALENTE, however high probability for underlying CAD." 01/02 Cardiology: "Patient with NSTEMI and COPD with severe pulmonary hypertension." Discharge summary: "Cardiology felt that elevated troponins were due to acute kidney injury and not acute coronary syndrome." 12/29 Troponins: 0.427-0.390-0.426 12/29 EKG Results: SR, possible anterior myocardial infarction of indeterminate age, moderate T wave abnormality, consider inferior ischemia. Treatment: Telemetry monitoring; 1L 0.9 NS IV bolus x1 on 12/29 then 75mL/hr; Atenolol 25mg po BID 12/29-12/31; Atenolol 25mg QHS 12/31-01/03; Atenolol 50mg po daily 01/01-01/03 Please clarify the diagnosis: [x] NSTEMI ruled in [ ] NSTEMI ruled out [ ] Type II OK due to VALENTE [ ] Unable to determine [ ] Other Condition, please specify MTDD
== END 2024-01-05 14:18 | disposition home health service (06) | DRG 380 ==
LOC: EC 12:07 → 3SCARD 14:36
PROVIDERS: ADMIT Internal Medicine; ATTEND Internal Medicine
PROC: 0D9670Z Drainage of Stomach with Drainage Device, Via Natural or Artificial Opening (ICD-10-PCS; principal; 2023-12-30)
DX: K31.1 Adult hypertrophic pyloric stenosis (principal); I21.4 Non-ST elevation (NSTEMI) myocardial infarction; F03.92 Unspecified dementia, unspecified severity, with psychotic disturbance; F05 Delirium due to known physiological condition; J96.10 Chronic respiratory failure, unspecified whether with hypoxia or hypercapnia; N17.9 Acute kidney failure, unspecified; K44.9 Diaphragmatic hernia without obstruction or gangrene; E03.9 Hypothyroidism, unspecified; I27.20 Pulmonary hypertension, unspecified; E78.5 Hyperlipidemia, unspecified; E86.0 Dehydration; E87.6 Hypokalemia; J44.9 Chronic obstructive pulmonary disease, unspecified; K31.89 Other diseases of stomach and duodenum; R26.89 Other abnormalities of gait and mobility; R79.89 Other specified abnormal findings of blood chemistry; I10 Essential (primary) hypertension; I25.10 Atherosclerotic heart disease of native coronary artery without angina pectoris; I49.3 Ventricular premature depolarization; K21.9 Gastro-esophageal reflux disease without esophagitis; M16.12 Unilateral primary osteoarthritis, left hip; Z99.81 Dependence on supplemental oxygen; Z79.1 Long term (current) use of non-steroidal anti-inflammatories (NSAID); Z79.82 Long term (current) use of aspirin; Z79.890 Hormone replacement therapy; Z79.899 Other long term (current) drug therapy; Z87.891 Personal history of nicotine dependence; Z11.52 Encounter for screening for COVID-19; Z88.0 Allergy status to penicillin
CPT/HCPCS: 36415; 71045; 74018; 74176; 80048; 80053; 80076; 81001; 83690; 83735; 84100; 84484; 85025; 85027; 87636; 93005; 93306; 94640; 94760; 96361; 96374; 96375; 99291

== ENCOUNTER 2024-01-14 15:40 | Emergency (ER) | payer OTHER, MEDICARE ==
--- NOTE | 2024-01-14 16:08 | ED ---
Skin/Abscess/FB HPI - General Source: patient, RN notes reviewed Mode of arrival: wheelchair Limitations: no limitations <Estella Lisa - Last Filed: 01/14/24 16:07> - General Source: RN notes reviewed, old records reviewed Mode of arrival: wheelchair Limitations: no limitations - History of Present Illness MD complaint: rash, abscess/boil, lesion -: days(s) Location: LLE Severity: mild Severity scale (1-10): 2 Consistency: constant Improves with: none Worsens with: none Context: none <Bakari Eubanks - Last Filed: 01/25/24 14:14> - General Stated complaint: wound infection Time Seen by Provider: 01/14/24 16:07 - History of Present Illness Initial comments: Quick note: 88-year-old male presented to the ER with chief complaint of left calf wound. Patient has been placing triple antibiotic ointment and wrapping wound. does not know when drainage started. Patient denies any fevers or chills. (Estella Lisa) This is a 88-year-old male to the ER for evaluation of a left calf wound. Patient has been recently hospitalized and states he thinks he got this wound secondary to inactivity while lying in the hospital bed. Patient has some ten derness and abrasion to the left lower extremity with no significant drainage noted. Patient has no fevers, has been doing local wound care with no improvement (Bakari Eubanks) - Related Data Home Medications Medication Instructions Recorded Confirmed Albuterol Sulfate [Albuterol 1 puff INHALATION RT-QID PRN 12/30/23 01/16/24 Sulfate Hfa] Aspirin EC [Ecotrin Low Dose] 81 mg PO HS 12/30/23 01/16/24 Fluticasone Propion/Salmeterol 1 puff INHALATION RT-BID 12/30/23 01/16/24 [Fluticasone-Salmeterol 250-50] Levothyroxine Sodium [Synthroid] 25 mcg PO DAILY 12/30/23 01/16/24 Simvastatin [Zocor] 40 mg PO HS 12/30/23 01/16/24 Tiotropium 2.5 Mcg/Puff [Spiriva 2 puff INHALATION RT-DAILY 12/30/23 01/16/24 Respimat 2.5 Mcg] Mupirocin 2% Oint [Bactroban 2% 1 applic TOPICAL TID 01/16/24 01/16/24 Oint] atenoloL [Tenormin] 25 mg PO HS 01/16/24 01/16/24 atenoloL [Tenormin] 50 mg PO DAILY 01/16/24 01/16/24 Previous Rx's Medication Instructions Recorded Niacin [Slo-Niacin] 500 mg PO DAILY #0 01/05/24 Omeprazole 20 mg PO BID #60 tab 01/05/24 lisinopriL [Zestril] 10 mg PO DAILY #30 tab 01/05/24 HYDROcodone/APAP 5-325MG [[place] 1 tab PO Q6HR PRN 3 Days #12 tab 01/19/24 5-325] Allergies Allergy/AdvReac Type Severity Reaction Status Date / Time diazepam [From Valium] Allergy Anaphylaxis Verified 01/17/24 11:59 Review of Systems ROS Other: All systems not noted in ROS Statement are negative. <Estella Lisa - Last Filed: 01/14/24 16:07> ROS Other: All systems not noted in ROS Statement are negative. <Bakari Eubanks - Last Filed: 01/25/24 14:14> ROS Statement: Those systems with pertinent positive or pertinent negative responses have been documented in the HPI. Past Medical History Past Medical History: COPD, Hyperlipidemia, Hypertension Additional Past Medical History / Comment(s): hiatal hernia History of Any Multi-Drug Resistant Organisms: None Reported Past Surgical History: Appendectomy, Back Surgery, Joint Replacement Additional Past Surgical History / Comment(s): nic knees, bowel obstrution Past Anesthesia/Blood Transfusion Reactions: No Reported Reaction Past Psychological History: No Psychological Hx Reported Smoking Status: Former smoker Past Alcohol Use History: None Reported Past Drug Use History: None Reported <Estella Lisa - Last Filed: 01/14/24 16:07> General Exam <Estella Lisa - Last Filed: 01/14/24 16:07> General appearance: alert, in no apparent distress Head exam: Present: atraumatic, normocephalic, normal inspection Eye exam: Present: normal appearance, PERRL, EOMI. Absent: scleral icterus, conjunctival injection, periorbital swelling ENT exam: Present: normal exam, mucous membranes moist Neck exam: Present: normal inspection. Absent: tenderness, meningismus, lymphadenopathy Respiratory exam: Present: normal lung sounds bilaterally. Absent: respiratory distress, wheezes, rales, rhonchi, stridor Cardiovascular Exam: Present: regular rate, normal rhythm, normal heart sounds. Absent: systolic murmur, diastolic murmur, rubs, gallop, clicks GI/Abdominal exam: Present: soft, normal bowel sounds. Absent: distended, tenderness, guarding, rebound, rigid Extremities exam: Present: normal inspection, full ROM, normal capillary refill. Absent: tenderness, pedal edema, joint swelling, calf tenderness Back exam: Present: normal inspection Neurological exam: Present: alert, oriented X3, CN II-XII intact Psychiatric exam: Present: normal affect, normal mood Skin exam: Present: warm, dry, intact, normal color. Absent: rash <Bakari Eubanks - Last Filed: 01/25/24 14:14> - General Exam Comments Initial Comments: Visual Physical Exam Vital signs reviewed General: Well-appearing, nontoxic, no acute distress. Head: Normocephalic, atraumatic Eyes: PERRLA, EOMI ENT: Airway patent Chest: Nonlabored breathing Skin: No visual rash, normal skin tone, wound to left calf. Drainage present. Neuro: Alert and oriented 3 Musculoskeletal: No gross abnormalities (Estella Lisa) Course <Bakari Eubanks - Last Filed: 01/25/24 14:14> Vital Signs 01/14/24 01/14/24 16:16 18:38 Temperature 98.9 F 98.9 F Pulse Rate 71 78 Respiratory 18 16 Rate Blood Pressure 107/65 111/59 O2 Sat by Pulse 94 L 99 Oximetry - Reevaluation(s) Reevaluation #1: Medical records reviewed (Bakari Eubanks) Reevaluation #2: Symptoms unchanged (Bakari Eubanks) Reevaluation #3: Results questions answered (Bakari Eubanks) Reevaluation #4: Was pt. sent in by a medical professional or institution (, PA, CIVIL ENGINEERING DIRECTOR, urgent care, hospital, or shelter...) When possible be specific @ -no Did you speak to anyone other than the patient for history (EMS, parent, family, police, friend...)? What history was obtained from this source @ -no Did you review nursing and triage notes (agree or disagree)? Why? @ -agree Are old charts reviewed (outside hosp., previous admission, EMS record, old EKG, old radiological studies, urgent care reports/EKG's, shelter records)? Rep ort findings @ -yes Differential Diagnosis (chest pain, altered mental status, abdominal pain women, abdominal pain men, vaginal bleeding, weakness, fever, dyspnea, syncope, headache, dizziness, GI bleed, back pain, seizure, CVA, palpatations, mental health, musculoskeletal)? @ -prior EKG interpreted by me (3pts min.). @ -no X-rays interpreted by me (1pt min.). @ -no CT interpreted by me (1pt min.). @ -no U/S interpreted by me (1pt. min.). @ -no What testing was considered but not performed or refused? (CT, X-rays, U/S, labs)? Why? @ -none What meds were considered but not given or refused? Why? @ -none Did you discuss the management of the patient with other professionals (professionals i.e. , PA, CIVIL ENGINEERING DIRECTOR, lab, RT, psych nurse, social research assistant, dosier operator, teacher, naval gunfire liaison officer, field nurse case manager)? Give summary @ -no Was smoking cessation discussed for >3mins.? @ -no Was critical care preformed (if so, how long)? @ -no Were there social determinants of health that impacted care today? How? (Homelessness, low income, unemployed, alcoholism, drug addiction, transportation, low edu. Level, literacy, decrease access to med. care, half-way, rehab)? @ -none Was there de-escalation of care discussed even if they declined (Discuss DNR or withdrawal of care, Hospice)? DNR status @ -no What co-morbidities impacted this encounter? (DM, HTN, Smoking, COPD, CAD, Cancer, CVA, ARF, Chemo, Hep., AIDS, mental health diagnosis, sleep apnea, morbid obesity)? @ -none Was patient admitted / discharged? Hospital course, mention meds given and route, prescriptions, significant lab abnormalities, going to OR and other pertinent info. @ - 88 male with significant ulcers of the left leg left lower extremity with surrounding cellulitis. Patient will be placed on antibiotics and can be discharged home Discharged Undiagnosed new problem with uncertain prognosis? @ -no Drug Therapy requiring intensive monitoring for toxicity (Heparin, Nitro, Insulin, Cardizem)? @ -no Were any procedures done? @ -no Diagnosis/symptom? @ -ulcer and cellulitis left lower extremity Acute, or Chronic, or Acute on Chronic? @ -Acute Uncomplicated (without systemic symptoms) or Complicated (systemic symptoms)? @ -Complicated Side effects of treatment? @ -no Exacerbation, Progression, or Severe Exacerbation? @ -exacerbation Poses a threat to life or bodily function? How? (Chest pain, USA, MS, pneumonia, PE, COPD, DKA, ARF, appy, cholecystitis, CVA, Diverticulitis, Homicidal, Suicidal, threat to staff... and all critical care pts) @ -yes extremes of age (Bakari Eubanks) Medical Decision Making <Estella Lisa - Last Filed: 01/14/24 16:07> <Bakari Eubanks - Last Filed: 01/25/24 14:14> - Medical Decision Making I performed the quick note portion of this chart. Electronically signed by Estella Lisa PA-C (Estella Lisa) 88 male with significant ulcers of the left leg left lower extremity with surrounding cellulitis. Patient will be placed on antibiotics and can be discharged home (Bakari Eubanks) Disposition <Estella Lisa - Last Filed: 01/14/24 16:07> Is patient prescribed a controlled substance at d/c from ED?: No Time of Disposition: 18:00 <Bakari Eubanks - Last Filed: 01/25/24 14:14> Clinical Impression: Leg ulcer, left Disposition: HOME SELF-CARE Condition: Good Instructions (If sedation given, give patient instructions): Chronic Wounds (ED), Acute Wounds (ED) Referrals: [facility],Clinic [Primary Care Provider] - 1-2 days
[2024-01-14 16:57] VITALS: TEMP 98.9
[2024-01-14] MEDS: CEPHALEXIN 500 MG CAP PO STA (18:23)
[2024-01-14] MEDS: MUPIROCIN 2% OINT 22 GM TUBE TOPICAL STA (18:24)
[2024-01-14] MEDS: CEPHALEXIN 500MG STARTER PACK 4 CAP BTL PO STA (18:25)
[2024-01-14] MEDS: SULFAMETHOX-TMP 800-160MG 1 EACH TAB PO STA (18:25)
[2024-01-14] MEDS: SULFAMETH-TMP DS STARTER PACK 2 TAB BTL PO STA (18:25)
[2024-01-14 19:16] VITALS: BP 111/59; PULSE 78; RESP 16
== END 2024-01-14 18:50 | disposition home or self-care (01) ==
LOC: EC 15:40
DX: L97.929 Non-pressure chronic ulcer of unspecified part of left lower leg with unspecified severity (principal); Z87.891 Personal history of nicotine dependence; Z88.8 Allergy status to other drugs, medicaments and biological substances
CPT/HCPCS: 99282

== ENCOUNTER 2024-01-16 14:34 | Inpatient (IN) | payer OTHER, MEDICARE ==
--- NOTE | 2024-01-16 15:27 | ED ---
Nausea/Vomiting/Diarrhea HPI - General Chief complaint: Nausea/Vomiting/Diarrhea Stated complaint: Vomiting, infection in left leg Time Seen by Provider: 01/16/24 14:46 Source: patient, RN notes reviewed, old records reviewed Mode of arrival: wheelchair Limitations: no limitations - History of Present Illness Initial comments: This is a 88-year-old male to the ER for evaluation. Patient comes in for severe nausea vomiting abdominal pain abdominal distention concern for leg pain leg swelling and states some confusion. Patient states he is unable to keep down any of his food or fluids and was recently diagnosed with gastric outlet obstruction from hiatal hernia MD complaint: nausea, vomiting, abdominal pain -: hour(s) Description of Vomiting: food contents, watery Associated Abdominal Pain: Yes Location: epigastric Radiation: none Severity: severe Severity scale (1-10): 8 Quality: stabbing, aching Consistency: constant Improves with: none Worsens with: none Associated Symptoms: loss of appetite, malaise, nausea/vomiting, weakness - Related Data Home Medications Medication Instructions Recorded Confirmed Albuterol Sulfate [Albuterol 1 puff INHALATION RT-QID PRN 12/30/23 01/16/24 Sulfate Hfa] Aspirin EC [Ecotrin Low Dose] 81 mg PO HS 12/30/23 01/16/24 Fluticasone Propion/Salmeterol 1 puff INHALATION RT-BID 12/30/23 01/16/24 [Fluticasone-Salmeterol 250-50] Levothyroxine Sodium [Synthroid] 25 mcg PO DAILY 12/30/23 01/16/24 Simvastatin [Zocor] 40 mg PO HS 12/30/23 01/16/24 Tiotropium 2.5 Mcg/Puff [Spiriva 2 puff INHALATION RT-DAILY 12/30/23 01/16/24 Respimat 2.5 Mcg] Mupirocin 2% Oint [Bactroban 2% 1 applic TOPICAL TID 01/16/24 01/16/24 Oint] atenoloL [Tenormin] 25 mg PO HS 01/16/24 01/16/24 atenoloL [Tenormin] 50 mg PO DAILY 01/16/24 01/16/24 Previous Rx's Medication Instructions Recorded Niacin [Slo-Niacin] 500 mg PO DAILY #0 01/05/24 Omeprazole 20 mg PO BID #60 tab 01/05/24 lisinopriL [Zestril] 10 mg PO DAILY #30 tab 01/05/24 HYDROcodone/APAP 5-325MG [[place] 1 tab PO Q6HR PRN 3 Days #12 tab 01/19/24 5-325] Allergies Allergy/AdvReac Type Severity Reaction Status Date / Time diazepam [From Valium] Allergy Anaphylaxis Verified 01/17/24 11:59 Review of Systems ROS Statement: Those systems with pertinent positive or pertinent negative responses have been documented in the HPI. ROS Other: All systems not noted in ROS Statement are negative. Past Medical History Past Medical History: COPD, Hyperlipidemia, Hypertension Additional Past Medical History / Comment(s): hiatal hernia History of Any Multi-Drug Resistant Organisms: None Reported Past Surgical History: Appendectomy, Back Surgery, Joint Replacement Additional Past Surgical History / Comment(s): nic knees, bowel obstrution Past Anesthesia/Blood Transfusion Reactions: No Reported Reaction Past Psychological History: No Psychological Hx Reported Smoking Status: Former smoker Past Alcohol Use History: None Reported Past Drug Use History: None Reported General Exam Limitations: no limitations General appearance: alert, in no apparent distress Head exam: Present: atraumatic, normocephalic, normal inspection Eye exam: Present: normal appearance, PERRL, EOMI. Absent: scleral icterus, conjunctival injection, periorbital swelling ENT exam: Present: normal exam, mucous membranes moist Neck exam: Present: normal inspection. Absent: tenderness, meningismus, lymphadenopathy Respiratory exam: Present: normal lung sounds bilaterally. Absent: respiratory distress, wheezes, rales, rhonchi, stridor Cardiovascular Exam: Present: regular rate, normal rhythm, normal heart sounds. Absent: systolic murmur, diastolic murmur, rubs, gallop, clicks GI/Abdominal exam: Present: soft, normal bowel sounds. Absent: distended, tenderness, guarding, rebound, rigid Extremities exam: Present: normal inspection, full ROM, normal capillary refill. Absent: tenderness, pedal edema, joint swelling, calf tenderness Back exam: Present: normal inspection Neurological exam: Present: alert, oriented X3, CN II-XII intact Psychiatric exam: Present: normal affect, normal mood Skin exam: Present: warm, dry, intact, normal color. Absent: rash Course Vital Signs 01/16/24 01/16/24 01/16/24 14:37 15:17 16:47 Temperature 97.9 F 99.0 F Pulse Rate 85 83 77 Respiratory 18 18 20 Rate Blood Pressure 127/74 138/65 127/76 O2 Sat by Pulse 92 L 93 L 95 Oximetry 01/16/24 01/17/24 01/17/24 19:28 01:59 03:00 Temperature Pulse Rate 77 74 65 Respiratory 18 18 19 Rate Blood Pressure 113/98 130/69 130/76 O2 Sat by Pulse 97 95 Oximetry 01/17/24 01/17/24 01/17/24 03:57 04:00 06:00 Temperature Pulse Rate 64 64 63 Respiratory 16 22 17 Rate Blood Pressure 130/45 106/57 116/62 O2 Sat by Pulse 96 98 97 Oximetry 01/17/24 01/17/24 08:00 10:00 Temperature Pulse Rate 68 67 Respiratory Rate Blood Pressure 108/57 123/63 O2 Sat by Pulse 95 98 Oximetry - Reevaluation(s) Reevaluation #1: 01/16/24 16:55 Medical records reviewed Reevaluation #2: 01/16/24 16:55 Patient symptoms unchanged Reevaluation #3: 01/16/24 16:55 Patient informed of results questions answered Reevaluation #4: Was pt. sent in by a medical professional or institution (, PA, GLOBAL CREATIVE CHAIRMAN, urgent care, hospital, or retirement...) When possible be specific @ -no Did you speak to anyone other than the patient for history (EMS, parent, family, police, friend...)? What history was obtained from this source @ -no Did you review nursing and triage notes (agree or disagree)? Why? @ -agree Are old charts reviewed (outside hosp., previous admission, EMS record, old EKG, old radiological studies, urgent care reports/EKG's, retirement records)? Report findings @ -yes Differential Diagnosis (chest pain, altered mental status, abdominal pain women, abdominal pain men, vaginal bleeding, weakness, fever, dyspnea, syncope, headache, dizziness, GI bleed, back pain, seizure, CVA, palpatations, mental health, musculoskeletal)? @ -prior EKG interpreted by me (3pts min.). @ -yes X-rays interpreted by me (1pt min.). @ -no CT interpreted by me (1pt min.). @ -Yes positive for significant gastric outlet obstruction from hiatal hernia U/S interpreted by me (1pt. min.). @ -no What testing was considered but not performed or refused? (CT, X-rays, U/S, labs)? Why? @ -none What meds were considered but not given or refused? Why? @ -none Did you discuss the management of the patient with other professionals (professionals i.e. Dr., PA, GLOBAL CREATIVE CHAIRMAN, lab, RT, psych nurse, clinical social work therapist, shank skinner, teacher, sba business development officer, case liner)? Give summary @ -no Was smoking cessation discussed for >3mins.? @ -no Was critical care preformed (if so, how long)? @ -yes31 Were there social determinants of health that impacted care today? How? (Homelessness, low income, unemployed, alcoholism, drug addiction, transportation, low edu. Level, literacy, decrease access to med. care, correction, rehab)? @ -none Was there de-escalation of care discussed even if they declined (Discuss DNR or withdrawal of care, Hospice)? DNR status @ -no What co-morbidities impacted this encounter? (DM, HTN, Smoking, COPD, CAD, Cancer, CVA, ARF, Chemo, Hep., AIDS, mental health diagnosis, sleep apnea, morbid obesity)? @ -none Was patient admitted / discharged? Hospital course, mention meds given and route, prescriptions, significant lab abnormalities, going to OR and other pertinent info. @ - 88 male to be admitted for recurrent gastric outlet obstruction and nausea vomiting with abdominal pain. Patient has significant gastric outlet obstruction with significant amount of fluid in his stomach, patient also does have ulceration of left lower extremity Admitted Undiagnosed new problem with uncertain prognosis? @ -no Drug Therapy requiring intensive monitoring for toxicity (Heparin, Nitro, Insulin, Cardizem)? @ -no Were any procedures done? @ -no Diagnosis/symptom? @ -Gastric outlet obstruction with left lower extremity venous ulcer Acute, or Chronic, or Acute on Chronic? @ -Acute Uncomplicated (without systemic symptoms) or Complicated (systemic symptoms)? @ -Complicated Side effects of treatment? @ -no Exacerbation, Progression, or Severe Exacerbation? @ -exacerbation Poses a threat to life or bodily function? How? (Chest pain, USA, VT, pneumonia, PE, COPD, DKA, ARF, appy, cholecystitis, CVA, Diverticulitis, Homicidal, Suicidal, threat to staff... and all critical care pts) @ -yes severe extremes of age Reevaluation #5: Differential Abdominal Pain Men: Appendicitis, cholecystitis, diverticulosis, ischemic bowel, pancreatitis, he patitis, UTI, gastroenteritis, AAA, incarcerated hernia, bowel obstruction, constipation, inflammatory bowel, hepatitis, peptic ulcer disease, splenic infarction, perforated viscus, testicular torsion, this is not meant to be an all-inclusive list - Consultations Consultation #1: Spoke with naomi who agrees to admit this patient Medical Decision Making - Medical Decision Making 88 male to be admitted for recurrent gastric outlet obstruction and nausea vomiting with abdominal pain. Patient has significant gastric outlet obstruction with significant amount of fluid in his stomach, patient also does have ulceration of left lower extremity - Lab Data Result diagrams: 01/18/24 03:15 01/20/24 06:10 Lab Results 01/16/24 01/16/24 01/16/24 Range/Units 15:41 15:41 15:41 WBC 6.8 (3.8-10.6) k/uL RBC 4.54 (4.30-5.90) m/uL Hgb 13.1 (13.0-17.5) gm/dL Hct 40.7 (39.0-53.0) % MCV 89.6 (80.0-100.0) fL MCH 28.8 (25.0-35.0) pg MCHC 32.1 (31.0-37.0) g/dL RDW 15.0 (11.5-15.5) % Plt Count 295 (150-450) k/uL MPV 7.6 Neutrophils % 78 % Lymphocytes % 10 % Monocytes % 6 % Eosinophils % 3 % Basophils % 1 % Neutrophils # 5.3 (1.3-7.7) k/uL Lymphocytes # 0.7 L (1.0-4.8) k/uL Monocytes # 0.4 (0-1.0) k/uL Eosinophils # 0.2 (0-0.7) k/uL Basophils # 0.1 (0-0.2) k/uL PT 10.8 (10.0-12.5) sec INR 1.0 (<1.2) APTT 21.2 L (22.0-30.0) sec Sodium 136 L (137-145) mmol/L Potassium 4.5 (3.5-5.1) mmol/L Chloride 101 (98-107) mmol/L Carbon Dioxide 26 (22-30) mmol/L Anion Gap 9 mmol/L BUN 24 H (9-20) mg/dL Creatinine 1.02 (0.66-1.25) mg/dL Est GFR (CKD-EPI)AfAm 76 (>60 ml/min/1.73 sqM) Est GFR (CKD-EPI)NonAf 66 (>60 ml/min/1.73 sqM) Glucose 124 H (74-99) mg/dL Plasma Lactic Acid Mariusz (0.7-2.0) mmol/L Calcium 9.6 (8.4-10.2) mg/dL Phosphorus 3.6 (2.5-4.5) mg/dL Magnesium 1.8 (1.6-2.3) mg/dL Total Bilirubin 1.0 (0.2-1.3) mg/dL AST 29 (17-59) U/L ALT 26 (4-49) U/L Alkaline Phosphatase 79 (38-126) U/L Troponin I (0.000-0.034) ng/mL NT-Pro-B Natriuret Pep 2260 pg/mL Total Protein 6.8 (6.3-8.2) g/dL Albumin 3.7 (3.5-5.0) g/dL Lipase 96 (23-300) U/L Urine Color Urine Appearance (Clear) Urine pH (5.0-8.0) Ur Specific [place] (1.001-1.035) Urine Protein (Negative) Urine Glucose (UA) (Negative) Urine Ketones (Negative) Urine Blood (Negative) Urine Nitrite (Negative) Urine Bilirubin (Negative) Urine Urobilinogen (<2.0) mg/dL Ur Leukocyte Esterase (Negative) 01/16/24 01/16/24 01/16/24 Range/Units 15:41 15:41 15:48 WBC (3.8-10.6) k/uL RBC (4.30-5.90) m/uL Hgb (13.0-17.5) gm/dL Hct (39.0-53.0) % MCV (80.0-100.0) fL MCH (25.0-35.0) pg MCHC (31.0-37.0) g/dL RDW (11.5-15.5) % Plt Count (150-450) k/uL MPV Neutrophils % % Lymphocytes % % Monocytes % % Eosinophils % % Basophils % % Neutrophils # (1.3-7.7) k/uL Lymphocytes # (1.0-4.8) k/uL Monocytes # (0-1.0) k/uL Eosinophils # (0-0.7) k/uL Basophils # (0-0.2) k/uL PT (10.0-12.5) sec INR (<1.2) APTT (22.0-30.0) sec Sodium (137-145) mmol/L Potassium (3.5-5.1) mmol/L Chloride (98-107) mmol/L Carbon Dioxide (22-30) mmol/L Anion Gap mmol/L BUN (9-20) mg/dL Creatinine (0.66-1.25) mg/dL Est GFR (CKD-EPI)AfAm (>60 ml/min/1.73 sqM) Est GFR (CKD-EPI)NonAf (>60 ml/min/1.73 sqM) Glucose (74-99) mg/dL Plasma Lactic Acid Mariusz 1.4 (0.7-2.0) mmol/L Calcium (8.4-10.2) mg/dL Phosphorus (2.5-4.5) mg/dL Magnesium (1.6-2.3) mg/dL Total Bilirubin (0.2-1.3) mg/dL AST (17-59) U/L ALT (4-49) U/L Alkaline Phosphatase (38-126) U/L Troponin I 0.043 H* (0.000-0.034) ng/mL NT-Pro-B Natriuret Pep pg/mL Total Protein (6.3-8.2) g/dL Albumin (3.5-5.0) g/dL Lipase (23-300) U/L Urine Color Yellow Urine Appearance Clear (Clear) Urine pH 6.0 (5.0-8.0) Ur Specific [place] 1.017 (1.001-1.035) Urine Protein Negative (Negative) Urine Glucose (UA) Negative (Negative) Urine Ketones Trace H (Negative) Urine Blood Negative (Negative) Urine Nitrite Negative (Negative) Urine Bilirubin Negative (Negative) Urine Urobilinogen 3.0 (<2.0) mg/dL Ur Leukocyte Esterase Negative (Negative) - EKG Data -: EKG Interpreted by Me (EKG is paced 82 MA 366 QRS 133 QTc 4 4042) - Radiology Data Radiology results: report reviewed (CT abdomen pelvis does show gastric outlet obstruction from hiatal hernia), image reviewed Critical Care Time Critical Care Time: Yes Total Critical Care Time: 31 Disposition Clinical Impression: Gastric outlet obstruction, Nausea & vomiting, Abdominal pain, Hiatal hernia, Dehydration, Leg ulcer, left, Non-pressure chronic ulcer of left calf with fat layer exposed Disposition: ADMITTED IP TO THIS [facility] Condition: Good Is patient prescribed a controlled substance at d/c from ED?: No
[2024-01-16 15:56] LABS: Basophils # (A) 0.1 k/uL (0-0.2); Basophils % (A) 1 %; Eosinophils # (A) 0.2 k/uL (0-0.7); Eosinophils % (A) 3 %; HCT 40.7 % (39.0-53.0); HGB 13.1 gm/dL (13.0-17.5); Lymphocytes # (A) 0.7 k/uL (1.0-4.8); Lymphocytes % (A) 10 %; MCH 28.8 pg (25.0-35.0); MCHC 32.1 g/dL (31.0-37.0); MCV 89.6 fL (80.0-100.0); Mean Platelet Volume 7.6; Monocytes # (A) 0.4 k/uL (0-1.0); Monocytes % (A) 6 %; Neutrophils # (A) 5.3 k/uL (1.3-7.7); Neutrophils % (A) 78 %; Platelet Count 295 k/uL (150-450); RBC 4.54 m/uL (4.30-5.90); WBC 6.8 k/uL (3.8-10.6)
[2024-01-16] MEDS: SODIUM CHLORIDE 0.9% 1,000 ML IV STA (16:01)
[2024-01-16] MEDS: ONDANSETRON 4 MG/2 ML VIAL IVP STA (16:02)
[2024-01-16] MEDS: MORPHINE SULFATE 4 MG/ML SYRINGE IV STA (16:02)
[2024-01-16 16:05] LABS: Prothrombin Time 10.8 sec (10.0-12.5)
[2024-01-16 16:13] LABS: Partial Thromboplastin Time 21.2 sec (22.0-30.0)
--- NOTE | 2024-01-16 16:13 | CT ---
EXAMINATION TYPE: CT abdomen pelvis wo con CT DLP: 472.7 mGycm, Automated exposure control for dose reduction was used. DATE OF EXAM: 01/16/2024 3:54 PM COMPARISON: 01/02/2024 CLINICAL INDICATION:Male, 88 years old with history of pain; pain, N/V. TECHNIQUE: Axial CT abdomen pelvis wo con;Sagittal and coronal reformats were created on a separate workstation. Contrast used: mL of , (none if empty) Oral contrast used: without Oral Contrast (none if empty) FINDINGS: LOWER CHEST: Moderate centrilobular emphysema changes. ABDOMEN LIVER: Unremarkable GALLBLADDER AND BILE DUCTS: Layering gallstones present. PANCREAS: Unremarkable. SPLEEN: Unremarkable. ADRENAL GLANDS: Unremarkable. KIDNEYS AND URETERS: No evidence of hydronephrosis or renal calculus. The ureters are unremarkable. PELVIS BLADDER: Posterior right lateral bladder diverticula. REPRODUCTIVE: Prostate is enlarged in size measuring 5.0 cm in transverse dimension. ABDOMEN & PELVIS STOMACH AND BOWEL: No evidence of bowel obstruction. Large hiatal hernia with the gastric antrum and first portion of the duodenum and the thorax. There is narrowing of anayeli duodenum as it reenters the abdomen series 201 image 18 this is causing some degree of obstruction of the gastric lumen. Scattere d colonic diverticula. PERITONEUM/RETROPERITONEUM: No evidence of pneumoperitoneum or free fluid. VASCULATURE: Atherosclerosis of the arterial vasculature. MUSCULOSKELETAL: No acute osseous abnormalities, severe degeneration changes of the hips with osteoph ytes and subchondral cystic change. LYMPH NODES: No gross evidence for lymphadenopathy. SOFT TISSUE/ABDOMINAL WALL: Fatty changes in the inguinal canals. IMPRESSION: 1. Large hiatal hernia with the gastric antrum proximal duodenum in the thorax. There is narrowing o f the duodenum as it reenters the thorax likely causing gastric outlet obstruction. Surgical consulta tion recommended. Consider nasogastric tube is present. Findings are unchanged from prior exams datin g back to 12/30/2023. 2. Colonic diverticulosis. 3. Right lateral bladder diverticula. 4. Prostatomegaly, correlate with serum PSA. 5. Cholelithiasis
[2024-01-16 16:17] LABS: ALT 26 U/L (4-49); AST 29 U/L (17-59); African American GFR (CKD) 76 (>60 ml/min/1.73 sqM); Albumin 3.7 g/dL (3.5-5.0); Alkaline Phosphatase 79 U/L (38-126); Anion Gap 9 mmol/L; Blood Urea Nitrogen 24 mg/dL (9-20); Calcium 9.6 mg/dL (8.4-10.2); Carbon Dioxide 26 mmol/L (22-30); Chloride 101 mmol/L (98-107); Glucose 124 mg/dL (74-99); Lipase 96 U/L (23-300); Magnesium 1.8 mg/dL (1.6-2.3); Non-African American GFR(CKD) 66 (>60 ml/min/1.73 sqM); Phosphorus 3.6 mg/dL (2.5-4.5); Potassium 4.5 mmol/L (3.5-5.1); Sodium 136 mmol/L (137-145); Total Protein 6.8 g/dL (6.3-8.2)
[2024-01-16 16:24] LABS: NT-Pro-B-Type Natriuretic Pept 2260 pg/mL
[2024-01-16 16:50] LABS: Appearance,Urine Clear (Clear); Bilirubin,Urine Negative (Negative); Blood,Urine Negative (Negative); Color,Urine Yellow; Glucose,Urine (UA) Negative (Negative); Ketones,Urine Trace (Negative); Leukocyte Esterase,Urine Negative (Negative); Nitrite,Urine Negative (Negative); Protein,Urine Negative (Negative); Specific Gravity,Urine 1.017 (1.001-1.035)
[2024-01-16] MEDS ORDERED: NALOXONE 0.4 MG/ML 1 ML VIAL IV PRN (16:53)
[2024-01-16] MEDS: PANTOPRAZOLE 40 MG/10 ML VIAL IV SCH (16:59)
[2024-01-16] MEDS: SODIUM CHLORIDE 0.9% 1,000 ML IV SCH (17:00)
--- NOTE | 2024-01-16 18:06 | P.HPIM ---
History of Present Illness H&P Date: 01/16/24 Patient is a 88-year-old male with history of COPD on chronic O2 at 4 L, hypertension, dyslipidemia, multiple other comorbid conditions presented with nausea vomiting. Of note patient was recently admitted on 12/29 to 01/04 with similar symptoms. At that time gastric outlet obstruction resolved with conservative management. Initial plan was to go for a laparoscopic repair of paraesophageal hiatal hernia however due to high risk for surgery, patient decided for close outpatient follow-up instead. He claims that he was doing well up until this morning when he had to take some antibiotics which caused him to have an episode of emesis. He claims that he has been able to keep small brendan unts of food down especially thin liquids. He denies any fevers, chills, shortness of breath, chest pain, or urinary complaints. He does have some epigastric pain which was present previously as well is epigastric pain does resolve with water. In the ED, temperature was 97.9, pulse 85, respiratory rate 18, blood pressure 127/74, saturating at 92% on 4 L. CBC unremarkable, sodium 136, potassium 4.5, BUN 24, creatinine 1.02, glucose 124, lactate 1.4, troponin 0.043, proBNP 2200. Urinalysis negative. EKG shows sinus rhythm with right bundle branch block. CT abdomen pelvis shows large hiatal hernia with gastric antrum and proximal duodenum in the thorax, gastric outlet obstruction similar to 12/30/2023, colonic diverticulosis, right lateral bladder diverticula, prostatic megaly, and pat lithiasis. Patient admitted for persistent nausea and vomiting with gastric outlet obstruction. Surgery consulted. Pertinent positives and negatives as discussed in HPI, a complete review of systems was performed and all other systems are negative. Patient seen and examined at bedside. Vital signs reviewed General: nontoxic, no distress, appears at stated age Derm: warm, dry, left lower leg lateral ulcer, with a clean base, no induration or erythema or drainage noted Head: atraumatic, normocephalic, symmetric Eyes: EOMI, no lid lag, anicteric sclera, pupils equal round reactive to light ENT: Nose and ears atraumatic Neck: No thyromegaly, supple Mouth: no lip lesion, mucus membranes moist Cardiovascular: S1S2 reg, no murmur, no edema, supplemental oxygen Lungs: clear to auscultation bilateral, no rhonchi, no rales, no wheeze, no accessory muscle use Abdominal: soft, nontender to palpation, no guarding, no appreciable organomegaly Ext: no gross muscle atrophy, muscle strength muscle strength 5 out of 5 in all 4 extremities, no contractures Neuro: CN II-XII grossly intact Psych: Alert, oriented, appropriate affect Assessment/Plan: Active: Persistent gastric outlet obstruction Nausea vomiting Large hiatal hernia Elevated troponin, likely nonischemic -Consider NG tube placement if further nausea vomiting -Keep n.p.o. for now -Pain control IV morphine as needed, monitor for sedation -Zofran 4 mg IV every 8 hourly as needed for nausea vomiting -Protonix 40 IV daily -Continue normal saline at 75 cc an hour -Surgery consulted, pending recommendations -Troponin downtrending from previous admission, continue to trend -Continue telemetry monitoring -Patient remains high surgical risk candidate, as was previously discussed -Repeat CBC and BMP tomorrow Lower extremity wound/ulcer present on admission -Wound care consult -Related to trauma, no antibiotics recommended Chronic: COPD, not in exacerbation Chronic hypoxic respiratory failure Dyslipidemia Hypertension Hypothyroidism Restart home medications, when reconciled by pharmacy. The patient is admitted with an anticipated greater than 2 midnight stay as inpatient status for evaluation of gastric outlet obstruction. Surrogate decision-maker: Niece CODE STATUS: DNR/DNI DVT prophylaxis: SCDs Anticipated discharge date: Pending clinical course Anticipated discharge place: Pending clinical course A total of 55 minutes was spent on the care of this complex patient more than 50% of the time was spent in counseling and care coordination. Past Medical History Past Medical History: COPD, Hyperlipidemia, Hypertension Additional Past Medical History / Comment(s): hiatal hernia History of Any Multi-Drug Resistant Organisms: None Reported Past Surgical History: Appendectomy, Back Surgery, Joint Replacement Additional Past Surgical History / Comment(s): nic knees, bowel obstrution Past Anesthesia/Blood Transfusion Reactions: No Reported Reaction Past Psychological History: No Psychological Hx Reported Smoking Status: Former smoker Past Alcohol Use History: None Reported Past Drug Use History: None Reported Medications and Allergies Home Medications Medication Instructions Recorded Confirmed Type Albuterol Sulfate [Albuterol 1 puff INHALATION RT-QID PRN 12/30/23 12/30/23 Hi story Sulfate Hfa] Aspirin EC [Ecotrin Low Dose] 81 mg PO HS 12/30/23 12/30/23 History Fluticasone Propion/Salmeterol 1 puff INHALATION RT-BID 12/30/23 12/30/23 History [Fluticasone-Salmeterol 250-50] Levothyroxine Sodium [Synthroid] 25 mcg PO DAILY 12/30/23 12/30/23 History Simvastatin [Zocor] 40 mg PO HS 12/30/23 12/30/23 History Tiotropium 2.5 Mcg/Puff [Spiriva 2 puff INHALATION RT-DAILY 12/30/23 12/30/23 History Respimat 2.5 Mcg] Niacin [Slo-Niacin] 500 mg PO DAILY #0 01/05/24 12/30/23 Rx Omeprazole 20 mg PO BID #60 tab 01/05/24 Rx atenoloL [Tenormin] See Rx Instructions .ROUTE 01/05/24 Rx .COMPLEX #90 tab lisinopriL [Zestril] 10 mg PO DAILY #30 tab 01/05/24 Rx Cephalexin [Keflex] 500 mg PO Q6HR #40 cap 01/14/24 Rx Sulfamethox-Tmp 800-160Mg [Bactrim 1 tab PO Q12HR #20 tab 01/14/24 Rx DS 800-160 mg] Allergies Allergy/AdvReac Type Severity Reaction Status Date / Time diazepam [From Valium] Allergy Anaphylaxis Verified 01/16/24 14:42 Physical Exam Vitals: Vital Signs Temp Pulse Resp BP Pulse Ox 01/16/24 16:47 77 20 127/76 95 01/16/24 15:17 99.0 F 83 18 138/65 93 L 01/16/24 14:37 97.9 F 85 18 127/74 92 L Intake and Output 01/16/24 01/16/24 01/16/24 06:59 14:59 22:59 Other: Weight 68.039 kg Results CBC & Chem 7: 01/16/24 15:41 01/16/24 15:41 Labs: Abnormal Lab Results - Last 24 Hours (Table) 01/16/24 01/16/24 01/16/24 Range/Units 15:41 15:41 15:41 Lymphocytes # 0.7 L (1.0-4.8) k/uL APTT 21.2 L (22.0-30.0) sec Sodium 136 L (137-145) mmol/L BUN 24 H (9-20) mg/dL Glucose 124 H (74-99) mg/dL Troponin I (0.000-0.034) ng/mL Urine Ketones (Negative) 01/16/24 01/16/24 Range/Units 15:41 15:48 Lymphocytes # (1.0-4.8) k/uL APTT (22.0-30.0) sec Sodium (137-145) mmol/L BUN (9-20) mg/dL Glucose (74-99) mg/dL Troponin I 0.043 H* (0.000-0.034) ng/mL Urine Ketones Trace H (Negative)
[2024-01-17] MEDS: ONDANSETRON 4 MG/2 ML VIAL IVP PRN (00:08)
[2024-01-17] MEDS: MORPHINE SULFATE 4 MG/ML SYRINGE IV PRN (00:09)
[2024-01-17 04:06] LABS: Basophils % (A) 1 %; Eosinophils # (A) 0.3 k/uL (0-0.7); Eosinophils % (A) 4 %; HCT 35.5 % (39.0-53.0); HGB 11.3 gm/dL (13.0-17.5); Lymphocytes # (A) 0.7 k/uL (1.0-4.8); Lymphocytes % (A) 10 %; MCHC 31.8 g/dL (31.0-37.0); MCV 91.4 fL (80.0-100.0); Mean Platelet Volume 7.8; Monocytes # (A) 0.6 k/uL (0-1.0); Monocytes % (A) 8 %; Neutrophils # (A) 5.3 k/uL (1.3-7.7); Neutrophils % (A) 74 %; Platelet Count 230 k/uL (150-450); RBC 3.88 m/uL (4.30-5.90); WBC 7.2 k/uL (3.8-10.6)
[2024-01-17 04:27] LABS: African American GFR (CKD) 89 (>60 ml/min/1.73 sqM); Anion Gap 4 mmol/L; Blood Urea Nitrogen 19 mg/dL (9-20); Calcium 8.8 mg/dL (8.4-10.2); Carbon Dioxide 29 mmol/L (22-30); Chloride 102 mmol/L (98-107); Glucose 102 mg/dL (74-99); Magnesium 1.8 mg/dL (1.6-2.3); Non-African American GFR(CKD) 77 (>60 ml/min/1.73 sqM); Potassium 4.7 mmol/L (3.5-5.1); Sodium 135 mmol/L (137-145)
[2024-01-17] MEDS: METOPROLOL TARTRATE 50 MG TAB PO SCH (11:52)
[2024-01-17] MEDS: LEVOTHYROXINE 25 MCG TAB PO SCH (11:52)
[2024-01-17] MEDS: MIDAZOLAM 2 MG/2 ML VIAL IVP ONE (12:14)
--- NOTE | 2024-01-17 12:30 | P.ANPRN ---
Procedure Note - Anesthesia - Invasive Line Right Arterial Line Time Out Performed: Yes Date of Procedure: 01/17/24 Time of Procedure: 12:14 Location of Patient: PreOp Preparation: Sterile Prep Arterial Line Location: Radial Ultrasound Used: No Needle Guage: 22g, [id number] Image Stored and Saved: No Narrative: Invasive line placement per sterile protocol utilized.
[2024-01-17] MEDS ORDERED: IPRATROPIUM-ALBUTEROL 3 ML NEB ONE (12:46)
--- NOTE | 2024-01-17 12:46 | P.GSCN ---
History of Present Illness Consult date: 01/17/24 History of present illness: CHIEF COMPLAINT: vomiting HISTORY OF PRESENT ILLNESS: This is a 88-year-old male with a known history of a large hiatal hernia with gastric volvulus with a gastric outlet obstruction. Patient was just recently hospitalized earlier in December he was managed conservatively with NG tube placement. He reports that he was doing well after discharge. However yesterday he had taken antibiotics with cottage cheese and started having vomiting. He complained of epigastric abdominal pain. It has been about 2 days since his last bowel movement. He is having flatus today. He reports that his pain is better today. But the CT scan abdomen pelvis reports large hiatal hernia with gastric antrum and proximal duodenum in the thorax. There is narrowing of the duodenum as it reenters the thorax likely causing gastric outlet obstruction. Findings are unchanged from prior exam on 12/30/2023. Patient has a known history of COPD on 4 L of oxygen as well as severe pulmonary hypertension. Patient's past surgical history includes appendectomy and lysis of adhesions. He denies being on any blood thinners. PAST MEDICAL HISTORY: Severe pulmonary hypertension, COPD, hyperlipidemia, hypertension, large hiatal hernia, bowel obstruction PAST SURGICAL HISTORY: Appendectomy, Back Surgery, Joint Replacement MEDICATIONS: See below ALLERGIES: See below SOCIAL HISTORY: No illicit drug use. REVIEW OF SYSTEMS: CONSTITUTIONAL: Denies fever or chills. HEENT: Denies blurred vision, vision changes, or eye pain. Denies hemoptysis CARDIOVASCULAR: Denies chest pain or pressure. RESPIRATORY: No shortness of breath. GASTROINTESTINAL: See HPI for pertinent findings HEMATOLOGIC: Denies bleeding disorders. GENITOURINARY: Denies any blood in urine or increased urinary frequency. SKIN: Denies pruitis. Denies rash. PHYSICAL EXAM: VITAL SIGNS: Reviewed GENERAL: Well-developed in no acute distress. HEENT: No sclera icterus. Extraocular movements grossly intact. Moist buccal mucosa. Head is atraumatic, normocephalic. No nasal drainage. ABDOMEN: Soft. Nondistended. Nontender NEUROLOGIC: Alert and oriented. Cranial nerves II through XII grossly intact. Extremities: ulceration on the left calf LABORATORY DATA: WBC 7.2 HGB 11.3 plt 230 Na 135 K 4.7 Cr 0.87 Mildly elevated troponins IMAGING: CT scan abdomen and pelvis reports a large hiatal hernia with gastric antrum and proximal duodenum in the thorax. There is narrowing of the duodenum as it reinjures the thorax likely causing gastric outlet obstruction. Colonic diverticulosis. Right lateral bladder diverticula. Prostamegaly. Cholelithiasis. ASSESSMENT: 1. Gastric outlet obstruction secondary to volvulus 2. Large hiatal hernia PLAN: -Patient scheduled for laparoscopic repair of paraesophageal hiatal hernia with Dr. Coulter today. Patient is known to be high risk for surgical intervention. Cardiology consulted. Case discussed with medicine service. Per medicine service no contraindication for surgery but is high risk. -Keep patient n.p.o. -Continue IV fluids -Continue supportive care Physician Jig Operator note has been reviewed by physician. Signing provider agrees with the documented findings, assessment, and plan of care. Past Medical History Past Medical History: COPD, Hyperlipidemia, Hypertension Additional Past Medical History / Comment(s): hiatal hernia History of Any Multi-Drug Resistant Organisms: None Reported Past Surgical History: Appendectomy, Back Surgery, Joint Replacement Additional Past Surgical History / Comment(s): nic knees, bowel obstrution Past Anesthesia/Blood Transfusion Reactions: No Reported Reaction Past Psychological History: No Psychological Hx Reported Smoking Status: Former smoker Past Alcohol Use History: None Reported Past Drug Use History: None Reported Medications and Allergies Home Medications Medication Instructions Recorded Confirmed Type Albuterol Sulfate [Albuterol 1 puff INHALATION RT-QID PRN 12/30/23 01/16/24 History Sulfate Hfa] Aspirin EC [Ecotrin Low Dose] 81 mg PO HS 12/30/23 01/16/24 History Fluticasone Propion/Salmeterol 1 puff INHALATION RT-BID 12/30/23 01/16/24 History [Fluticasone-Salmeterol 250-50] Levothyroxine Sodium [Synthroid] 25 mcg PO DAILY 12/30/23 01/16/24 History Simvastatin [Zocor] 40 mg PO HS 12/30/23 01/16/24 History Tiotropium 2.5 Mcg/Puff [Spiriva 2 puff INHALATION RT-DAILY 12/30/23 01/16/24 History Respimat 2.5 Mcg] Niacin [Slo-Niacin] 500 mg PO DAILY #0 01/05/24 01/16/24 Rx Omeprazole 20 mg PO BID #60 tab 01/05/24 01/16/24 Rx lisinopriL [Zestril] 10 mg PO DAILY #30 tab 01/05/24 01/16/24 Rx Cephalexin [Keflex] 500 mg PO Q6HR #40 cap 01/14/24 01/16/24 Rx Sulfamethox-Tmp 800-160Mg [Bactrim 1 tab PO Q12HR #20 tab 01/14/24 01/16/24 Rx DS 800-160 mg] Mupirocin 2% Oint [Bactroban 2% 1 applic TOPICAL TID 01/16/24 01/16/24 History Oint] atenoloL [Tenormin] 25 mg PO HS 01/16/24 01/16/24 History atenoloL [Tenormin] 50 mg PO DAILY 01/16/24 01/16/24 History Allergies Allergy/AdvReac Type Severity Reaction Status Date / Time diazepam [From Valium] Allergy Anaphylaxis Verified 01/17/24 11:59 Surgical - Exam Vital Signs Temp Pulse Resp BP Pulse Ox 97.9 F 85 18 127/74 92 L 01/16/24 14:37 01/16/24 14:37 01/16/24 14:37 01/16/24 14:37 01/16/24 14:37 Results - Labs 01/17/24 02:46 01/17/24 02:46 Abnormal Lab Results - Last 24 Hours (Table) 01/16/24 01/16/24 01/16/24 Range/Units 15:41 15:41 15:41 RBC (4.30-5.90) m/uL Hgb (13.0-17.5) gm/dL Hct (39.0-53.0) % Lymphocytes # 0.7 L (1.0-4.8) k/uL APTT 21.2 L (22.0-30.0) sec Sodium 136 L (137-145) mmol/L BUN 24 H (9-20) mg/dL Glucose 124 H (74-99) mg/dL Troponin I (0.000-0.034) ng/mL Urine Ketones (Negative) 01/16/24 01/16/24 01/17/24 Range/Units 15:41 15:48 02:46 RBC 3.88 L (4.30-5.90) m/uL Hgb 11.3 L (13.0-17.5) gm/dL Hct 35.5 L (39.0-53.0) % Lymphocytes # 0.7 L (1.0-4.8) k/uL APTT (22.0-30.0) sec Sodium (137-145) mmol/L BUN (9-20) mg/dL Glucose (74-99) mg/dL Troponin I 0.043 H* (0.000-0.034) ng/mL Urine Ketones Trace H (Negative) 01/17/24 01/17/24 01/17/24 Range/Units 02:46 03:39 09:45 RBC (4.30-5.90) m/uL Hgb (13.0-17.5) gm/dL Hct (39.0-53.0) % Lymphocytes # (1.0-4.8) k/uL APTT (22.0-30.0) sec Sodium 135 L (137-145) mmol/L BUN (9-20) mg/dL Glucose 102 H (74-99) mg/dL Troponin I 0.061 H* 0.059 H* (0.000-0.034) ng/mL Urine Ketones (Negative) Diabetes panel 01/16/24 01/17/24 Range/Units 15:41 02:46 Sodium 136 L 135 L (137-145) mmol/L Potassium 4.5 4.7 (3.5-5.1) mmol/L Chloride 101 102 (98-107) mmol/L Carbon Dioxide 26 29 (22-30) mmol/L BUN 24 H 19 (9-20) mg/dL Creatinine 1.02 0.87 (0.66-1.25) mg/dL Glucose 124 H 102 H (74-99) mg/dL Calcium 9.6 8.8 (8.4-10.2) mg/dL AST 29 (17-59) U/L ALT 26 (4-49) U/L Alkaline Phosphatase 79 (38-126) U/L Total Protein 6.8 (6.3-8.2) g/dL Albumin 3.7 (3.5-5.0) g/dL Calcium panel 01/16/24 01/17/24 Range/Units 15:41 02:46 Calcium 9.6 8.8 (8.4-10.2) mg/dL Phosphorus 3.6 (2.5-4.5) mg/dL Albumin 3.7 (3.5-5.0) g/dL Pituitary panel 01/16/24 01/17/24 Range/Units 15:41 02:46 Sodium 136 L 135 L (137-145) mmol/L Potassium 4.5 4.7 (3.5-5.1) mmol/L Chloride 101 102 (98-107) mmol/L Carbon Dioxide 26 29 (22-30) mmol/L BUN 24 H 19 (9-20) mg/dL Creatinine 1.02 0.87 (0.66-1.25) mg/dL Glucose 124 H 102 H (74-99) mg/dL Calcium 9.6 8.8 (8.4-10.2) mg/dL Adrenal panel 01/16/24 01/17/24 Range/Units 15:41 02:46 Sodium 136 L 135 L (137-145) mmol/L Potassium 4.5 4.7 (3.5-5.1) mmol/L Chloride 101 102 (98-107) mmol/L Carbon Dioxide 26 29 (22-30) mmol/L BUN 24 H 19 (9-20) mg/dL Creatinine 1.02 0.87 (0.66-1.25) mg/dL Glucose 124 H 102 H (74-99) mg/dL Calcium 9.6 8.8 (8.4-10.2) mg/dL Total Bilirubin 1.0 (0.2-1.3) mg/dL AST 29 (17-59) U/L ALT 26 (4-49) U/L Alkaline Phosphatase 79 (38-126) U/L Total Protein 6.8 (6.3-8.2) g/dL Albumin 3.7 (3.5-5.0) g/dL
--- NOTE | 2024-01-17 12:49 | P.CRDCN ---
History of Present Illness Consult date: 01/17/24 Reason for Consult (text): Preop clearance History of present illness: This is a 88-year-old male with a past medical history significant for h ypertension, hyperlipidemia, diabetes, hypothyroidism, s/p pacemaker. Patient receives all of his care at [facility]. He had a recent hospitalization and was seen by cardiology at that time for abnormal troponins, likely secondary to acute kidney injury. During that hospitalization, patient was in for gastric outlet obstruction for which we had deemed him a high risk and did not recommend moving forward with surgery as patient was able to tolerate diet. Patient now presents back to the hospital with nausea vomiting and again gastric outlet obstruction. He denies having any chest pain or chest pressure. He states he had abdominal pain yesterday. Patient is seen today in the preop area as he is scheduled for laparoscopic repair of paraesophageal hiatal hernia. EKG atrial paced rhythm CT of the abdomen pelvis without contrast reveals large hiatal hernia with gastric antrum and proximal duodenum in the thorax. There was narrowing of the duodenum as it reenters the thorax likely causing gastric outlet obstruction. Laboratory data: WBC 7.2, hemoglobin 9.3. Sodium 135, potassium 4.7, creatinine 0.87. Troponin 0.043, 0.061, 0.059. proBNP 2260. Current home cardiac medications: Aspirin 81 mg daily, atenolol 50 mg daily and 25 mg at night, lisinopril 10 mg daily, simvastatin 40 mg at bedtime, also on levothyroxine 25 mcg daily. Echocardiogram completed revealing hyperdynamic left ventricle with ejection fraction 80 to 85%, mid cavitary gradient 69 mmHg, 127 mmHg post ectopic beat, no obvious regional wall motion abnormalities, severely elevated right ventricular systolic pressure, RVSP 68.7, mild TR, mild MS, mild MR. REVIEW OF SYSTEMS: At the time of my exam: CONSTITUTIONAL: Denies fever or chills. HEENT: Denies blurred vision, vision changes, or eye pain. Denies hemoptysis CARDIOVASCULAR: Denies chest pain. Denies orthopnea. Denies PND. Denies palpitations RESPIRATORY: Denies shortness of breath. GASTROINTESTINAL: Denies abdominal pain. Reported nausea or vomiting. HEMATOLOGIC: Denies bleeding disorders. GENITOURINARY: Denies any blood in urine. SKIN: Denies pruitis. Denies rash. PHYSICAL EXAM: VITAL SIGNS: Reviewed. Blood pressure 112/59, heart rate 69, pulse ox 98% on 4 L nasal cannula. GENERAL: Well-developed in no acute distress. HEENT: Head is normocephalic. Pupils are equal, round. Sclerae anicteric. Mucous membranes of the mouth are moist. Neck supple. No JVD or thyromegaly LUNGS: Respirations even and unlabored. Lungs essentially clear to auscultation bilaterally. HEART: Regular rate and rhythm. S1 and S2 heard. Systolic murmur noted ABDOMEN: Soft. Nondistended. Nontender. NG tube noted. EXTREMITIES: Normal range of motion. No clubbing or cyanosis. Peripheral pulses intact. No lower extremity edema NEUROLOGIC: Awake and alert. Oriented x 3. ASSESSMENT: Nausea and vomiting Gastric outlet obstruction Abnormal troponins without chest pain, improved from last hospitalization, however high probability for underlying CAD Hypertension Hyperlipidemia Diabetes Hypothyroidism PLAN: No need to repeat echocardiogram Resume patient's home cardiac medications Patient is at high risk for intended surgery, however, at this time, benefits outweigh risk due to recurrence of gastric outlet obstruction. Further recommendations pending patient course Nurse practitioner note has been reviewed by physician. Signing provider agrees with the documented findings, assessment, and plan of care documented by GLASS VIAL FILLER as a scribe. Past Medical History Past Medical History: COPD, Hyperlipidemia, Hypertension Additional Past Medical History / Comment(s): hiatal hernia History of Any Multi-Drug Resistant Organisms: None Reported Past Surgical History: Appendectomy, Back Surgery, Joint Replacement Additional Past Surgical History / Comment(s): nic knees, bowel obstrution Past Anesthesia/Blood Transfusion Reactions: No Reported Reaction Past Psychological History: No Psychological Hx Reported Smoking Status: Former smoker Past Alcohol Use History: None Reported Past Drug Use History: None Reported Medications and Allergies Home Medications Medication Instructions Recorded Confirmed Type Albuterol Sulfate [Albuterol 1 puff INHALATION RT-QID PRN 12/30/23 01/16/24 History Sulfate Hfa] Aspirin EC [Ecotrin Low Dose] 81 mg PO HS 12/30/23 01/16/24 History Fluticasone Propion/Salmeterol 1 puff INHALATION RT-BID 12/30/23 01/16/24 History [Fluticasone-Salmeterol 250-50] Levothyroxine Sodium [Synthroid] 25 mcg PO DAILY 12/30/23 01/16/24 History Simvastatin [Zocor] 40 mg PO HS 12/30/23 01/16/24 History Tiotropium 2.5 Mcg/Puff [Spiriva 2 puff INHALATION RT-DAILY 12/30/23 01/16/24 History Respimat 2.5 Mcg] Niacin [Slo-Niacin] 500 mg PO DAILY #0 01/05/24 01/16/24 Rx Omeprazole 20 mg PO BID #60 tab 01/05/24 01/16/24 Rx lisinopriL [Zestril] 10 mg PO DAILY #30 tab 01/05/24 01/16/24 Rx Cephalexin [Keflex] 500 mg PO Q6HR #40 cap 01/14/24 01/16/24 Rx Sulfamethox-Tmp 800-160Mg [Bactrim 1 tab PO Q12HR #20 tab 01/14/24 01/16/24 Rx DS 800-160 mg] Mupirocin 2% Oint [Bactroban 2% 1 applic TOPICAL TID 01/16/24 01/16/24 History Oint] atenoloL [Tenormin] 25 mg PO HS 01/16/24 01/16/24 History atenoloL [Tenormin] 50 mg PO DAILY 01/16/24 01/16/24 History Allergies Allergy/AdvReac Type Severity Reaction Status Date / Time diazepam [From Valium] Allergy Anaphylaxis Verified 01/17/24 11:59 Physical Exam Vitals: Vital Signs Temp Pulse Resp BP Pulse Ox 01/17/24 12:26 98.1 F 78 18 133/56 96 01/17/24 10:00 67 123/63 98 01/17/24 08:00 68 108/57 95 01/17/24 06:00 63 17 116/62 97 01/17/24 04:00 64 22 106/57 98 01/17/24 03:57 64 16 130/45 96 01/17/24 03:00 65 19 130/76 95 01/17/24 01:59 74 18 130/69 97 01/16/24 19:28 77 18 113/98 01/16/24 16:47 77 20 127/76 95 01/16/24 15:17 99.0 F 83 18 138/65 93 L 01/16/24 14:37 97.9 F 85 18 127/74 92 L Results 01/17/24 02:46 01/17/24 02:46 Cardiac Enzymes 01/16/24 01/16/24 01/17/24 Range/Units 15:41 15:41 03:39 AST 29 (17-59) U/L Troponin I 0.043 H* 0.061 H* (0.000-0.034) ng/mL 01/17/24 Range/Units 09:45 AST (17-59) U/L Troponin I 0.059 H* (0.000-0.034) ng/mL Coagulation 01/16/24 Range/Units 15:41 PT 10.8 (10.0-12.5) sec APTT 21.2 L (22.0-30.0) sec CBC 01/16/24 01/17/24 Range/Units 15:41 02:46 WBC 6.8 7.2 (3.8-10.6) k/uL RBC 4.54 3.88 L (4.30-5.90) m/uL Hgb 13.1 11.3 L (13.0-17.5) gm/dL Hct 40.7 35.5 L (39.0-53.0) % Plt Count 295 230 (150-450) k/uL Comprehensive Metabolic Panel 01/16/24 01/17/24 Range/Units 15:41 02:46 Sodium 136 L 135 L (137-145) mmol/L Potassium 4.5 4.7 (3.5-5.1) mmol/L Chloride 101 102 (98-107) mmol/L Carbon Dioxide 26 29 (22-30) mmol/L BUN 24 H 19 (9-20) mg/dL Creatinine 1.02 0.87 (0.66-1.25) mg/dL Glucose 124 H 102 H (74-99) mg/dL Calcium 9.6 8.8 (8.4-10.2) mg/dL AST 29 (17-59) U/L ALT 26 (4-49) U/L Alkaline Phosphatase 79 (38-126) U/L Total Protein 6.8 (6.3-8.2) g/dL Albumin 3.7 (3.5-5.0) g/dL Current Medications Generic Name Dose Route Start Last Admin Trade Name Freq PRN Reason Stop Dose Admin Albuterol Sulfate 2.5 mg 01/17/24 10:53 Albuterol Nebulized 2.5 Mg/3 Ml INHALATION RT-QID PRN Shortness Of Breath Atenolol 25 mg 01/17/24 21:00 Atenolol 25 Mg Tab PO HS [facility] Atorvastatin Calcium 20 mg 01/17/24 21:00 Atorvastatin 20 Mg Tab PO HS [facility] Budesonide/Formoterol Fumarate 2 puff 01/17/24 20:00 Symbicort 80-4.5 Mcg Inhaler INHALATION RT-BID [facility] Sodium Chloride 1,000 mls @ 75 mls/hr 01/16/24 17:00 01/17/24 05:29 Saline 0.9% IV 75 mls/hr .[id number] [facility] Administration Ipratropium [place] 0.5 mg 01/18/24 08:00 Ipratropium 0.5 Mg/2.5 Ml Nebu INHALATION RT-QID [facility] Levothyroxine Sodium 25 mcg 01/17/24 11:00 01/17/24 11:52 Levothyroxine 25 Mcg Tab PO Not Given DAILY@0630 [facility] Metoprolol Tartrate 50 mg 01/17/24 11:00 01/17/24 11:52 Metoprolol Tartrate 50 Mg Tab PO Not Given DAILY [facility] Morphine Sulfate 4 mg 01/16/24 16:53 01/17/24 00:09 Morphine Sulfate 4 Mg/Ml Syringe IV 4 mg Q4HR PRN Administration Severe Pain (Scale 7 to 10) Naloxone HCl 0.2 mg 01/16/24 16:53 Naloxone 0.4 Mg/Ml 1 Ml Vial IV Q2M PRN Opioid Reversal Niacin 500 mg 01/18/24 09:00 Niacin Tr 500 Mg Caplet PO DAILY [facility] Ondansetron HCl 4 mg 01/16/24 16:53 01/17/24 00:08 Ondansetron 4 Mg/2 Ml Vial IVP 4 mg Q8HR PRN Administration Nausea And Vomiting Pantoprazole Sodium 40 mg 01/16/24 17:00 01/17/24 08:57 Pantoprazole 40 Mg/10 Ml Vial IV 40 mg DAILY YESY Administration 01/17/24 02:46 01/17/24 02:46
[2024-01-17] MEDS: IV FLUID CONTINUATION 1,000 ML IV ONE ×2 (12:57→15:26)
[2024-01-17] MEDS: ONDANSETRON 4 MG/2 ML VIAL IVP ONE (12:58)
[2024-01-17] MEDS: DEXAMETHASONE SOD PHOSPHATE 4 MG/ML 1 ML VIAL IVP ONE (12:58)
[2024-01-17] MEDS: LACTATED RINGERS 1,000 ML IV ONE (12:58)
[2024-01-17] MEDS: ALBUTEROL NEBULIZED 2.5 MG/3 ML INHALATION PRN (12:59)
[2024-01-17] MEDS: SYMBICORT 160-4.5 MCG INHALER INHALATION STA (13:02)
[2024-01-17] MEDS ORDERED: ROCURONIUM 10 MG/ML (5 ML VIAL) IV ONE (13:18)
[2024-01-17] MEDS ORDERED: PHENYLEPHRINE 10 MG/ML VIAL ONE (13:18)
[2024-01-17] MEDS ORDERED: fentaNYL (PF) 50 MCG/ML 2 ML AMP ONE (13:18)
[2024-01-17] MEDS ORDERED: SUCCINYLCHOLINE CHLORIDE 200 MG/10 ML VIAL IV ONE (13:18)
[2024-01-17] MEDS ORDERED: SUGAMMADEX SODIUM 200 MG/2 ML SDV IV ONE (13:18)
[2024-01-17] MEDS ORDERED: PROPOFOL 10 MG/ML 20 ML VIAL IV ONE (13:18)
[2024-01-17] MEDS ORDERED: LIDOCAINE 1% INJ 10MG/ML (20 ML MDV) ONE (13:18)
[2024-01-17] MEDS ORDERED: PHENYLEPHRINE-0.9% NACL SYG 1,000 MCG/10 ML SYRINGE ONE (13:18)
[2024-01-17] MEDS: SODIUM CHLORIDE 0.9% 50 ML with ceFAZolin 2,000 MG IV ONE (13:25)
[2024-01-17] MEDS: LIDOCAINE 1%-EPI 1:100,000 20 ML VIAL SQ ONE (14:05)
--- NOTE | 2024-01-17 14:22 | P.PN ---
Subjective Progress Note Date: 01/17/24 Hospital Course: 88-year-old male with history of COPD on chronic O2 at 4 L, hypertension, dysl ipidemia, multiple other comorbid conditions presented with nausea vomiting. Of note patient was recently admitted on 12/29 to 01/04 with similar symptoms. At that time gastric outlet obstruction resolved with conservative management. Initial plan was to go for a laparoscopic repair of paraesophageal hiatal hernia however due to high risk for surgery, patient decided for close outpatient follow-up instead. In the ED, temperature was 97.9, pulse 85, respiratory rate 18, blood pressure 127/74, saturating at 92% on 4 L. CBC unremarkable, sodium 136, potassium 4.5, BUN 24, creatinine 1.02, glucose 124, lactate 1.4, troponin 0.043, proBNP 2200. Urinalysis negative. EKG shows sinus rhythm with right bundle branch block. CT abdomen pelvis shows large hiatal hernia with gastric antrum and proximal duodenum in the thorax, gastric outlet obstruction similar to 12/30/2023, colonic diverticulosis, right lateral bladder diverticula, prostatic megaly, and cholelithiasis. Patient admitted for persistent nausea and vomiting with gastric outlet obstruction. Surgery consulted. Recommending surgical intervention. Cardiology also consulted due to elevated troponin. Subjective: Seen and examined at bedside. No acute events overnight. Denies any further episodes of vomiting. Pertinent positives and negatives as discussed above, a complete review of systems was performed and all other systems are negative. Vitals Signs Reviewed. General: Nontoxic, no distress, appears at stated age Derm: Warm, dry Head: Atraumatic, normocephalic, symmetric Eyes: EOMI, no lid lag, anicteric sclera Mouth: No lip lesion, mucus membranes moist Cardiovascular: S1S2 reg, no murmur Lungs: CTA bilateral, no rhonchi, no rales, no accessory muscle use, supplemental oxygen Abdominal: Soft, nontender to palpation, no guarding, no appreciable organomegaly Ext: No gross muscle atrophy, no edema, no contractures Neuro: CN II-XI grossly intact, no focal neuro deficits Psych: Alert, oriented, appropriate affect Data Reviewed Today: Pertinent Labs: Hemoglobin 11.3, creatinine 0.87, magnesium 1.8, troponin peaked at 0.061 Imaging: No new imaging Assessment and Plan: Persistent gastric outlet obstruction Nausea vomiting Large hiatal hernia Elevated troponin, likely nonischemic -Case discussed with general surgery, patient remains high risk for surgical intervention -Based on ACS NSQIP risk calculator, he has 8.8% risk of , 29.1% risk of serious complication which includes cardiac, pulmonary, renal, and infectious, 51.9% risk of discharge to rehab facility -Pain control IV morphine as needed, monitor for sedation -Zofran 4 mg IV every 8 hourly as needed for nausea vomiting -Protonix 40 IV daily -Continue normal saline at 75 cc an hour -Cardiology note reviewed, no further testing needed at this time -Continue telemetry monitoring Lower extremity wound/ulcer present on admission -Wound care consult -Related to trauma, no antibiotics recommended Chronic: COPD, not in exacerbation Chronic hypoxic respiratory failure Dyslipidemia Hypertension Hypothyroidism DVT ppx: Patient to undergo surgical intervention Code status: DNR/DNI changed to full code for the procedure Anticipated discharge place: Pending clinical course Anticipated discharge time: Pending clinical course Objective - Vital Signs Vital signs: Vital Signs Temp 98.7 F 01/17/24 12:32 Pulse 69 01/17/24 12:40 Resp 20 01/17/24 12:40 BP 112/59 01/17/24 12:40 Pulse Ox 98 01/17/24 12:40 FiO2 Intake & Output 01/16/24 01/17/24 01/17/24 18:59 06:59 18:59 Intake Total 150 Balance 150 Weight 68.039 kg Intake: IV 150 - Labs CBC & Chem 7: 01/17/24 02:46 01/17/24 02:46 Labs: Abnormal Lab Results - Last 24 Hours (Table) 01/16/24 01/16/24 01/16/24 Range/Units 15:41 15:41 15:41 RBC (4.30-5.90) m/uL Hgb (13.0-17.5) gm/dL Hct (39.0-53.0) % Lymphocytes # 0.7 L (1.0-4.8) k/uL APTT 21.2 L (22.0-30.0) sec Sodium 136 L (137-145) mmol/L BUN 24 H (9-20) mg/dL Glucose 124 H (74-99) mg/dL Troponin I (0.000-0.034) ng/mL Urine Ketones (Negative) 01/16/24 01/16/24 01/17/24 Range/Units 15:41 15:48 02:46 RBC 3.88 L (4.30-5.90) m/uL Hgb 11.3 L (13.0-17.5) gm/dL Hct 35.5 L (39.0-53.0) % Lymphocytes # 0.7 L (1.0-4.8) k/uL APTT (22.0-30.0) sec Sodium (137-145) mmol/L BUN (9-20) mg/dL Glucose (74-99) mg/dL Troponin I 0.043 H* (0.000-0.034) ng/mL Urine Ketones Trace H (Negative) 01/17/24 01/17/24 01/17/24 Range/Units 02:46 03:39 09:45 RBC (4.30-5.90) m/uL Hgb (13.0-17.5) gm/dL Hct (39.0-53.0) % Lymphocytes # (1.0-4.8) k/uL APTT (22.0-30.0) sec Sodium 135 L (137-145) mmol/L BUN (9-20) mg/dL Glucose 102 H (74-99) mg/dL Troponin I 0.061 H* 0.059 H* (0.000-0.034) ng/mL Urine Ketones (Negative)
--- NOTE | 2024-01-17 15:12 | P.OP ---
Date of Procedure: 01/17/24 Preoperative Diagnosis: gastric volvulus Intrathoracic stomach Large paraesophagealhiatal hernia Postoperative Diagnosis: same Procedure(s) Performed: laparoscopic repair of paraesophageal hiatal hernia with mesh Anesthesia: ANDRES Surgeon: Juanpablo Coulter Estimated Blood Loss (ml): 10 Pathology: none sent Condition: stable Disposition: PACU Description of Procedure: mThe patient was placed on the operating table in the supine position. The patient received general anesthesia. And was placed in dorsal lithotomy position. The patient was prepped and draped in the usual sterile fashion. The skin incision sites were anesthetized with 1% local Xylocaine. The skin was incised in the left periumbilical area and then using a blade less 5 mm trocar under direct visualization panel cavity was entered. After adequate insufflation the laparoscope was then placed into the peritoneal cavity. Next a 5 mm trochars placed in the right epigastric position. Another 5 millimeter trocar the right lateral position. Another 5 millimeter trocar in the left late ral position a 5 mm trocar is placed in the left epigastric position. And then the initial 5 mm trocar was exchanged for a 10 mm trocar. The left lateral lobe liver was retracted. The hernia was seen. The patient had a large paraesophageal hiatal hernia. The entire stomach was in the chest. The hernia sac was dissected free and the stomach was reduced. The hiatal hernia sac was completely dissected and the stomach and esophagus was reduced into the peritoneal cavity. The diaphragmatic hernia was repaired using 2-0 Ethibond suture. After the repair a piece of [employer] a mesh was placed over top the repair and secured with 2-0 Ethibond suture. the abdomen was irrigated there is no bleeding seen. The trochars withdrawn. The skin was closed interrupted 3-0 Monocryl suture. Dermabond dressing applied. anesthesia was to determining whether or not the patient will be intubated when he was sent to the recovery room. Due to his chronic pulmonary problems.
[2024-01-17] MEDS: IPRATROPIUM-ALBUTEROL 3 ML NEB INHALATION STA (15:24)
[2024-01-17 16:46] LABS: Glucose,Whole Blood 113 mg/dL (70-110)
--- NOTE | 2024-01-17 17:52 | P.CNPUL ---
History of Present Illness Consult date: 01/17/24 Chief complaint: Repair of the paraesophageal large hiatal hernia History of present illness: This is an 88-year-old male patient was brought into the intensive care unit following his abdominal surgery. The patient had gastric volvulus and a large intrathoracic stomach with a large paraesophageal hiatal hernia that was repaired laparoscopically and the mesh was inserted. Estimated blood loss was 10 cc. The patient was extubated and currently the patient is in the intensive care unit hemodynamically stable on oxygen at 6 L with a pulse ox of 99%. Awake and alert and communicating. Hemodynamically stable. No nausea or vomiting. No abdominal pain. Surgical wound site is dry clean and intact. The blood work shows a WBC count of 7.2 with a hemoglobin 11.3 and a platelet count of 233. The electrolytes are all within normal limits. Free of any chest pain. The preoperative CAT scan of the abdomen and pelvis that was done on this patient showed the above-mentioned findings and the patient also has chronic diverticulosis and the right lateral bladder wall diverticuli and he has also prostate enlargement. Preoperatively, the patient was also seen by cardiology with a cardiac clearance was given. The mild elevation of the troponins were noted. Echocardiogram done on 12/31/2023 showed hyperdynamic heart with an EF above 70% and aortic sclerosis without any stenosis and severe pulmonary hypertension and estimated pulmonary artery systolic pressure of around 68 mmHg. The patient is currently on IV fluids normal saline at a rate of 75 cc an hour. Awake and alert and communicating. No other significant events o Review of Systems Constitutional: Reports as per HPI Eyes: denies as per HPI, denies blurred vision, denies bulging eye, denies decreased vision, denies diplopia, denies discharge, denies dry eye, denies irritation, denies itching, denies pain, denies photophobia, denies loss of peripheral vision, denies loss of vision, denies tunnel vision/blind spots Ears: deny: decreased hearing, ear discharge, earache, tinnitus Ears, nose, mouth and throat: Reports as per HPI Breasts: absent: as per HPI, gynecomastia Cardiovascular: Reports as per HPI Respiratory: Reports as per HPI Gastrointestinal: Reports dyspepsia, Reports nausea, Reports vomiting Genitourinary: Reports as per HPI Musculoskeletal: Reports as per HPI Musculoskeletal: absent: ankle pain, ankle stiffness, ankle swelling Integumentary: Reports as per HPI Neurological: Reports as per HPI Psychiatric: Reports as per HPI Endocrine: Reports as per HPI Hematologic/Lymphatic: Reports as per HPI Allergic/Immunologic: Reports as per HPI Past Medical History Past Medical History: COPD, Hyperlipidemia, Hypertension Additional Past Medical History / Comment(s): hiatal hernia History of Any Multi-Drug Resistant Organisms: None Reported Past Surgical History: Appendectomy, Back Surgery, Joint Replacement Additional Past Surgical History / Comment(s): nic knees, bowel obstrution Past Anesthesia/Blood Transfusion Reactions: No Reported Reaction Past Psychological History: No Psychological Hx Reported Smoking Status: Former smoker Past Alcohol Use History: None Reported Past Drug Use History: None Reported Medications and Allergies Home Medications Medication Instructions Recorded Confirmed Type Albuterol Sulfate [Albuterol 1 puff INHALATION RT-QID PRN 12/30/23 01/16/24 History Sulfate Hfa] Aspirin EC [Ecotrin Low Dose] 81 mg PO HS 12/30/23 01/16/24 History Fluticasone Propion/Salmeterol 1 puff INHALATION RT-BID 12/30/23 01/16/24 History [Fluticasone-Salmeterol 250-50] Levothyroxine Sodium [Synthroid] 25 mcg PO DAILY 12/30/23 01/16/24 History Simvastatin [Zocor] 40 mg PO HS 12/30/23 01/16/24 History Tiotropium 2.5 Mcg/Puff [Spiriva 2 puff INHALATION RT-DAILY 12/30/23 01/16/24 History Respimat 2.5 Mcg] Niacin [Slo-Niacin] 500 mg PO DAILY #0 01/05/24 01/16/24 Rx Omeprazole 20 mg PO BID #60 tab 01/05/24 01/16/24 Rx lisinopriL [Zestril] 10 mg PO DAILY #30 tab 01/05/24 01/16/24 Rx Cephalexin [Keflex] 500 mg PO Q6HR #40 cap 01/14/24 01/16/24 Rx Sulfamethox-Tmp 800-160Mg [Bactrim 1 tab PO Q12HR #20 tab 01/14/24 01/16/24 Rx DS 800-160 mg] Mupirocin 2% Oint [Bactroban 2% 1 applic TOPICAL TID 01/16/24 01/16/24 History Oint] atenoloL [Tenormin] 25 mg PO HS 01/16/24 01/16/24 History atenoloL [Tenormin] 50 mg PO DAILY 01/16/24 01/16/24 History Allergies Allergy/AdvReac Type Severity Reaction Status Date / Time diazepam [From Valium] Allergy Anaphylaxis Verified 01/17/24 11:59 Physical Exam Vitals: Vital Signs Temp Pulse Pulse Resp BP BP Pulse Ox 01/17/24 16:04 78 20 140/63 100 01/17/24 15:50 77 19 137/63 99 01/17/24 15:35 78 18 141/63 99 01/17/24 15:25 88 12 159/71 95 01/17/24 12:40 69 20 112/59 98 01/17/24 12:32 98.7 F 55 L 20 144/58 98 01/17/24 12:26 98.1 F 78 18 133/56 96 01/17/24 10:00 67 123/63 98 01/17/24 08:00 68 108/57 95 01/17/24 06:00 63 17 116/62 97 01/17/24 04:00 64 22 106/57 98 01/17/24 03:57 64 16 130/45 96 01/17/24 03:00 65 19 130/76 95 01/17/24 01:59 74 18 130/69 97 01/16/24 19:28 77 18 113/98 Intake and Output 01/17/24 01/17/24 01/17/24 06:59 14:59 22:59 Intake Total 750 300 Output Total 5 Balance 750 295 Intake: IV 750 300 Output: Estimated Blood Loss 5 General appearance the patient is calm and comfortable, no acute distress currently on 6 L of O2 nasal cannula, awake and alert and communicating Head exam was generally normal. There was no scleral icterus or corneal arcus. Mucous membranes were moist. M neck was supple and without jugular venous distension, thyromegaly, or carotid bruits. Carotids were easily palpable bilaterally. There was no adenopathy. Lungs were clear to auscultation and percussion, and with normal diaphragmatic excursion. No wheezes or rales were noted. Cardiac exam revealed the PMI to be normally situated and sized. The rhythm was regular and no extrasystoles were noted during several minutes of auscultation. The first and second heart sounds were normal and physiologic splitting of the second heart sound was noted. There were no murmurs, rubs, clicks, or gallops. Abdomen is soft and the surgical wound site is dry clean and intact and the patient has no abdominal tenderness no rebound tenderness or guarding. Examination of the extremities revealed easily palpable radial, femoral and pedal pulses. There was no cyanosis, clubbing or edema. Examination of the skin revealed no evidence of significant rashes, suspicious appearing nevi or other concerning lesions. Neurologically, the patient is awake and alert and the patient does not have any focal neurological deficit. Cranial nerves are essentially intact. Results - Laboratory Findings CBC and BMP: 01/17/24 02:46 01/17/24 02:46 PT/INR, D-dimer PT 10.8 sec (10.0-12.5) 01/16/24 15:41 INR 1.0 (<1.2) 01/16/24 15:41 Abnormal lab findings: Abnormal Labs 01/16/24 01/16/24 01/16/24 15:41 15:41 15:41 RBC Hgb Hct Lymphocytes # 0.7 L APTT 21.2 L Sodium 136 L BUN 24 H Glucose 124 H POC Glucose (mg/dL) Troponin I Urine Ketones 01/16/24 01/16/24 01/17/24 15:41 15:48 02:46 RBC 3.88 L Hgb 11.3 L Hct 35.5 L Lymphocytes # 0.7 L APTT Sodium BUN Glucose POC Glucose (mg/dL) Troponin I 0.043 H* Urine Ketones Trace H 01/17/24 01/17/24 01/17/24 02:46 03:39 09:45 RBC Hgb Hct Lymphocytes # APTT Sodium 135 L BUN Glucose 102 H POC Glucose (mg/dL) Troponin I 0.061 H* 0.059 H* Urine Ketones 01/17/24 16:43 RBC Hgb Hct Lymphocytes # APTT Sodium BUN Glucose POC Glucose (mg/dL) 113 H Troponin I Urine Ketones - Diagnostic Findings Chest x-ray: image reviewed Assessment and Plan Plan: Large paraesophageal hiatal hernia/gastric volvulus and the patient has status post laparoscopic repair of a hiatal hernia with mesh and the patient is cu rrently postop day #0 Acute hypoxic respiratory failure currently on 6 L of oxygen by nasal cannula expected outcome of a complicated abdominal surgery COPD with chronic hypoxic respiratory failure maintained on O2 at 4 L/min nasal cannula, the patient has been maintained on a combination of Spiriva and Advair on outpatient basis Gastric ulcer obstruction with symptoms of nausea and emesis, preoperatively Hypertension Hyperlipidemia Hypothyroidism Chronic hypoxic respiratory failure maintain O2 at 4 L/min nasal cannula Plan Titrate FiO2 to maintain saturation above 90% currently on 6 L Provide the patient incentive spirometer Keep n.p.o. for now Normal saline at a rate of 75 cc an hour Possible need for upper GI series within next 24 hours Continue Symbicort Continue [facility] Lovenox 40 mg subcu for DVT prophylaxis to be added Will continue to follow
[2024-01-17] MEDS: SYMBICORT 80-4.5 MCG INHALER INHALATION SCH (20:31)
[2024-01-17] MEDS: atenoloL 25 MG TAB PO SCH (21:41)
[2024-01-17] MEDS: ATORVASTATIN 20 MG TAB PO SCH (21:41)
[2024-01-18 03:42] LABS: Basophils % (A) 0 %; Eosinophils % (A) 0 %; HCT 36.4 % (39.0-53.0); HGB 11.6 gm/dL (13.0-17.5); Lymphocytes # (A) 0.5 k/uL (1.0-4.8); Lymphocytes % (A) 6 %; MCH 28.9 pg (25.0-35.0); MCHC 31.8 g/dL (31.0-37.0); MCV 90.8 fL (80.0-100.0); Mean Platelet Volume 7.5; Monocytes # (A) 0.6 k/uL (0-1.0); Monocytes % (A) 7 %; Neutrophils # (A) 7.5 k/uL (1.3-7.7); Neutrophils % (A) 86 %; Platelet Count 250 k/uL (150-450); RBC 4.01 m/uL (4.30-5.90); RDW 14.8 % (11.5-15.5); WBC 8.7 k/uL (3.8-10.6)
[2024-01-18 03:53] LABS: ALT 40 U/L (4-49); AST 55 U/L (17-59); African American GFR (CKD) >90 (>60 ml/min/1.73 sqM); Albumin 2.8 g/dL (3.5-5.0); Alkaline Phosphatase 67 U/L (38-126); Anion Gap 5 mmol/L; Blood Urea Nitrogen 18 mg/dL (9-20); Calcium 8.8 mg/dL (8.4-10.2); Carbon Dioxide 25 mmol/L (22-30); Chloride 103 mmol/L (98-107); Glucose 102 mg/dL (74-99); Magnesium 1.8 mg/dL (1.6-2.3); Non-African American GFR(CKD) 83 (>60 ml/min/1.73 sqM); Potassium 5.2 mmol/L (3.5-5.1); Sodium 133 mmol/L (137-145); Total Bilirubin 0.9 mg/dL (0.2-1.3); Total Protein 5.6 g/dL (6.3-8.2)
[2024-01-18] MEDS ORDERED: Magnesium Replacement Protocol 1 EACH MISC MISCELLANE PRN (04:00)
[2024-01-18] MEDS: MAGNESIUM SULFATE-D5W PMX 1 GM in DEXTROSE/WATER 1 100ML.BAG IVPB ONE (05:46)
[2024-01-18] MEDS: IPRATROPIUM 0.5 MG/2.5 ML NEBU INHALATION SCH (08:42)
[2024-01-18] MEDS: NIACIN TR 500 MG CAPLET PO SCH (09:11)
--- NOTE | 2024-01-18 10:29 | P.PN ---
Subjective Progress Note Date: 01/18/24 Subjective: Seen and examined at bedside. No acute events overnight. Denies any further episodes of vomiting. He does report that his stomach is sore, has not had a bowel movement yet. Gen: In NAD, non-toxic HEENT: normocephalic, atraumatic, hearing acuity is intant, mucous membranes moist CVS: perfusing all extremities well, no pitting edema, Respiratory: symmetric chest expansion, no accessory muscle use, GI: soft, NTTP, ND, : no suprapubic tenderness, no CVA tenderness MSK/Derm: no rashes, cyanosis Neuro: CN II-XII intact, no motor weakness, Psych: cooperative, euthymic mood, judgment and insight is intact Hospital Course: 88-year-old male with history of COPD on chronic O2 at 4 L, hypertension, dyslipidemia, multiple other comorbid conditions presented with nausea vomiting. Of note patient was recently admitted on 12/29 to 01/04 with similar symptoms. At that time gastric outlet obstruction resolved with conservative management. Initial plan was to go for a laparoscopic repair of paraesophageal hiatal hernia however due to high risk for surgery, patient decided for close outpatient follow-up instead. In the ED, temperature was 97.9, pulse 85, respiratory rate 18, blood pressure 127/74, saturating at 92% on 4 L. CBC unremarkable, sodium 136, potassium 4.5, BUN 24, creatinine 1.02, glucose 124, lactate 1.4, troponin 0.043, proBNP 2200. Urinalysis negative. EKG shows sinus rhythm with right bundle branch block. CT abdomen pelvis shows large hiatal hernia with gastric antrum and proximal duodenum in the thorax, gastric outlet obstruction similar to 12/30/2023, colonic diverticulosis, right lateral bladder diverticula, prostatic megaly, and cholelithiasis. Patient admitted for persistent nausea and vomiting with gastric outlet obstruction. Surgery consulted. Recommending surgical intervention. Cardiology also consulted due to elevated troponin. Assessment and Plan: Persistent gastric outlet obstruction Nausea and vomiting Large hiatal hernia Elevated troponin, likely demand ischemia secondary to Type II NSTEMI -general surgery following -Pain control IV morphine as needed, monitor for sedation -Zofran 4 mg IV every 8 hourly as needed for nausea vomiting -Protonix 40 IV daily -Continue normal saline at 75 cc an hour -Cardiology note reviewed, no further testing needed at this time -Continue telemetry monitoring Lower extremity wound/ulcer present on admission -Wound care consult -Related to trauma, no antibiotics recommended Chronic: COPD, not in exacerbation Chronic hypoxic respiratory failure Dyslipidemia Hypertension Hypothyroidism DVT ppx: Patient to undergo surgical intervention Code status: DNR/DNI changed to full code for the procedure Anticipated discharge place: Pending clinical course Anticipated discharge time: Pending clinical course Objective - Vital Signs Vital signs: Vital Signs Temp 98.1 F 01/18/24 04:00 Pulse 64 01/18/24 08:57 Resp 19 01/18/24 07:00 BP 141/59 01/18/24 07:00 Pulse Ox 97 01/18/24 08:42 FiO2 Intake & Output 01/17/24 01/18/24 01/18/24 18:59 06:59 18:59 Intake Total 1125 900 75 Output Total 5 650 0 Balance 1120 250 75 Weight 68.039 kg 72.1 kg Intake: IV 1125 900 75 Sodium Chloride 0.9% 1, 75 900 75 000 ml @ 75 mls/hr IV . [id number] [facility] Rx#:[id number] Output: Urine 650 0 Estimated Blood Loss 5 Other: Voiding Method External Catheter ABP, PAP, CO, CI - Last Documented Arterial Blood Pressure 105/38 - Labs CBC & Chem 7: 01/18/24 03:15 01/18/24 03:15 Labs: Abnormal Lab Results - Last 24 Hours (Table) 01/17/24 01/17/24 01/18/24 Range/Units 09:45 16:43 03:15 RBC 4.01 L (4.30-5.90) m/uL Hgb 11.6 L (13.0-17.5) gm/dL Hct 36.4 L (39.0-53.0) % Lymphocytes # 0.5 L (1.0-4.8) k/uL Sodium (137-145) mmol/L Potassium (3.5-5.1) mmol/L Glucose (74-99) mg/dL POC Glucose (mg/dL) 113 H (70-110) mg/dL Troponin I 0.059 H* (0.000-0.034) ng/mL Total Protein (6.3-8.2) g/dL Albumin (3.5-5.0) g/dL 01/18/24 Range/Units 03:15 RBC (4.30-5.90) m/uL Hgb (13.0-17.5) gm/dL Hct (39.0-53.0) % Lymphocytes # (1.0-4.8) k/uL Sodium 133 L (137-145) mmol/L Potassium 5.2 H (3.5-5.1) mmol/L Glucose 102 H (74-99) mg/dL POC Glucose (mg/dL) (70-110) mg/dL Troponin I (0.000-0.034) ng/mL Total Protein 5.6 L (6.3-8.2) g/dL Albumin 2.8 L (3.5-5.0) g/dL
--- NOTE | 2024-01-18 11:09 | PN ---
PROGRESS NOTE SUBJECTIVE: Anshul is an 88-year-old gentleman with history of hypertension, dyslipidemia, diabetes, hypothyroidism, status post permanent pacemaker, who was recently admitted to [facility] with gastric outlet obstruction, was found to be high risk for surgery, went home, continued to have issues, came back in with nausea, vomiting, and underwent surgery yesterday. We were consulted because of mild troponin elevation without any chest pain. This morning, the patient appears comfortable at rest. Nausea and vomiting have resolved. OBJECTIVE: GENERAL: Comfortable at rest. VITAL SIGNS: Stable. CHEST: Reveals good air entry bilaterally. HEART: Reveals first and second heart sounds. Systolic murmur at the apex. ABDOMEN: Soft. EXTREMITIES: Did not reveal any edema. Peripheral pulses are felt. LABORATORY DATA: Labs show hemoglobin of 11.6, platelet count is 250, creatinine is 0.7, troponin elevation with probably a type 2 myocardial infarction. ASSESSMENT: 1. Elevated troponin, nausea, vomiting with gastric outlet obstruction. 2. Hypertension. PLAN: I will treat the patient with optimal medical therapy with Lipitor, lopressor. Stop the Tenormin and the patient will need an outpatient stress test and if needed cardiac catheterization if he has significant diary of ischemia. MMODL / IJN: [id number] /
--- NOTE | 2024-01-18 12:13 | P.CONS ---
History of Present Illness - Reason for Consult Consult date: 01/18/24 wound care - History of Present Illness This is an 88-year-old patient being seen in the ICU for a nonhealing ulceration to the left posterior lower extremity. Ulceration happened a few weeks ago while he was hospitalized recently. Patient states that he developed a ulceration to the left lower calf. Ulceration measures approximately 1.5 x 1.5 x 0.2 cm with significant amount of slough and nonviable tissue present. The wound edges are attached to the wound base there is no tunneling or undermining. No granulation noted within the wound bed. At this time there are utilizing bordered foam to the site. Patient's past medical history significant for COPD, hyperlipidemia, hypertension. He is a former smoker denies diabetes. Review Of Systems: Constitutional: No fever, no chills, no night sweats. No weight change. No weakness, fatigue or lethargy. No daytime sleepiness. Integumentary:reports wounds, no lesions. No rash or pruritus. No unusual bruising. No change in hair or nails. Physical exam: General Appearance: Alert, cooperative, no distress, appears stated age. Skin: See HPI all other Skin color, texture, tugor normal, no rashes or lesions. Neurologic: Alert oriented x3 Assessment: 1. Nonhealing ulceration left calf with fat layer exposure Plan: 1.Left posterior lower extremity: Apply honey gel, bordered foam. Change Wednesday. Thank you for the consultation any questions please contact the wound care center DNP note has been reviewed and discussed with Dr. Young and the impression and plan of care has been directed as dictated. Past Medical History Past Medical History: COPD, Hyperlipidemia, Hypertension Additional Past Medical History / Comment(s): hiatal hernia History of Any Multi-Drug Resistant Organisms: None Reported Past Surgical History: Appendectomy, Back Surgery, Joint Replacement Additional Past Surgical History / Comment(s): nic knees, bowel obstrution Past Anesthesia/Blood Transfusion Reactions: No Reported Reaction Past Psychological History: No Psychological Hx Reported Smoking Status: Former smoker Past Alcohol Use History: None Reported Past Drug Use History: None Reported Medications and Allergies Home Medications Medication Instructions Recorded Confirmed Type Albuterol Sulfate [Albuterol 1 puff INHALATION RT-QID PRN 12/30/23 01/16/24 History Sulfate Hfa] Aspirin EC [Ecotrin Low Dose] 81 mg PO HS 12/30/23 01/16/24 History Fluticasone Propion/Salmeterol 1 puff INHALATION RT-BID 12/30/23 01/16/24 History [Fluticasone-Salmeterol 250-50] Levothyroxine Sodium [Synthroid] 25 mcg PO DAILY 12/30/23 01/16/24 History Simvastatin [Zocor] 40 mg PO HS 12/30/23 01/16/24 History Tiotropium 2.5 Mcg/Puff [Spiriva 2 puff INHALATION RT-DAILY 12/30/23 01/16/24 History Respimat 2.5 Mcg] Niacin [Slo-Niacin] 500 mg PO DAILY #0 01/05/24 01/16/24 Rx Omeprazole 20 mg PO BID #60 tab 01/05/24 01/16/24 Rx lisinopriL [Zestril] 10 mg PO DAILY #30 tab 01/05/24 01/16/24 Rx Cephalexin [Keflex] 500 mg PO Q6HR #40 cap 01/14/24 01/16/24 Rx Sulfamethox-Tmp 800-160Mg [Bactrim 1 tab PO Q12HR #20 tab 01/14/24 01/16/24 Rx DS 800-160 mg] Mupirocin 2% Oint [Bactroban 2% 1 applic TOPICAL TID 01/16/24 01/16/24 History Oint] atenoloL [Tenormin] 25 mg PO HS 01/16/24 01/16/24 History atenoloL [Tenormin] 50 mg PO DAILY 01/16/24 01/16/24 History Allergies Allergy/AdvReac Type Severity Reaction Status Date / Time diazepam [From Valium] Allergy Anaphylaxis Verified 01/17/24 11:59 Physical Exam Vitals: Vital Signs Temp Pulse Pulse Resp BP BP Pulse Ox 01/18/24 11:00 72 24 01/18/24 10:00 68 22 132/71 99 01/18/24 09:00 71 15 141/71 98 01/18/24 08:57 64 01/18/24 08:42 68 97 01/18/24 08:00 98.0 F 70 6 L 141/75 98 01/18/24 07:00 69 19 141/59 95 01/18/24 06:00 78 16 106/55 95 01/18/24 05:00 69 14 112/88 94 L 01/18/24 04:00 98.1 F 71 17 147/86 96 01/18/24 03:00 76 21 119/81 94 L 01/18/24 02:00 68 18 111/64 94 L 01/18/24 01:00 73 18 137/68 95 01/18/24 00:00 97.8 F 73 22 126/66 95 01/17/24 23:00 73 18 108/67 95 01/17/24 22:00 73 19 139/61 93 L 01/17/24 21:00 73 14 123/55 97 01/17/24 20:00 97.6 F 74 18 135/71 95 01/17/24 19:00 70 28 H 127/60 93 L 01/17/24 18:00 73 21 137/70 96 01/17/24 17:00 78 17 91 L 01/17/24 16:43 98.3 F 145/88 93 L 01/17/24 16:04 78 20 140/63 100 01/17/24 15:50 77 19 137/63 99 01/17/24 15:35 78 18 141/63 99 01/17/24 15:25 88 12 159/71 95 01/17/24 12:40 69 20 112/59 98 01/17/24 12:32 98.7 F 55 L 20 144/58 98 01/17/24 12:26 98.1 F 78 18 133/56 96 Intake and Output 01/17/24 01/18/24 01/18/24 22:59 06:59 14:59 Intake Total 675 600 300 Output Total 275 380 0 Balance 400 220 300 Intake: IV 675 600 300 Sodium Chloride 0.9% 1, 375 600 300 000 ml @ 75 mls/hr IV . [id number] [facility] Rx#:[id number] Output: Urine 270 380 0 Estimated Blood Loss 5 Other: Voiding Method External Catheter External Catheter External Catheter # Voids 0 Weight 68.039 kg 72.1 kg Results CBC & Chem 7: 01/18/24 03:15 01/18/24 03:15 Labs: Abnormal Lab Results - Last 24 Hours (Table) 01/17/24 01/18/24 01/18/24 Range/Units 16:43 03:15 03:15 RBC 4.01 L (4.30-5.90) m/uL Hgb 11.6 L (13.0-17.5) gm/dL Hct 36.4 L (39.0-53.0) % Lymphocytes # 0.5 L (1.0-4.8) k/uL Sodium 133 L (137-145) mmol/L Potassium 5.2 H (3.5-5.1) mmol/L Glucose 102 H (74-99) mg/dL POC Glucose (mg/dL) 113 H (70-110) mg/dL Total Protein 5.6 L (6.3-8.2) g/dL Albumin 2.8 L (3.5-5.0) g/dL Assessment and Plan (1) Non-pressure chronic ulcer of left calf with fat layer exposed Current Visit: Yes Status: Acute Code(s): L97.222 - NON-PRESSURE CHRONIC ULCER OF LEFT CALF W FAT LAYER EXPOSED SNOMED Code(s): 34945719374673158
--- NOTE | 2024-01-18 12:14 | P.PN ---
Subjective Progress Note Date: 01/18/24 CHIEF COMPLAINT: Gastric Volvulus HISTORY OF PRESENT ILLNESS: Patient postop day #1 status post laparoscopic repair of paraesophageal hiatal hernia with mesh. Patient is sitting up at bedside chair. He reports his pain is controlled. Denies any nausea or vomiting. Denies any acid reflux. Afebrile. WBC is 8.7 Hgb 11.6 platelets 250 sodium is 133 potassium is 5.2 creatinine 0.73 albumin 2.8 morphine did drop patient's blood pressure a little. Patient is currently in the ICU. PHYSICAL EXAM: VITAL SIGNS: Reviewed. GENERAL: Well-developed in no acute distress. ABDOMEN: Soft. Nondistended. Nontender. Incision sites clean dry and intact NEUROLOGIC: Alert and oriented. Cranial nerves II through XII grossly intact. ASSESSMENT: 1. Gastric volvulus, Intrathoracic stomach, Large paraesophageal hiatal hernia PLAN: -Start Mary clear liquid diet -Start [place] for oral pain medication -Patient can be transferred out of the ICU -Increase activity level -Encourage patient to use incentive spirometer -Continue IV fluids -Repeat potassium level in a.m. -GI prophylaxis Protonix and DVT prophylaxis subcu heparin Physician Banana Room Cutter note has been reviewed by physician. Signing provider agrees with the documented findings, assessment, and plan of care. Objective - Vital Signs Vital signs: Vital Signs Temp 98.0 F 01/18/24 08:00 Pulse 72 01/18/24 11:00 Resp 24 01/18/24 11:00 BP 132/71 01/18/24 10:00 Pulse Ox 99 01/18/24 10:00 FiO2 Intake & Output 01/17/24 01/18/24 01/18/24 18:59 06:59 18:59 Intake Total 1125 900 300 Output Total 5 650 0 Balance 1120 250 300 Weight 68.039 kg 72.1 kg Intake: IV 1125 900 300 Sodium Chloride 0.9% 1, 75 900 300 000 ml @ 75 mls/hr IV . [id number] [facility] Rx#:[id number] Output: Urine 650 0 Estimated Blood Loss 5 Other: Voiding Method External Catheter External Catheter # Voids 0 ABP, PAP, CO, CI - Last Documented Arterial Blood Pressure 105/38 - Labs CBC & Chem 7: 01/18/24 03:15 01/18/24 03:15 Labs: Abnormal Lab Results - Last 24 Hours (Table) 01/17/24 01/18/24 01/18/24 Range/Units 16:43 03:15 03:15 RBC 4.01 L (4.30-5.90) m/uL Hgb 11.6 L (13.0-17.5) gm/dL Hct 36.4 L (39.0-53.0) % Lymphocytes # 0.5 L (1.0-4.8) k/uL Sodium 133 L (137-145) mmol/L Potassium 5.2 H (3.5-5.1) mmol/L Glucose 102 H (74-99) mg/dL POC Glucose (mg/dL) 113 H (70-110) mg/dL Total Protein 5.6 L (6.3-8.2) g/dL Albumin 2.8 L (3.5-5.0) g/dL
[2024-01-18] MEDS: HYDROcodone/APAP 5-325MG 1 EACH TAB PO PRN (12:31)
--- NOTE | 2024-01-18 14:38 | P.PN ---
Subjective Progress Note Date: 01/18/24 This is an 88-year-old male patient was brought into the intensive care unit following his abdominal surgery. The patient had gastric volvulus and a large intrathoracic stomach with a large paraesophageal hiatal hernia that was repaired laparoscopically and the mesh was inserted. Estimated blood loss was 10 cc. The patient was extubated and currently the patient is in the intensive care unit hemodynamically stable on oxygen at 6 L with a pulse ox of 99%. Awake and alert and communicating. Hemodynamically stable. No nausea or vomiting. No abdominal pain. Surgical wound site is dry clean and intact. The blood work shows a WBC count of 7.2 with a hemoglobin 11.3 and a platelet count of 233. The electrolytes are all within normal limits. Free of any chest pain. The preoperative CAT scan of the abdomen and pelvis that was done on this patient showed the above-mentioned findings and the patient also has chronic diverticulosis and the right lateral bladder wall diverticuli and he has also prostate enlargement. Preoperatively, the patient was also seen by cardiology with a cardiac clearance was given. The mild elevation of the troponins were noted. Echocardiogram done on 12/31/2023 showed hyperdynamic heart with an EF above 70% and aortic sclerosis without any stenosis and severe pulmonary hypertension and estimated pulmonary artery systolic pressure of around 68 mmHg. The patient is currently on IV fluids normal saline at a rate of 75 cc an hour. Awake and alert and communicating. No other significant events 24, the patient is being seen for a follow-up. Patient is doing well. No specific complaints. The patient is currently postop day #1. The patient underwent a repair of a large paraesophageal hiatal hernia. He remains n.p.o. this morning. No nausea or vomiting. No significant abdominal pain. Clinically stable and hemodynamically stable. Hemoglobin is at 11.6 with a white cell count of 8.7. The patient has a sodium level of 133, BUN is 18 with a creatinine of 0.73 and oxygenation is also stable and the patient is currently on 4 L of oxygen by nasal cannula with a pulse ox of 99%. He is requiring morphine for blood pressure control. He did encounter some lower blood pressure with the use of morphine and the patient will be switched to Shipman for pain control. Objective - Vital Signs Vital signs: Vital Signs Temp 98.1 F 01/18/24 04:00 Pulse 64 01/18/24 08:57 Resp 19 01/18/24 07:00 BP 141/59 01/18/24 07:00 Pulse Ox 97 01/18/24 08:42 FiO2 Intake & Output 01/17/24 01/18/24 01/18/24 18:59 06:59 18:59 Intake Total 1125 900 75 Output Total 5 650 0 Balance 1120 250 75 Weight 68.039 kg 72.1 kg Intake: IV 1125 900 75 Sodium Chloride 0.9% 1, 75 900 75 000 ml @ 75 mls/hr IV . [id number] [facility] Rx#:[id number] Output: Urine 650 0 Estimated Blood Loss 5 Other: Voiding Method External Catheter ABP, PAP, CO, CI - Last Documented Arterial Blood Pressure 105/38 - Exam General appearance the patient is calm and comfortable, no acute distress currently on 4 L of O2 nasal cannula, awake and alert and communicating Head exam was generally normal. There was no scleral icterus or corneal arcus. Mucous membranes were moist. M neck was supple and without jugular venous distension, thyromegaly, or carotid bruits. Carotids were easily palpable bilaterally. There was no adenopathy. Lungs were clear to auscultation and percussion, and with normal diaphragmatic excursion. No wheezes or rales were noted. Cardiac exam revealed the PMI to be normally situated and sized. The rhythm was regular and no extrasystoles were noted during several minutes of auscultation. The first and second heart sounds were normal and physiologic splitting of the second heart sound was noted. There were no murmurs, rubs, clicks, or gallops. Abdomen is soft and the surgical wound site is dry clean and intact and the patient has no abdominal tenderness no rebound tenderness or guarding. Examination of the extremities revealed easily palpable radial, femoral and pedal pulses. There was no cyanosis, clubbing or edema. Examination of the skin revealed no evidence of significant rashes, suspicious appearing nevi or other concerning lesions. Neurologically, the patient is awake and alert and the patient does not have any focal neurological deficit. Cranial nerves are essentially intact. - Labs CBC & Chem 7: 01/18/24 03:15 01/18/24 03:15 Labs: Abnormal Lab Results - Last 24 Hours (Table) 01/17/24 01/17/24 01/18/24 Range/Units 09:45 16:43 03:15 RBC 4.01 L (4.30-5.90) m/uL Hgb 11.6 L (13.0-17.5) gm/dL Hct 36.4 L (39.0-53.0) % Lymphocytes # 0.5 L (1.0-4.8) k/uL Sodium (137-145) mmol/L Potassium (3.5-5.1) mmol/L Glucose (74-99) mg/dL POC Glucose (mg/dL) 113 H (70-110) mg/dL Troponin I 0.059 H* (0.000-0.034) ng/mL Total Protein (6.3-8.2) g/dL Albumin (3.5-5.0) g/dL 01/18/24 Range/Units 03:15 RBC (4.30-5.90) m/uL Hgb (13.0-17.5) gm/dL Hct (39.0-53.0) % Lymphocytes # (1.0-4.8) k/uL Sodium 133 L (137-145) mmol/L Potassium 5.2 H (3.5-5.1) mmol/L Glucose 102 H (74-99) mg/dL POC Glucose (mg/dL) (70-110) mg/dL Troponin I (0.000-0.034) ng/mL Total Protein 5.6 L (6.3-8.2) g/dL Albumin 2.8 L (3.5-5.0) g/dL Assessment and Plan Plan: Large paraesophageal hiatal hernia/gastric volvulus and the patient has status post laparoscopic repair of a hiatal hernia with mesh and the patient is currently postop day #1 Acute hypoxic respiratory failure currently on 4 L of oxygen by nasal cannula expected outcome of a complicated abdominal surgery COPD with chronic hypoxic respiratory failure maintained on O2 at 4 L/min nasal cannula, the patient has been maintained on a combination of Spiriva and Advair on outpatient basis Gastric ulcer obstruction with symptoms of nausea and emesis, preoperatively Hypertension Hyperlipidemia Hypothyroidism Chronic hypoxic respiratory failure maintain O2 at 4 L/min nasal cannula Plan Titrate FiO2 to maintain saturation above 90% currently on 4 liters of oxygen by nasal cannula Provide the patient incentive spirometer Will gradually advance diet as tolerated Discontinue the morphine and use Shipman for pain control Normal saline at a rate of 75 cc an hour Increase mobility Continue Symbicort Continue Brayden [facility] Lovenox 40 mg subcu for DVT prophylaxis to be added Will continue to follow Should be able to transfer to medical surgical floor.
[2024-01-18] MEDS: HEPARIN SODIUM,PORCINE 5,000 UNIT/ML 1 ML VIAL SQ SCH (20:11)
--- NOTE | 2024-01-19 11:15 | P.PN ---
Subjective HISTORY OF PRESENT ILLNESS: This is a 88-year-old male with a past medical history significant for hypertension, hyperlipidemia, diabetes, hypothyroidism, s/p pacemaker. Patient receives all of his care at [place]. He had a recent hospitalization and was seen by cardiology at that time for abnormal troponins, likely secondary to acute kidney injury. During that hospitalization, patient was in for gastric outlet obstruction for which we had deemed him a high risk and did not recommend moving forward with surgery as patient was able to tolerate diet. Patient now presents back to the hospital with nausea vomiting and again gastric outlet obstruction. He denies having any chest pain or chest pressure. He states he had abdominal pain yesterday. Patient is seen today in the preop area as he is scheduled for laparoscopic repair of paraesophageal hiatal hernia. EKG atrial paced rhythm CT of the abdomen pelvis without contrast reveals large hiatal hernia with gastric antrum and proximal duodenum in the thorax. There was narrowing of the duodenum as it reenters the thorax likely causing gastric outlet obstruction. Laboratory data: WBC 7.2, hemoglobin 9.3. Sodium 135, potassium 4.7, creatinine 0.87. Troponin 0.043, 0.061, 0.059. proBNP 2260. Current home cardiac medications: Aspirin 81 mg daily, atenolol 50 mg daily and 25 mg at night, lisinopril 10 mg daily, simvastatin 40 mg at bedtime, also on levothyroxine 25 mcg daily. Echocardiogram completed revealing hyperdynamic left ventricle with ejection fraction 80 to 85%, mid cavitary gradient 69 mmHg, 127 mmHg post ectopic beat, no obvious regional wall motion abnormalities, severely elevated right ventricular systolic pressure, RVSP 68.7, mild TR, mild MS, mild MR. 01/19/2024 Patient examined this morning. Patient is sitting up in the chair. Patient currently denies chest pain or pressure. He denies shortness of breath. He does report having a productive cough this morning. He is tolerating oral intake. Vital signs are stable. PHYSICAL EXAM: VITAL SIGNS: Reviewed. GENERAL: Well-developed in no acute distress. NECK: Supple. No JVD or thyromegaly LUNGS: Respirations even and unlabored. Lungs essentially clear to auscultation bilaterally. HEART: Regular rate and rhythm. S1 and S2 heard. Systolic murmur noted EXTREMITIES: Normal range of motion. No clubbing or cyanosis. Peripheral pulses intact. No lower extremity edema ASSESSMENT: Nausea and vomiting Gastric outlet obstruction, status post laparoscopic repair of paraesophageal hiatal hernia with mesh Abnormal troponins without chest pain, improved from last hospitalization, however high probability for underlying CAD Hypertension Hyperlipidemia Diabetes Hypothyroidism PLAN: Patient currently taking metoprolol and atenolol. Discontinue metoprolol. Continue with atenolol 50 mg in the morning and 25 mg at night Continue additional cardiac medications Patient is currently stable from a cardiac standpoint Further recommendations pending patient course Nurse practitioner note has been reviewed by physician. Signing provider agrees with the documented findings, assessment, and plan of care documented by MEDIA RELATIONS SPECIALIST as a scribe. Objective - Vital Signs Vital signs: Vital Signs Temp 97.6 F 01/19/24 06:59 Pulse 76 01/19/24 07:59 Resp 19 01/19/24 06:59 BP 162/80 01/19/24 06:59 Pulse Ox 92 L 01/19/24 07:45 FiO2 Intake & Output 01/18/24 01/19/24 01/19/24 18:59 06:59 18:59 Intake Total 750 Output Total 550 600 Balance 200 -600 Weight 69.5 kg Intake: IV 300 Sodium Chloride 0.9% 1, 300 000 ml @ 75 mls/hr IV . [id number] [facility] Rx#:[id number] Oral 450 Output: Urine 550 600 Other: Voiding Method External Catheter External Catheter # Voids 0 ABP, PAP, CO, CI - Last Documented Arterial Blood Pressure 105/38 - Labs CBC & Chem 7: 01/18/24 03:15 01/18/24 03:15
--- NOTE | 2024-01-19 12:07 | P.PN ---
Subjective Progress Note Date: 01/19/24 CHIEF COMPLAINT: Gastric Volvulus HISTORY OF PRESENT ILLNESS: Patient postop day #2 status post laparoscopic repair of paraesophageal hiatal hernia with mesh. Patient is sitting up at bedside chair. He reports his pain is controlled. Denies any nausea or vomiting. Having flatus. Does have a mild cough with phlegm. Afebrile. WBC 8.7 PHYSICAL EXAM: VITAL SIGNS: Reviewed. GENERAL: Well-developed in no acute distress. ABDOMEN: Soft. Nondistended. Nontender. Incision sites clean dry and intact NEUROLOGIC: Alert and oriented. Cranial nerves II through XII grossly intact. ASSESSMENT: 1. Gastric volvulus, Intrathoracic stomach, Large paraesophageal hiatal hernia PLAN: -Patient can be discharged from surgical standpoint -Continue full liquid diet for 2 weeks -Encourage patient to increase activity level -GI prophylaxis Protonix and DVT prophylaxis subcu heparin Physician Clay Mixer note has been reviewed by physician. Signing provider agrees with the documented findings, assessment, and plan of care. Objective - Vital Signs Vital signs: Vital Signs Temp 97.6 F 01/19/24 06:59 Pulse 76 01/19/24 11:25 Resp 19 01/19/24 06:59 BP 162/80 01/19/24 06:59 Pulse Ox 92 L 01/19/24 07:45 FiO2 Intake & Output 01/18/24 01/19/24 01/19/24 18:59 06:59 18:59 Intake Total 750 Output Total 550 600 Balance 200 -600 Weight 69.5 kg Intake: IV 300 Sodium Chloride 0.9% 1, 300 000 ml @ 75 mls/hr IV . [id number] [facility] Rx#:[id number] Oral 450 Output: Urine 550 600 Other: Voiding Method External Catheter External Catheter # Voids 0 ABP, PAP, CO, CI - Last Documented Arterial Blood Pressure 105/38 - Labs CBC & Chem 7: 01/18/24 03:15 01/18/24 03:15
--- NOTE | 2024-01-19 13:17 | P.DS ---
Providers Date of admission: 01/16/24 16:53 Expected date of discharge: 01/19/24 Attending physician: Les Stern MD Consults: 01/16/24 16:53 Consult Physician Routine Consulting Provider: Juanpablo Coulter Consult Reason/Comments: known Do you want consulting provider notified?: Yes 01/17/24 11:17 Consult Physician Routine Consulting Provider: Jose Prieto Consult Reason/Comments: pt known gastric outlet obstruction Do you want consulting provider notified?: Yes 01/17/24 17:49 Consult Physician Routine Consulting Provider: Filipe Sun Consult Reason/Comments: gastric outlet obstruction s/p surgery Do you want consulting provider notified?: Yes Primary care physician: [facility] Hospital Course: Persistent gastric outlet obstruction Nausea and vomiting Large hiatal hernia Elevated troponin, likely demand ischemia secondary to Type II NSTEMI Lower extremity wound/ulcer present on admission COPD, not in exacerbation Chronic hypoxic respiratory failure Dyslipidemia Hypertension Hypothyroidism Gen: In NAD, non-toxic HEENT: normocephalic, atraumatic, hearing acuity is intant, mucous membranes moist CVS: perfusing all extremities well, no pitting edema, Respiratory: symmetric chest expansion, no accessory muscle use, GI: soft, NTTP, ND, : no suprapubic tenderness, no CVA tenderness MSK/Derm: no rashes, cyanosis Neuro: CN II-XII intact, no motor weakness, Psych: cooperative, euthymic mood, judgment and insight is intact Hospital Course: 88-year-old male with history of COPD on chronic O2 at 4 L, hypertension, dyslipidemia, multiple other comorbid conditions presented with nausea vomiting. Of note patient was recently admitted on 12/29 to 01/04 with similar symptoms. At that time gastric outlet obstruction resolved with conservative management. Initial plan was to go for a laparoscopic repair of paraesophageal hiatal hernia however due to high risk for surgery, patient decided for close outpatient follow-up instead. In the ED, temperature was 97.9, pulse 85, respiratory rate 18, blood pressure 127/74, saturating at 92% on 4 L. CBC unremarkable, sodium 136, potassium 4.5, BUN 24, creatinine 1.02, glucose 124, lactate 1.4, troponin 0.043, proBNP 2200. Urinalysis negative. EKG shows sinus rhythm with right bundle branch block. CT abdomen pelvis shows large hiatal hernia with gastric antrum and proximal duodenum in the thorax, gastric outlet obstruction similar to 12/30/2023, colonic diverticulosis, right lateral bladder diverticula, prostatic megaly, and cholelithiasis. Patient admitted for persistent nausea and vomiting with gastric outlet obstruction. Surgery consulted. Recommending surgical intervention. Cardiology also consulted due to elevated troponin. Pt underwent successful laparoscopic repair of gastric outlet obstruction and hiatal hernia following cardiology clearance. Pt discharged home with full liquid diet for 2 weeks, he will f/u with PCP and surgery. I spent 38 min coordinating this discharge Patient Condition at Discharge: Good Plan - Discharge Summary Discharge Rx Participant: No New Discharge Prescriptions: New HYDROcodone/APAP 5-325MG [Clemons 5-325] 1 tab PO Q6HR PRN 3 Days #12 tab PRN Reason: Pain Continue Tiotropium 2.5 Mcg/Puff [Spiriva Respimat 2.5 Mcg] 2 puff INHALATION RT-DAILY Fluticasone Propion/Salmeterol [Fluticasone-Salmeterol 250-50] 1 puff INHALATION RT-BID Levothyroxine Sodium [Synthroid] 25 mcg PO DAILY Aspirin EC [Ecotrin Low Dose] 81 mg PO HS lisinopriL [Zestril] 10 mg PO DAILY #30 tab Omeprazole 20 mg PO BID #60 tab Mupirocin 2% Oint [Bactroban 2% Oint] 1 applic TOPICAL TID Albuterol Sulfate [Albuterol Sulfate Hfa] 1 puff INHALATION RT-QID PRN PRN Reason: Shortness Of Breath Simvastatin [Zocor] 40 mg PO HS Niacin [Slo-Niacin] 500 mg PO DAILY #0 atenoloL [Tenormin] 50 mg PO DAILY atenoloL [Tenormin] 25 mg PO HS Discontinued Sulfamethox-Tmp 800-160Mg [Bactrim DS 800-160 mg] 1 tab PO Q12HR #20 tab Cephalexin [Keflex] 500 mg PO Q6HR #40 cap Discharge Medication List Albuterol Sulfate [Albuterol Sulfate Hfa] 1 puff INHALATION RT-QID PRN 12/30/23 [History] Aspirin EC [Ecotrin Low Dose] 81 mg PO HS 12/30/23 [History] Fluticasone Propion/Salmeterol [Fluticasone-Salmeterol 250-50] 1 puff INHALATION RT-BID 12/30/23 [History] Levothyroxine Sodium [Synthroid] 25 mcg PO DAILY 12/30/23 [History] Simvastatin [Zocor] 40 mg PO HS 12/30/23 [History] Tiotropium 2.5 Mcg/Puff [Spiriva Respimat 2.5 Mcg] 2 puff INHALATION RT-DAILY 12/30/23 [History] Niacin [Slo-Niacin] 500 mg PO DAILY #0 01/05/24 [Rx] Omeprazole 20 mg PO BID #60 tab 01/05/24 [Rx] lisinopriL [Zestril] 10 mg PO DAILY #30 tab 01/05/24 [Rx] Mupirocin 2% Oint [Bactroban 2% Oint] 1 applic TOPICAL TID 01/16/24 [History] atenoloL [Tenormin] 25 mg PO HS 01/16/24 [History] atenoloL [Tenormin] 50 mg PO DAILY 01/16/24 [History] HYDROcodone/APAP 5-325MG [Clemons 5-325] 1 tab PO Q6HR PRN 3 Days #12 tab 01/19/24 [Rx] Follow up Appointment(s)/Referral(s): [facility] [NON-STAFF] - 1 Week (Residential homecare will call you to arrange a visit) [facility]Clinic [Primary Care Provider] - 1-2 days Juanpablo Coulter MD [STAFF PHYSICIAN] - 1 Week Activity/Diet/Wound Care/Special Instructions: Patient needs to stay on a full liquid diet for 2 weeks Discharge Disposition: HOME SELF-CARE
[2024-01-19 14:41] LABS: African American GFR (CKD) >90 (>60 ml/min/1.73 sqM); Anion Gap 5 mmol/L; Blood Urea Nitrogen 17 mg/dL (9-20); Carbon Dioxide 29 mmol/L (22-30); Chloride 96 mmol/L (98-107); Glucose 118 mg/dL (74-99); Non-African American GFR(CKD) 83 (>60 ml/min/1.73 sqM); Potassium 5.1 mmol/L (3.5-5.1); Sodium 130 mmol/L (137-145)
--- NOTE | 2024-01-19 15:59 | P.PN ---
Subjective Progress Note Date: 01/19/24 This is an 88-year-old male patient was brought into the intensive care unit following his abdominal surgery. The patient had gastric volvulus and a large intrathoracic stomach with a large paraesophageal hiatal hernia that was repaired laparoscopically and the mesh was inserted. Estimated blood loss was 10 cc. The patient was extubated and currently the patient is in the intensive care unit hemodynamically stable on oxygen at 6 L with a pulse ox of 99%. Awake and alert and communicating. Hemodynamically stable. No nausea or vomiting. No abdominal pain. Surgical wound site is dry clean and intact. The blood work shows a WBC count of 7.2 with a hemoglobin 11.3 and a platelet count of 233. The electrolytes are all within normal limits. Free of any chest pain. The preoperative CAT scan of the abdomen and pelvis that was done on this patient showed the above-mentioned findings and the patient also has chronic diverticulosis and the right lateral bladder wall diverticuli and he has also prostate enlargement. Preoperatively, the patient was also seen by cardiology with a cardiac clearance was given. The mild elevation of the troponins were noted. Echocardiogram done on 12/31/2023 showed hyperdynamic heart with an EF above 70% and aortic sclerosis without any stenosis and severe pulmonary hypertension and estimated pulmonary artery systolic pressure of around 68 mmHg. The patient is currently on IV fluids normal saline at a rate of 75 cc an hour. Awake and alert and communicating. No other significant events 24, the patient is being seen for a follow-up. Patient is doing well. No specific complaints. The patient is currently postop day #1. The patient underwent a repair of a large paraesophageal hiatal hernia. He remains n.p.o. this morning. No nausea or vomiting. No significant abdominal pain. Clinically stable and hemodynamically stable. Hemoglobin is at 11.6 with a white cell count of 8.7. The patient has a sodium level of 133, BUN is 18 with a creatinine of 0.73 and oxygenation is also stable and the patient is currently on 4 L of oxygen by nasal cannula with a pulse ox of 99%. He is requiring morphine for blood pressure control. He did encounter some lower blood pressure with the use of morphine and the patient will be switched to Gary for pain control. On 01/19/2024, the patient is tolerating oatmeal. Passing flatus. No nausea or emesis. No chest pain. No shortness of breath. Remains on oxygen 4 L/min nasal cannula pulse ox of 98%. Electrolytes are all within normal limits. Sodium is at 130 with a BUN of 17 and a creatinine of 0.7. Surgical wound site over the anterior abdominal wall is dry clean and intact. No altered mentation. No respiratory distress. Clinically stable. Objective - Vital Signs Vital signs: Vital Signs Temp 97.6 F 01/19/24 06:59 Pulse 80 01/19/24 11:17 Resp 19 01/19/24 06:59 BP 162/80 01/19/24 06:59 Pulse Ox 92 L 01/19/24 07:45 FiO2 Intake & Output 01/18/24 01/19/24 01/19/24 18:59 06:59 18:59 Intake Total 750 Output Total 550 600 Balance 200 -600 Weight 69.5 kg Intake: IV 300 Sodium Chloride 0.9% 1, 300 000 ml @ 75 mls/hr IV . [id number] [facility] Rx#:[id number] Oral 450 Output: Urine 550 600 Other: Voiding Method External Catheter External Catheter # Voids 0 ABP, PAP, CO, CI - Last Documented Arterial Blood Pressure 105/38 - Exam General appearance the patient is calm and comfortable, no acute distress currently on 4 L of O2 nasal cannula, awake and alert and communicating Head exam was generally normal. There was no scleral icterus or corneal arcus. Mucous membranes were moist. M neck was supple and without jugular venous distension, thyromegaly, or carotid bruits. Carotids were easily palpable bilaterally. There was no adenopathy. Lungs were clear to auscultation and percussion, and with normal diaphragmatic excursion. No wheezes or rales were noted. Cardiac exam revealed the PMI to be normally situated and sized. The rhythm was regular and no extrasystoles were noted during several minutes of auscultation. The first and second heart sounds were normal and physiologic splitting of the second heart sound was noted. There were no murmurs, rubs, clicks, or gallops. Abdomen is soft and the surgical wound site is dry clean and intact and the patient has no abdominal tenderness no rebound tenderness or guarding. Examination of the extremities revealed easily palpable radial, femoral and pedal pulses. There was no cyanosis, clubbing or edema. Examination of the skin revealed no evidence of significant rashes, suspicious appearing nevi or other concerning lesions. Neurologically, the patient is awake and alert and the patient does not have any focal neurological deficit. Cranial nerves are essentially intact. - Labs CBC & Chem 7: 01/18/24 03:15 01/19/24 12:27 Assessment and Plan Plan: Large paraesophageal hiatal hernia/gastric volvulus and the patient has status post laparoscopic repair of a hiatal hernia with mesh and the patient is currently postop day # 2. Tolerating diet. Acute hypoxic respiratory failure currently on 4 L of oxygen by nasal cannula expected outcome of a complicated abdominal surgery COPD with chronic hypoxic respiratory failure maintained on O2 at 4 L/min nasal cannula, the patient has been maintained on a combination of Spiriva and Advair on outpatient basis Gastric ulcer obstruction with symptoms of nausea and emesis, preoperatively Hypertension Hyperlipidemia Hypothyroidism Chronic hypoxic respiratory failure maintain O2 at 4 L/min nasal cannula Plan Titrate FiO2 to maintain saturation above 90% currently on 4 liters of oxygen by nasal cannula Continue using incentive spirometer Will gradually advance diet as tolerated Gary for pain control Change IV fluids to KVO Increase mobility Continue Symbicort Continue Brayden berger Lovenox 40 mg subcu for DVT prophylaxis to be added Possible discharge within next 24 hours.
[2024-01-20 08:18] VITALS: BP 151/85; RESP 18; TEMP 96.4
[2024-01-20] MEDS: atenoloL 50 MG TAB PO SCH (10:05)
[2024-01-20 10:12] VITALS: PULSE 80
[2024-01-20 10:55] LABS: Blood Urea Nitrogen 12.4 mg/dL (9.0-27.0); Calcium 9.4 mg/dL (8.7-10.3); Carbon Dioxide 31.3 mmol/L (21.6-31.8); Chloride 94 mmol/L (96-109); Glucose 112 mg/dL (70-110); Magnesium 1.9 mg/dL (1.5-2.4); Potassium 4.6 mmol/L (3.5-5.5); Sodium 134 mmol/L (135-145)
--- NOTE | 2024-01-20 11:34 | P.DS ---
Providers Date of admission: 01/16/24 16:53 Expected date of discharge: 01/20/24 Attending physician: Les Stern MD Consults: 01/16/24 16:53 Consult Physician Routine Consulting Provider: Juanpablo Coulter Consult Reason/Comments: known Do you want consulting provider notified?: Yes 01/17/24 11:17 Consult Physician Routine Consulting Provider: Jose Prieto Consult Reason/Comments: pt known gastric outlet obstruction Do you want consulting provider notified?: Yes 01/17/24 17:49 Consult Physician Routine Consulting Provider: Filipe Sun Consult Reason/Comments: gastric outlet obstruction s/p surgery Do you want consulting provider notified?: Yes Primary care physician: [facility] Hospital Course: Persistent gastric outlet obstruction Nausea and vomiting Large hiatal hernia Elevated troponin, likely demand ischemia secondary to Type II NSTEMI Lower extremity wound/ulcer present on admission COPD, not in exacerbation Chronic hypoxic respiratory failure Dyslipidemia Hypertension Hypothyroidism Gen: In NAD, non-toxic HEENT: normocephalic, atraumatic, hearing acuity is intant, mucous membranes moist CVS: perfusing all extremities well, no pitting edema, Respiratory: symmetric chest expansion, no accessory muscle use, GI: soft, NTTP, ND, : no suprapubic tenderness, no CVA tenderness MSK/Derm: no rashes, cyanosis Neuro: CN II-XII intact, no motor weakness, Psych: cooperative, euthymic mood, judgment and insight is intact Hospital Course: 88-year-old male with history of COPD on chronic O2 at 4 L, hypertension, dyslipidemia, multiple other comorbid conditions presented with nausea vomiting. Of note patient was recently admitted on 12/29 to 01/04 with similar symptoms. At that time gastric outlet obstruction resolved with conservative management. Initial plan was to go for a laparoscopic repair of paraesophageal hiatal hernia however due to high risk for surgery, patient decided for close outpatient follow-up instead. In the ED, temperature was 97.9, pulse 85, respiratory rate 18, blood pressure 127/74, saturating at 92% on 4 L. CBC unremarkable, sodium 136, potassium 4.5, BUN 24, creatinine 1.02, glucose 124, lactate 1.4, troponin 0.043, proBNP 2200. Urinalysis negative. EKG shows sinus rhythm with right bundle branch block. CT abdomen pelvis shows large hiatal hernia with gastric antrum and proximal duodenum in the thorax, gastric outlet obstruction similar to 12/30/2023, colonic diverticulosis, right lateral bladder diverticula, prostatic megaly, and cholelithiasis. Patient admitted for persistent nausea and vomiting with gastric outlet obstruction. Surgery consulted. Recommending surgical intervention. Cardiology also consulted due to elevated troponin. Pt underwent successful laparoscopic repair of gastric outlet obstruction and hiatal hernia following cardiology clearance. Pt discharged home with full liquid diet for 2 weeks, he will f/u with PCP and surgery. Patient's discharge was delayed for 24 hours because patient was still feeling weak following surgery. Patient was seen by physical therapy yesterday and did quite well. He has more comfortable with going home today. He will remain on full liquid diet for 2 weeks as stated previously, and will follow-up with general surgery. I spent 38 min coordinating this discharge Patient Condition at Discharge: Good Plan - Discharge Summary Discharge Rx Participant: No New Discharge Prescriptions: New HYDROcodone/APAP 5-325MG [[place] 5-325] 1 tab PO Q6HR PRN 3 Days #12 tab PRN Reason: Pain Continue Tiotropium 2.5 Mcg/Puff [Spiriva Respimat 2.5 Mcg] 2 puff INHALATION RT-DAILY Fluticasone Propion/Salmeterol [Fluticasone-Salmeterol 250-50] 1 puff INHALATION RT-BID Levothyroxine Sodium [Synthroid] 25 mcg PO DAILY Aspirin EC [Ecotrin Low Dose] 81 mg PO HS lisinopriL [Zestril] 10 mg PO DAILY #30 tab Omeprazole 20 mg PO BID #60 tab Mupirocin 2% Oint [Bactroban 2% Oint] 1 applic TOPICAL TID Albuterol Sulfate [Albuterol Sulfate Hfa] 1 puff INHALATION RT-QID PRN PRN Reason: Shortness Of Breath Simvastatin [Zocor] 40 mg PO HS Niacin [Slo-Niacin] 500 mg PO DAILY #0 atenoloL [Tenormin] 50 mg PO DAILY atenoloL [Tenormin] 25 mg PO HS Discontinued Sulfamethox-Tmp 800-160Mg [Bactrim DS 800-160 mg] 1 tab PO Q12HR #20 tab Cephalexin [Keflex] 500 mg PO Q6HR #40 cap Discharge Medication List Albuterol Sulfate [Albuterol Sulfate Hfa] 1 puff INHALATION RT-QID PRN 12/30/23 [History] Aspirin EC [Ecotrin Low Dose] 81 mg PO HS 12/30/23 [History] Fluticasone Propion/Salmeterol [Fluticasone-Salmeterol 250-50] 1 puff INHALATION RT-BID 12/30/23 [History] Levothyroxine Sodium [Synthroid] 25 mcg PO DAILY 12/30/23 [History] Simvastatin [Zocor] 40 mg PO HS 12/30/23 [History] Tiotropium 2.5 Mcg/Puff [Spiriva Respimat 2.5 Mcg] 2 puff INHALATION RT-DAILY 12/30/23 [History] Niacin [Slo-Niacin] 500 mg PO DAILY #0 01/05/24 [Rx] Omeprazole 20 mg PO BID #60 tab 01/05/24 [Rx] lisinopriL [Zestril] 10 mg PO DAILY #30 tab 01/05/24 [Rx] Mupirocin 2% Oint [Bactroban 2% Oint] 1 applic TOPICAL TID 01/16/24 [History] atenoloL [Tenormin] 25 mg PO HS 01/16/24 [History] atenoloL [Tenormin] 50 mg PO DAILY 01/16/24 [History] HYDROcodone/APAP 5-325MG [[place] 5-325] 1 tab PO Q6HR PRN 3 Days #12 tab 01/19/24 [Rx] Follow up Appointment(s)/Referral(s): [facility] [NON-STA[facility]] - 1 Week ([facility] will call you to arrange a visit) [facility] [Primary Care Provider] - 1-2 days (Office is not answering at time of discharge. Please call for follow-up appointment.) Juanpablo Coulter MD [STAFF PHYSICIAN] - 01/27/24 3:10 pm () Patient Instructions/Handouts: Hiatal Hernia (DC) Activity/Diet/Wound Care/Special Instructions: Patient needs to stay on a full liquid diet for 2 weeks Discharge Disposition: HOME SELF-CARE
--- NOTE | 2024-01-20 12:50 | P.PN ---
Subjective HISTORY OF PRESENT ILLNESS: This is a 88-year-old male with a past medical history significant for hypertension, hyperlipidemia, diabetes, hypothyroidism, s/p pacemaker. Patient receives all of his care at [facility]. He had a recent hospitalization and was seen by cardiology at that time for abnormal troponins, likely secondary to acute kidney injury. During that hospitalization, patient was in for gastric outlet obstruction for which we had deemed him a high risk and did not recommend moving forward with surgery as patient was able to tolerate diet. Patient now presents back to the hospital with nausea vomiting and again gastric outlet obstruction. He denies having any chest pain or chest pressure. He states he had abdominal pain yesterday. Patient is seen today in the preop area as he is scheduled for laparoscopic repair of paraesophageal hiatal hernia. EKG atrial paced rhythm CT of the abdomen pelvis without contrast reveals large hiatal hernia with gastric antrum and proximal duodenum in the thorax. There was narrowing of the duodenum as it reenters the thorax likely causing gastric outlet obstruction. Laboratory data: WBC 7.2, hemoglobin 9.3. Sodium 135, potassium 4.7, creatinine 0.87. Troponin 0.043, 0.061, 0.059. proBNP 2260. Current home cardiac medications: Aspirin 81 mg daily, atenolol 50 mg daily and 25 mg at night, lisinopril 10 mg daily, simvastatin 40 mg at bedtime, also on levothyroxine 25 mcg daily. Echocardiogram completed revealing hyperdynamic left ventricle with ejection fraction 80 to 85%, mid cavitary gradient 69 mmHg, 127 mmHg post ectopic beat, no obvious regional wall motion abnormalities, severely elevated right ventricular systolic pressure, RVSP 68.7, mild TR, mild MS, mild MR. 01/19/2024 Patient examined this morning. Patient is sitting up in the chair. Patient currently denies chest pain or pressure. He denies shortness of breath. He does report having a productive cough this morning. He is tolerating oral intake. Vital signs are stable. 01/20/2024 Patient examined this morning at the bedside. Patient currently denies chest pain or pressure. He denies shortness of breath. Vital signs are stable. PHYSICAL EXAM: VITAL SIGNS: Reviewed. GENERAL: Well-developed in no acute distress. NECK: Supple. No JVD or thyromegaly LUNGS: Respirations even and unlabored. Lungs essentially clear to auscultation bilaterally. HEART: Regular rate and rhythm. S1 and S2 heard. Systolic murmur noted EXTREMITIES: Normal range of motion. No clubbing or cyanosis. Peripheral puls es intact. No lower extremity edema ASSESSMENT: Nausea and vomiting Gastric outlet obstruction, status post laparoscopic repair of paraesophageal hiatal hernia with mesh Abnormal troponins without chest pain, improved from last hospitalization, however high probability for underlying CAD Hypertension Hyperlipidemia Diabetes Hypothyroidism PLAN: Continue current cardiac medications Patient is currently stable from a cardiac standpoint Patient to follow-up postdischarge in the office Nurse practitioner note has been reviewed by physician. Signing provider agrees with the documented findings, assessment, and plan of care documented by [employer] as a scribe. Objective - Vital Signs Vital signs: Vital Signs Temp 96.4 F L 01/20/24 07:23 Pulse 80 01/20/24 09:27 Resp 18 01/20/24 07:23 BP 151/85 01/20/24 07:23 Pulse Ox 97 01/20/24 07:23 FiO2 Intake & Output 01/19/24 01/20/24 01/20/24 18:59 06:59 18:59 Output Total 400 600 Balance -400 -600 Weight 65.8 kg Output: Urine 400 600 Other: # Voids 1 ABP, PAP, CO, CI - Last Documented Arterial Blood Pressure 105/38 - Labs CBC & Chem 7: 01/18/24 03:15 01/20/24 06:10 Labs: Abnormal Lab Results - Last 24 Hours (Table) 01/19/24 Range/Units 12:27 Sodium 130 L (137-145) mmol/L Chloride 96 L (98-107) mmol/L Glucose 118 H (74-99) mg/dL
--- NOTE | 2024-01-20 16:37 | P.PN ---
Subjective Progress Note Date: 01/20/24 This is an 88-year-old male patient was brought into the intensive care unit following his abdominal surgery. The patient had gastric volvulus and a large intrathoracic stomach with a large paraesophageal hiatal hernia that was repaired laparoscopically and the mesh was inserted. Estimated blood loss was 10 cc. The patient was extubated and currently the patient is in the intensive care unit hemodynamically stable on oxygen at 6 L with a pulse ox of 99%. Awake and alert and communicating. Hemodynamically stable. No nausea or vomiting. No abdominal pain. Surgical wound site is dry clean and intact. The blood work shows a WBC count of 7.2 with a hemoglobin 11.3 and a platelet count of 233. The electrolytes are all within normal limits. Free of any chest pain. The preoperative CAT scan of the abdomen and pelvis that was done on this patient showed the above-mentioned findings and the patient also has chronic diverticulosis and the right lateral bladder wall diverticuli and he has also prostate enlargement. Preoperatively, the patient was also seen by cardiology with a cardiac clearance was given. The mild elevation of the troponins were noted. Echocardiogram done on 12/31/2023 showed hyperdynamic heart with an EF above 70% and aortic sclerosis without any stenosis and severe pulmonary hypertension and estimated pulmonary artery systolic pressure of around 68 mmHg. The patient is currently on IV fluids normal saline at a rate of 75 cc an hour. Awake and alert and communicating. No other significant events 24, the patient is being seen for a follow-up. Patient is doing well. No specific complaints. The patient is currently postop day #1. The patient underwent a repair of a large paraesophageal hiatal hernia. He remains n.p.o. this morning. No nausea or vomiting. No significant abdominal pain. Clinically stable and hemodynamically stable. Hemoglobin is at 11.6 with a white cell count of 8.7. The patient has a sodium level of 133, BUN is 18 with a creatinine of 0.73 and oxygenation is also stable and the patient is currently on 4 L of oxygen by nasal cannula with a pulse ox of 99%. He is requiring morphine for blood pressure control. He did encounter some lower blood pressure with the use of morphine and the patient will be switched to [place] for pain control. On 01/19/2024, the patient is tolerating oatmeal. Passing flatus. No nausea or emesis. No chest pain. No shortness of breath. Remains on oxygen 4 L/min nasal cannula pulse ox of 98%. Electrolytes are all within normal limits. Sodium is at 130 with a BUN of 17 and a creatinine of 0.7. Surgical wound site over the anterior abdominal wall is dry clean and intact. No altered mentation. No respiratory distress. Clinically stable. On 01/19/2022, the patient is being seen for a follow-up. Doing extremely well. No specific complaints. Right. No chest pain. Electrolytes are all within normal limits. Ambulating. Currently the patient is calm and comfortable. Remains on full liquid diet for the next 2 weeks and this will be gradually advanced. No other complaints otherwise for now. Objective - Vital Signs Vital signs: Vital Signs Temp 96.4 F L 01/20/24 07:23 Pulse 80 01/20/24 09:27 Resp 18 01/20/24 07:23 BP 151/85 01/20/24 07:23 Pulse Ox 97 01/20/24 07:23 FiO2 Intake & Output 01/19/24 01/20/24 01/20/24 18:59 06:59 18:59 Output Total 400 600 Balance -400 -600 Weight 65.8 kg Output: Urine 400 600 Other: Voiding Method Toilet # Voids 1 ABP, PAP, CO, CI - Last Documented Arterial Blood Pressure 105/38 - Exam General appearance the patient is calm and comfortable, no acute distress currently on 4 L of O2 nasal cannula, awake and alert and communicating Head exam was generally normal. There was no scleral icterus or corneal arcus. Mucous membranes were moist. M neck was supple and without jugular venous distension, thyromegaly, or carotid bruits. Carotids were easily palpable bilaterally. There was no adenopathy. Lungs were clear to auscultation and percussion, and with normal diaphragmatic excursion. No wheezes or rales were noted. Cardiac exam revealed the PMI to be normally situated and sized. The rhythm was regular and no extrasystoles were noted during several minutes of auscultation. The first and second heart sounds were normal and physiologic splitting of the second heart sound was noted. There were no murmurs, rubs, clicks, or gallops. Abdomen is soft and the surgical wound site is dry clean and intact and the patient has no abdominal tenderness no rebound tenderness or guarding. Examination of the extremities revealed easily palpable radial, femoral and pedal pulses. There was no cyanosis, clubbing or edema. Examination of the skin revealed no evidence of significant rashes, suspicious appearing nevi or other concerning lesions. Neurologically, the patient is awake and alert and the patient does not have any focal neurological deficit. Cranial nerves are essentially intact. - Labs CBC & Chem 7: 01/18/24 03:15 01/20/24 06:10 Labs: Abnormal Lab Results - Last 24 Hours (Table) 01/20/24 Range/Units 06:10 Sodium 134 L (135-145) mmol/L Chloride 94 L (96-109) mmol/L Glucose 112 H (70-110) mg/dL Assessment and Plan Plan: Large paraesophageal hiatal hernia/gastric volvulus and the patient has status post laparoscopic repair of a hiatal hernia with mesh and the patient is currently postop day # 3. Tolerating diet. Acute hypoxic respiratory failure currently on 4 L of oxygen by nasal cannula expected outcome of a complicated abdominal surgery COPD with chronic hypoxic respiratory failure maintained on O2 at 4 L/min nasal cannula, the patient has been maintained on a combination of Spiriva and Advair on outpatient basis Gastric ulcer obstruction with symptoms of nausea and emesis, preoperatively Hypertension Hyperlipidemia Hypothyroidism Chronic hypoxic respiratory failure maintain O2 at 4 L/min nasal cannula Plan Titrate FiO2 to maintain saturation above 90% currently on 4 liters of oxygen by nasal cannula Continue using incentive spirometer Will gradually advance diet as tolerated [place] for pain control Continue Spiriva Continue Symbicort Continue DuoNeb updrafts Continue O2 therapy Liquid diet for the next 2 weeks and gradually advance diet as tolerated Possibly home today
== END 2024-01-20 15:23 | disposition home or self-care (01) | DRG 326 ==
LOC: EC 14:34 → 3SCARD 16:53 → 2SICU 01-17 14:58 → 4SSUR 01-18 18:48
PROVIDERS: ADMIT Internal Medicine; ATTEND Internal Medicine
PROC: 4A133B1 Monitoring of Arterial Pressure, Peripheral, Percutaneous Approach (ICD-10-PCS; principal; 2024-01-17 14:10)
PROC: 03HY32Z Insertion of Monitoring Device into Upper Artery, Percutaneous Approach (ICD-10-PCS; principal; 2024-01-17 14:10)
PROC: 4A133J1 Monitoring of Arterial Pulse, Peripheral, Percutaneous Approach (ICD-10-PCS; principal; 2024-01-17 14:10)
PROC: 0BUT4JZ Supplement Diaphragm with Synthetic Substitute, Percutaneous Endoscopic Approach (ICD-10-PCS; principal; 2024-01-17 14:10)
DX: K44.9 Diaphragmatic hernia without obstruction or gangrene (principal); I21.A1 Myocardial infarction type 2; K56.2 Volvulus; J96.21 Acute and chronic respiratory failure with hypoxia; K31.1 Adult hypertrophic pyloric stenosis; L97.222 Non-pressure chronic ulcer of left calf with fat layer exposed; E03.9 Hypothyroidism, unspecified; E11.9 Type 2 diabetes mellitus without complications; E78.5 Hyperlipidemia, unspecified; I10 Essential (primary) hypertension; I27.20 Pulmonary hypertension, unspecified; I45.10 Unspecified right bundle-branch block; I70.0 Atherosclerosis of aorta; J44.9 Chronic obstructive pulmonary disease, unspecified; K31.89 Other diseases of stomach and duodenum; K57.30 Diverticulosis of large intestine without perforation or abscess without bleeding; N40.0 Benign prostatic hyperplasia without lower urinary tract symptoms; K80.20 Calculus of gallbladder without cholecystitis without obstruction; Z99.81 Dependence on supplemental oxygen; Z96.653 Presence of artificial knee joint, bilateral; Z79.82 Long term (current) use of aspirin; Z79.890 Hormone replacement therapy; Z79.899 Other long term (current) drug therapy; Z88.8 Allergy status to other drugs, medicaments and biological substances; Z95.0 Presence of cardiac pacemaker
CPT/HCPCS: 36415; 74176; 80048; 80053; 81003; 83605; 83690; 83735; 83880; 84100; 84484; 85025; 85610; 85730; 86850; 86900; 86901; 93005; 94640; 94760; 96361; 96374; 96375; 96376; 99291

== ENCOUNTER 2024-01-27 19:50 | Observation (INO) | payer OTHER, MEDICARE ==
--- NOTE | 2024-01-27 20:55 | ED ---
Male Urogenital HPI - General Source: patient, EMS Mode of arrival: EMS Limitations: no limitations <Christina Tuttle - Last Filed: 01/27/24 20:54> <Teo Mei - Last Filed: 01/28/24 02:41> - General Chief complaint: Urogenital Stated complaint: Unable to urinate post op Time Seen by Provider: 01/27/24 20:54 - History of Present Illness Initial comments: Quick note: 88-year-old male presenting with chief complaint of urinary retention and generalized weakness. Patient had hiatal hernia repair on 01/[address] Coulter. States that today he has been unable to urinate. He also has not been able to have a normal bowel movement, but states that whenever he moves he does have liquid stool that leaks. He has been getting progressively weaker for few days. He had an appointment with Dr. Coulter today but was unable to make it due to his weakness, he was brought here by EMS. (Christina Tuttle) - Related Data Home Medications Medication Instructions Recorded Confirmed Albuterol Sulfate [Albuterol 1 puff INHALATION RT-QID PRN 12/30/23 01/16/24 Sulfate Hfa] Aspirin EC [Ecotrin Low Dose] 81 mg PO HS 12/30/23 01/16/24 Fluticasone Propion/Salmeterol 1 puff INHALATION RT-BID 12/30/23 01/16/24 [Fluticasone-Salmeterol 250-50] Levothyroxine Sodium [Synthroid] 25 mcg PO DAILY 12/30/23 01/16/24 Simvastatin [Zocor] 40 mg PO HS 12/30/23 01/16/24 Tiotropium 2.5 Mcg/Puff [Spiriva 2 puff INHALATION RT-DAILY 12/30/23 01/16/24 Respimat 2.5 Mcg] Mupirocin 2% Oint [Bactroban 2% 1 applic TOPICAL TID 01/16/24 01/16/24 Oint] atenoloL [Tenormin] 25 mg PO HS 01/16/24 01/16/24 atenoloL [Tenormin] 50 mg PO DAILY 01/16/24 01/16/24 Previous Rx's Medication Instructions Recorded Niacin [Slo-Niacin] 500 mg PO DAILY #0 01/05/24 Omeprazole 20 mg PO BID #60 tab 01/05/24 lisinopriL [Zestril] 10 mg PO DAILY #30 tab 01/05/24 HYDROcodone/APAP 5-325MG [[place] 1 tab PO Q6HR PRN 3 Days #12 tab 01/19/24 5-325] Allergies Allergy/AdvReac Type Severity Reaction Status Date / Time diazepam [From Valium] Allergy Anaphylaxis Verified 01/27/24 20:00 Review of Systems ROS Other: All systems not noted in ROS Statement are negative. <Christina Tuttle - Last Filed: 01/27/24 20:54> ROS Other: All systems not noted in ROS Statement are negative. Constitutional: Reports: weakness. Denies: fever, chills Respiratory: Reports: dyspnea (Chronic). Denies: cough, wheezes Cardiovascular: Denies: chest pain, palpitations, edema Gastrointestinal: Reports: abdominal pain, constipation. Denies: nausea, vomiting, diarrhea, melena, hematochezia Genitourinary: Reports: other (Urinary retention). Denies: dysuria, frequency, testicular pain Musculoskeletal: Denies: back pain Skin: Denies: rash Neurological: Denies: headache, weakness, numbness <Teo Mei - Last Filed: 01/28/24 02:41> ROS Statement: Those systems with pertinent positive or pertinent negative responses have been documented in the HPI. Past Medical History Past Medical History: COPD, Hyperlipidemia, Hypertension Additional Past Medical History / Comment(s): hiatal hernia History of Any Multi-Drug Resistant Organisms: None Reported Past Surgical History: Appendectomy, Back Surgery, Hernia Repair, Joint Replacement Additional Past Surgical History / Comment(s): nic knees, bowel obstrution Past Anesthesia/Blood Transfusion Reactions: No Reported Reaction Past Psychological History: No Psychological Hx Reported Smoking Status: Former smoker Past Alcohol Use History: None Reported Past Drug Use History: None Reported <Christina Tuttle - Last Filed: 01/27/24 20:54> General Exam Limitations: no limitations <Christina Tuttle - Last Filed: 01/27/24 20:54> Limitations: no limitations General appearance: alert, in no apparent distress Head exam: Present: atraumatic, normocephalic Eye exam: Present: normal appearance. Absent: scleral icterus, conjunctival injection ENT exam: Present: mucous membranes dry Neck exam: Present: normal inspection Respiratory exam: Present: wheezes (Mild expiratory wheeze). Absent: respiratory distress, rales, rhonchi, stridor, accessory muscle use Cardiovascular Exam: Present: regular rate, normal rhythm, normal heart sounds. Absent: systolic murmur, diastolic murmur, rubs, gallop GI/Abdominal exam: Present: soft. Absent: distended, tenderness, guarding, r ebound, rigid, mass, pulsatile mass, hernia Rectal exam: Present: normal inspection, normal rectal tone, fecal impaction. Absent: mass, tenderness Extremities exam: Present: normal inspection, normal capillary refill. Absent: pedal edema, calf tenderness Back exam: Present: normal inspection. Absent: CVA tenderness (R), CVA tenderness (L) Neurological exam: Present: alert Skin exam: Present: warm, dry, intact, normal color. Absent: rash <Teo Mei - Last Filed: 01/28/24 02:41> - General Exam Comments Initial Comments: Visual Physical Exam Vital signs reviewed General: Well-appearing, nontoxic, no acute distress. Head: Normocephalic, atraumatic Eyes: PERRLA, EOMI ENT: Airway patent Chest: Nonlabored breathing Skin: No visual rash, normal skin tone Neuro: Alert and oriented 3 Musculoskeletal: No gross abnormalities (Christina Tuttle) Course Vital Signs 01/27/24 01/28/24 19:52 02:32 Temperature 98.2 F Pulse Rate 87 85 Respiratory 20 22 Rate Blood Pressure 152/70 149/83 O2 Sat by Pulse 99 95 Oximetry Procedures - Rectal Disimpaction Consent Obtained: verbal consent Indication: fecal impaction Procedural Sedation: No Sedation/Analgesia: none Technique: manual disimpaction with gloved finger Result: significant stool output Complications: none Patient Tolerated Procedure: well <Teo Mei - Last Filed: 01/28/24 02:41> Medical Decision Making <Christina Tuttle - Last Filed: 01/27/24 20:54> - Lab Data Result diagrams: 01/27/24 21:24 01/27/24 21:24 - EKG Data -: EKG Interpreted by Ri EKG shows normal: sinus rhythm, axis (Normal), intervals (QRS duration is 138 ms, prolonged consistent with right bundle branch block. OH interval 193 ms, QTc 450 ms, both normal.), QRS complexes (There is a right bundle branch block. Left posterior fascicular block), ST-T waves (Normal) Rate: normal (Rate 86 bpm) <Teo Mei - Last Filed: 01/28/24 02:41> - Medical Decision Making I performed the quick note portion of this visit, electronically signed Christina Tuttle PA-C (Christina Tuttle) This patient is an 88-year-old man who is here to have evaluation for generalized weakness, for some abdominal pain and constipation and for inability to urinate. On exam patient did have fecal impaction. I did perform manual disimpaction and this was followed by 2 enemas which did result in passage of large amount of stool. The patient then was still not able to urinate and fully empty bladder his postvoid residual was in the neighborhood of 430 mL, therefore Man catheter placed and leg bag affixed. At that point we felt the patient may be able to go home but we are informed that he is out of his oxygen. He is COPD and dependent on his 4 L nasal cannula. Therefore patient will be admitted to fix the home oxygen situation. (Teo Mei) - Lab Data Lab Results 01/27/24 01/27/24 01/27/24 Range/Units 21:24 21:24 21:24 WBC 8.0 (3.8-10.6) k/uL RBC 4.06 L (4.30-5.90) m/uL Hgb 11.9 L (13.0-17.5) gm/dL Hct 36.8 L (39.0-53.0) % MCV 90.8 (80.0-100.0) fL MCH 29.3 (25.0-35.0) pg MCHC 32.3 (31.0-37.0) g/dL RDW 15.1 (11.5-15.5) % Plt Count 220 (150-450) k/uL MPV 7.5 Neutrophils % 83 % Lymphocytes % 8 % Monocytes % 6 % Eosinophils % 1 % Basophils % 0 % Neutrophils # 6.6 (1.3-7.7) k/uL Lymphocytes # 0.7 L (1.0-4.8) k/uL Monocytes # 0.5 (0-1.0) k/uL Eosinophils # 0.1 (0-0.7) k/uL Basophils # 0.0 (0-0.2) k/uL PT 10.9 (10.0-12.5) sec INR 1.0 (<1.2) APTT 21.8 L (22.0-30.0) sec Sodium 130 L (137-145) mmol/L Potassium 4.5 (3.5-5.1) mmol/L Chloride 97 L (98-107) mmol/L Carbon Dioxide 30 (22-30) mmol/L Anion Gap 3 mmol/L BUN 29 H (9-20) mg/dL Creatinine 0.68 (0.66-1.25) mg/dL Est GFR (CKD-EPI)AfAm >90 (>60 ml/min/1.73 sqM) Est GFR (CKD-EPI)NonAf 86 (>60 ml/min/1.73 sqM) Glucose 145 H (74-99) mg/dL Plasma Lactic Acid Mariusz (0.7-2.0) mmol/L Calcium 9.2 (8.4-10.2) mg/dL Magnesium 1.6 (1.6-2.3) mg/dL Total Bilirubin 1.3 (0.2-1.3) mg/dL AST 34 (17-59) U/L ALT 30 (4-49) U/L Alkaline Phosphatase 86 (38-126) U/L Total Protein 6.4 (6.3-8.2) g/dL Albumin 3.6 (3.5-5.0) g/dL Urine Color Urine Appearance (Clear) Urine pH (5.0-8.0) Ur Specific [place] (1.001-1.035) Urine Protein (Negative) Urine Glucose (UA) (Negative) Urine Ketones (Negative) Urine Blood (Negative) Urine Nitrite (Negative) Urine Bilirubin (Negative) Urine Urobilinogen (<2.0) mg/dL Ur Leukocyte Esterase (Negative) 01/27/24 01/28/24 Range/Units 21:24 01:50 WBC (3.8-10.6) k/uL RBC (4.30-5.90) m/uL Hgb (13.0-17.5) gm/dL Hct (39.0-53.0) % MCV (80.0-100.0) fL MCH (25.0-35.0) pg MCHC (31.0-37.0) g/dL RDW (11.5-15.5) % Plt Count (150-450) k/uL MPV Neutrophils % % Lymphocytes % % Monocytes % % Eosinophils % % Basophils % % Neutrophils # (1.3-7.7) k/uL Lymphocytes # (1.0-4.8) k/uL Monocytes # (0-1.0) k/uL Eosinophils # (0-0.7) k/uL Basophils # (0-0.2) k/uL PT (10.0-12.5) sec INR (<1.2) APTT (22.0-30.0) sec Sodium (137-145) mmol/L Potassium (3.5-5.1) mmol/L Chloride (98-107) mmol/L Carbon Dioxide (22-30) mmol/L Anion Gap mmol/L BUN (9-20) mg/dL Creatinine (0.66-1.25) mg/dL Est GFR (CKD-EPI)AfAm (>60 ml/min/1.73 sqM) Est GFR (CKD-EPI)NonAf (>60 ml/min/1.73 sqM) Glucose (74-99) mg/dL Plasma Lactic Acid Mariusz 1.0 (0.7-2.0) mmol/L Calcium (8.4-10.2) mg/dL Magnesium (1.6-2.3) mg/dL Total Bilirubin (0.2-1.3) mg/dL AST (17-59) U/L ALT (4-49) U/L Alkaline Phosphatase (38-126) U/L Total Protein (6.3-8.2) g/dL Albumin (3.5-5.0) g/dL Urine Color Yellow Urine Appearance Clear (Clear) Urine pH 6.5 (5.0-8.0) Ur Specific [place] 1.016 (1.001-1.035) Urine Protein Negative (Negative) Urine Glucose (UA) Negative (Negative) Urine Ketones Negative (Negative) Urine Blood Negative (Negative) Urine Nitrite Negative (Negative) Urine Bilirubin Negative (Negative) Urine Urobilinogen 4.0 (<2.0) mg/dL Ur Leukocyte Esterase Negative (Negative) Disposition <Christina Tuttle - Last Filed: 01/27/24 20:54> Is patient prescribed a controlled substance at d/c from ED?: No <Teo Mei - Last Filed: 01/28/24 02:41> Clinical Impression: Constipation, Urinary retention, COPD (chronic obstructive pulmonary disease) Disposition: ADMITTED IP TO THIS HOSP Condition: Good Instructions (If sedation given, give patient instructions): Constipation (DC), Urinary Retention in Men (ED) Referrals: [facility],Clinic [Primary Care Provider] - 1-2 days Ramon Epperson MD [STAFF PHYSICIAN] - 1-2 days
[2024-01-27 21:31] LABS: Basophils % (A) 0 %; Eosinophils # (A) 0.1 k/uL (0-0.7); Eosinophils % (A) 1 %; HCT 36.8 % (39.0-53.0); HGB 11.9 gm/dL (13.0-17.5); Lymphocytes # (A) 0.7 k/uL (1.0-4.8); Lymphocytes % (A) 8 %; MCH 29.3 pg (25.0-35.0); MCHC 32.3 g/dL (31.0-37.0); MCV 90.8 fL (80.0-100.0); Mean Platelet Volume 7.5; Monocytes # (A) 0.5 k/uL (0-1.0); Monocytes % (A) 6 %; Neutrophils # (A) 6.6 k/uL (1.3-7.7); Neutrophils % (A) 83 %; Platelet Count 220 k/uL (150-450); RBC 4.06 m/uL (4.30-5.90); RDW 15.1 % (11.5-15.5)
[2024-01-27 21:43] LABS: Potassium 4.5 mmol/L (3.5-5.1)
[2024-01-27 21:44] LABS: ALT 30 U/L (4-49); AST 34 U/L (17-59); African American GFR (CKD) >90 (>60 ml/min/1.73 sqM); Albumin 3.6 g/dL (3.5-5.0); Alkaline Phosphatase 86 U/L (38-126); Anion Gap 3 mmol/L; Blood Urea Nitrogen 29 mg/dL (9-20); Calcium 9.2 mg/dL (8.4-10.2); Carbon Dioxide 30 mmol/L (22-30); Chloride 97 mmol/L (98-107); Glucose 145 mg/dL (74-99); Magnesium 1.6 mg/dL (1.6-2.3); Non-African American GFR(CKD) 86 (>60 ml/min/1.73 sqM); Sodium 130 mmol/L (137-145); Total Bilirubin 1.3 mg/dL (0.2-1.3); Total Protein 6.4 g/dL (6.3-8.2)
[2024-01-27 21:49] LABS: Prothrombin Time 10.9 sec (10.0-12.5)
[2024-01-27 21:50] LABS: Partial Thromboplastin Time 21.8 sec (22.0-30.0)
[2024-01-28 02:22] LABS: Appearance,Urine Clear (Clear); Bilirubin,Urine Negative (Negative); Blood,Urine Negative (Negative); Color,Urine Yellow; Glucose,Urine (UA) Negative (Negative); Ketones,Urine Negative (Negative); Leukocyte Esterase,Urine Negative (Negative); Nitrite,Urine Negative (Negative); PH, Urine 6.5 (5.0-8.0); Protein,Urine Negative (Negative); Specific Gravity,Urine 1.016 (1.001-1.035)
[2024-01-28] MEDS ORDERED: HYDROcodone/APAP 5-325MG 1 EACH TAB PO PRN (04:37)
[2024-01-28] MEDS ORDERED: ALBUTEROL NEBULIZED 2.5 MG/3 ML INHALATION PRN (04:37)
--- NOTE | 2024-01-28 04:42 | P.HPIM ---
History of Present Illness H&P Date: 01/28/24 Chief Complaint: Urinary retention 88-year-old male with hypertension and COPD Patient coming in for evaluation of urinary retention and constipation. He had hernia repair surgery done laparoscopically about 2 weeks ago. However today he woke up and was unable to urinate for which she decided to come into the hospital for evaluation meanwhile he ran out of his home oxygen which she is dependent upon uses 4 L at home. In the ED he was managed by the ED doctor Man catheter was inserted urinary retention was relieved however due to patient lack of oxygen he stayed in the hospital for monitoring until he gets a new tank of oxygen in the morning. Otherwise patient denies any fevers chills any shortness of breath chest pain any nausea vomiting abdominal pain. Denies any hematuria or bloody bowel movements review of systems Pertinent positives as noted in HPI. All other systems were reviewed and are negative on exam Constitutional: No acute distress, conversant, pleasant Eyes: Anicteric sclerae, moist conjunctiva, Pupils equal round reactive to light ENMT: NC/AT Oropharynx clear, no erythema, or exudates Neck: Supple, no masses, or JVD No carotid bruits No thyromegaly Lungs: Diminished breath sounds with rales at lung bases Clear to percussion Normal respiratory effort, no accessory muscle use Cardiovascular: Heart regular in rate and rhythm, No murmurs, gallops, or rubs No peripheral edema Abdominal: Soft Nontender, no guarding, rebound or rigidity Abdomen moving with respiration Normoactive bowel sounds Extremities: No digital cyanosis No clubbing Pedal pulses intact and symmetrical Radial pulses intact and symmetrical No calf tenderness Psychiatric: Alert and oriented to person, place and time Appropriate affect fair judgement Neuro Muscles Strength 5/5 in all 4 extremities Sensation to light touch grossly present throughout Cranial nerves II-XII grossly intact Past Medical History Past Medical History: COPD, Hyperlipidemia, Hypertension Additional Past Medical History / Comment(s): hiatal hernia History of Any Multi-Drug Resistant Organisms: None Reported Past Surgical History: Appendectomy, Back Surgery, Hernia Repair, Joint Replacement Additional Past Surgical History / Comment(s): nic knees, bowel obstrution Past Anesthesia/Blood Transfusion Reactions: No Reported Reaction Past Psychological History: No Psychological Hx Reported Smoking Status: Former smoker Past Alcohol Use History: None Reported Past Drug Use History: None Reported Medications and Allergies Home Medications Medication Instructions Recorded Confirmed Type Albuterol Sulfate [Albuterol 1 puff INHALATION RT-QID PRN 12/30/23 01/16/24 History Sulfate Hfa] Aspirin EC [Ecotrin Low Dose] 81 mg PO HS 12/30/23 01/16/24 History Fluticasone Propion/Salmeterol 1 puff INHALATION RT-BID 12/30/23 01/16/24 History [Fluticasone-Salmeterol 250-50] Levothyroxine Sodium [Synthroid] 25 mcg PO DAILY 12/30/23 01/16/24 History Simvastatin [Zocor] 40 mg PO HS 12/30/23 01/16/24 History Tiotropium 2.5 Mcg/Puff [Spiriva 2 puff INHALATION RT-DAILY 12/30/23 01/16/24 History Respimat 2.5 Mcg] Niacin [Slo-Niacin] 500 mg PO DAILY #0 01/05/24 01/16/24 Rx Omeprazole 20 mg PO BID #60 tab 01/05/24 01/16/24 Rx lisinopriL [Zestril] 10 mg PO DAILY #30 tab 01/05/24 01/16/24 Rx Mupirocin 2% Oint [Bactroban 2% 1 applic TOPICAL TID 01/16/24 01/16/24 History Oint] atenoloL [Tenormin] 25 mg PO HS 01/16/24 01/16/24 History atenoloL [Tenormin] 50 mg PO DAILY 01/16/24 01/16/24 History HYDROcodone/APAP 5-325MG [[place] 1 tab PO Q6HR PRN 3 Days #12 tab 01/19/24 Rx 5-325] Allergies Allergy/AdvReac Type Severity Reaction Status Date / Time diazepam [From Valium] Allergy Anaphylaxis Verified 01/27/24 20:00 Physical Exam Vitals: Vital Signs Temp Pulse Resp BP Pulse Ox 01/28/24 02:32 85 22 149/83 95 01/27/24 19:52 98.2 F 87 20 152/70 99 Intake and Output 01/27/24 01/27/24 01/28/24 14:59 22:59 06:59 Output Total 500 Balance -500 Output: Urine 500 Uretheral (Man) 500 Other: Voiding Method Toilet Weight 68.039 kg Results CBC & Chem 7: 01/27/24 21:24 01/27/24 21:24 Labs: Abnormal Lab Results - Last 24 Hours (Table) 01/27/24 01/27/24 01/27/24 Range/Units 21:24 21:24 21:24 RBC 4.06 L (4.30-5.90) m/uL Hgb 11.9 L (13.0-17.5) gm/dL Hct 36.8 L (39.0-53.0) % Lymphocytes # 0.7 L (1.0-4.8) k/uL APTT 21.8 L (22.0-30.0) sec Sodium 130 L (137-145) mmol/L Chloride 97 L (98-107) mmol/L BUN 29 H (9-20) mg/dL Glucose 145 H (74-99) mg/dL Assessment and Plan Assessment: 88-year-old male with COPD on home oxygen 4 L, he recently had laparoscopic hernia repair 2 weeks ago today he started suffering of acute urinary retention for which she decided to come to the hospital for evaluation I discussed case with ED doctor and accepted the admission for acute on chronic hypoxic respiratory failure secondary to l running out of oxygen tank with anticipated length of stay less than 2 midnights Acute on chronic hypoxic respiratory failure secondary to running out of oxygen at home Supplemental oxygen as needed Replace oxygen tank in the morning and then possibly sent home COPD continue with home inhalers Albuterol inhaler, Symbicort, tiotropium inhaler Acute urinary retention resolved Man catheter was inserted patient to follow- up with urology Hypertension Continue with lisinopril and atenolol Hypothyroid Continue levothyroxine Blood work unremarkable showing white count 8 hemoglobin 11.9 Sodium 130 potassium 4.5 BUN 29 creatinine 0.68 Full code DVT prophylaxis heparin subcu 3 times daily GI prophylaxis Protonix p.o. daily
[2024-01-28] MEDS: LEVOTHYROXINE 25 MCG TAB PO SCH (06:46)
[2024-01-28] MEDS: PANTOPRAZOLE 40 MG TABLET PO SCH (07:58)
[2024-01-28] MEDS: IPRATROPIUM 0.5 MG/2.5 ML NEBU INHALATION SCH (08:22)
[2024-01-28] MEDS: SYMBICORT 80-4.5 MCG INHALER INHALATION SCH (08:23)
[2024-01-28] MEDS: HEPARIN SODIUM,PORCINE 5,000 UNIT/ML 1 ML VIAL SQ SCH (09:15)
--- NOTE | 2024-01-28 09:38 | P.DS ---
Providers Date of admission: 01/28/24 05:10 Attending physician: David Yao MD Primary care physician: [facility] Hospital Course: Discharge Diagnosis: Acute on chronic hypoxic respiratory failure secondary running out of oxygen at home COPD stable Acute urine retention resolved after Man catheter placement Hypertension Hypothyroidism Hospital Course: Patient is a 88-year-old male with a past medical history of hypertension and COPD who presented to the ED for urinary retention and constipation. Patient had a hernia repair done laparoscopically about 2 weeks ago. This morning when he woke up he was not able to urinate so he came into the ED. In the ED patient's Man catheter was placed and the urine retention resolved. Patient was found to have no oxygen and his tach and is normally on 4 L at home. Patient was admitted for oxygen. In the morning patient did tell me that his niece will be bringing his other oxygen tank. Patient deemed stable for discharge. I did tell the nurse to discharge the patient if family member brings in oxygen for him. Will have patient follow-up with urology for urinary retention. Patient seen and examined at bedside on 01/28/2024.[] Vital signs reviewed and stable. General: [non toxic], [no distress], [appears at stated age] Derm: [warm], [dry] Head: [atraumatic], [normocephalic], [symmetric] Eyes: [EOMI], [no lid lag], [anicteric sclera] Mouth: [no lip lesion], [mucus membranes moist] Cardiovascular: [S1S2 reg], [no murmur], [positive posterior tibial pulse bilateral], Lungs: [CTA bilateral], [no rhonchi, no rales] , [no accessory muscle use] Abdominal: [soft], [ nontender to palpation], [no guarding], [no appreciable organomegaly] Ext: [no gross muscle atrophy], [no edema], [no contractures] Neuro: [ CN II-XI grossly intact], [no focal neuro deficits] Psych: [Alert], [oriented], [appropriate affect] A total of [33] minutes of time were spent preparing this complex discharge summary . Patient Condition at Discharge: Good Plan - Discharge Summary New Discharge Prescriptions: Continue Tiotropium 2.5 Mcg/Puff [Spiriva Respimat 2.5 Mcg] 2 puff INHALATION RT-DAILY Fluticasone Propion/Salmeterol [Fluticasone-Salmeterol 250-50] 1 puff INHALATION RT-BID Levothyroxine Sodium [Synthroid] 25 mcg PO DAILY Aspirin EC [Ecotrin Low Dose] 81 mg PO HS lisinopriL [Zestril] 10 mg PO DAILY #30 tab Omeprazole 20 mg PO BID #60 tab Mupirocin 2% Oint [Bactroban 2% Oint] 1 applic TOPICAL TID Albuterol Sulfate [Albuterol Sulfate Hfa] 1 puff INHALATION RT-QID PRN PRN Reason: Shortness Of Breath Simvastatin [Zocor] 40 mg PO HS Niacin [Slo-Niacin] 500 mg PO DAILY #0 atenoloL [Tenormin] 50 mg PO DAILY atenoloL [Tenormin] 25 mg PO HS HYDROcodone/APAP 5-325MG [[place] 5-325] 1 tab PO Q6HR PRN 3 Days #12 tab PRN Reason: Pain Discharge Medication List Albuterol Sulfate [Albuterol Sulfate Hfa] 1 puff INHALATION RT-QID PRN 12/30/23 [History] Aspirin EC [Ecotrin Low Dose] 81 mg PO HS 12/30/23 [History] Fluticasone Propion/Salmeterol [Fluticasone-Salmeterol 250-50] 1 puff INHALATION RT-BID 12/30/23 [History] Levothyroxine Sodium [Synthroid] 25 mcg PO DAILY 12/30/23 [History] Simvastatin [Zocor] 40 mg PO HS 12/30/23 [History] Tiotropium 2.5 Mcg/Puff [Spiriva Respimat 2.5 Mcg] 2 puff INHALATION RT-DAILY 12/30/23 [History] Niacin [Slo-Niacin] 500 mg PO DAILY #0 01/05/24 [Rx] Omeprazole 20 mg PO BID #60 tab 01/05/24 [Rx] lisinopriL [Zestril] 10 mg PO DAILY #30 tab 01/05/24 [Rx] Mupirocin 2% Oint [Bactroban 2% Oint] 1 applic TOPICAL TID 01/16/24 [History] atenoloL [Tenormin] 25 mg PO HS 01/16/24 [History] atenoloL [Tenormin] 50 mg PO DAILY 01/16/24 [History] HYDROcodone/APAP 5-325MG [[place] 5-325] 1 tab PO Q6HR PRN 3 Days #12 tab 01/19/24 [Rx] Follow up Appointment(s)/Referral(s): Ramon Epperson MD [STAFF PHYSICIAN] - 1-2 days [facility],Clinic [Primary Care Provider] - 1-2 days Patient Instructions/Handouts: Constipation (DC), Urinary Retention in Men (ED) Discharge Disposition: HOME SELF-CARE
[2024-01-28] MEDS: lisinopriL 10 MG TAB PO SCH (09:52)
[2024-01-28] MEDS: atenoloL 50 MG TAB PO SCH (09:52)
[2024-01-28 14:14] VITALS: PULSE 70; RESP 18
[2024-01-28 15:58] VITALS: BP 130/68; TEMP 98.2
[2024-01-28] MEDS ORDERED: ASPIRIN 81 MG PO SCH (21:00)
[2024-01-28] MEDS ORDERED: ATORVASTATIN 20 MG TAB PO SCH (21:00)
[2024-01-28] MEDS ORDERED: atenoloL 25 MG TAB PO SCH (21:00)
== END 2024-01-28 15:52 | disposition home or self-care (01) ==
LOC: EC 19:50 → 6NMEDSUR 01-28 05:10
PROVIDERS: ADMIT Internal Medicine; ATTEND Internal Medicine
DX: N99.89 Other postprocedural complications and disorders of genitourinary system (principal); R33.9 Retention of urine, unspecified; K56.41 Fecal impaction; J96.21 Acute and chronic respiratory failure with hypoxia; J44.9 Chronic obstructive pulmonary disease, unspecified; I45.2 Bifascicular block; I10 Essential (primary) hypertension; E03.9 Hypothyroidism, unspecified; Z99.81 Dependence on supplemental oxygen; Z79.82 Long term (current) use of aspirin; Z79.890 Hormone replacement therapy; Z79.51 Long term (current) use of inhaled steroids; Z79.899 Other long term (current) drug therapy; Z88.8 Allergy status to other drugs, medicaments and biological substances; Z87.891 Personal history of nicotine dependence; Z98.890 Other specified postprocedural states
CPT/HCPCS: 99285; 51702; 51798; 36415; 94640 ×2; 94760; 93005; 80053; 83605; 83735; 85025; 85610; 85730; 81003; G0378

== ENCOUNTER 2025-02-22 20:12 | Inpatient (IN) | payer OTHER, MEDICARE ==
[2025-02-22 21:42] LABS: Basophils # (A) 0.04 10*3/uL (0.00-0.10); Basophils % (A) 0.4 %; Eosinophils # (A) 0.04 10*3/uL (0.04-0.35); Eosinophils % (A) 0.4 %; HCT 40.9 % (39.6-50.0); HGB 13.7 g/dL (13.0-17.0); Immature Platelet Fraction 2.1 % (1.1-6.1); Lymphocytes # (A) 0.56 10*3/uL (0.90-5.00); Lymphocytes % (A) 5.4 %; MCH 30.4 pg (27.0-32.0); MCHC 33.5 g/dL (32.0-37.0); MCV 90.7 fL (80.0-97.0); Monocytes # (A) 0.96 10*3/uL (0.20-1.00); Monocytes % (A) 9.3 %; Neutrophils # (A) 8.72 10*3/uL (1.80-7.70); Neutrophils % (A) 84.1 %; Platelet Count 142 10*3/uL (140-440); RBC 4.51 10*6/uL (4.40-5.60); RDW 13.7 % (11.5-14.5); WBC 10.36 10*3/uL (4.50-10.00)
[2025-02-22 21:49] LABS: INR 1.3 (<1.2); Prothrombin Time 13.7 sec (10.0-12.5)
--- NOTE | 2025-02-22 21:56 | CT ---
EXAMINATION TYPE: CT brain cspine wo con CT DLP: 1421.1 mGycm, Automated exposure control for dose reduction was used. DATE OF EXAM: 02/22/2025 9:07 PM COMPARISON: CT head 02/06/2023. CLINICAL INDICATION:Male, 89 years old with history of Trauma; fall TECHNIQUE: Brain: Multiple axial CT images of the brain were obtained without IV contrast. Cspine: Axial CT images from the skull base to the inferior aspect of T2 we obtained without intraven ous contrast. Coronal and sagittal reformatted images were also reviewed. . FINDINGS: Brain: Extra-axial spaces: No abnormal extra-axial fluid collections. Ventricular system: Dilatation in proportion to cerebral atrophy. Cerebral parenchyma: Cerebral atrophy. No acute intraparenchymal hemorrhage or mass effect. The horne -white junction is well differentiated. Scattered hypoattenuating areas are seen within the white mat ter. Cerebellum: Unremarkable. Mass effect: No evidence of midline shift. Intracranial vasculature: Atherosclerotic calcifications of the intracranial vessels. Soft tissues: Small area of attenuation along the left parietal scalp. Calvarium/osseous structures: No acute depressed skull fracture. Paranasal sinuses and mastoid air cells: Mild scattered mucosal thickening and or secretions. Visualized orbits: Orbital contents are intact. Cervical spine: Fracture: No acute fractures. Osseous structures: Diffuse osteopenia. Significant degenerative changes of the odontoid process. Mul tilevel flowing osteophytes with bridging is seen consistent with diffuse etiopathic skeletal hyperos tosis. Multilevel disc degenerative changes are also identified. Vertebral alignment: Within normal limits. Spinal canal/Neural Foramina: Multilevel disc osteophyte complexes and facet arthropathy right side g reater than left is seen most pronounced C3-C4 where there is at least moderate spinal canal and mode rate bilateral neural foraminal stenosis. Neck soft tissues: Prevertebral soft tissues are within normal limits. Other: The airway is patent. Severe advanced emphysematous changes with scarring is noted in the bila teral apices. IMPRESSION: 1. No acute intracranial process. Small left parietal scalp hematoma/laceration. Correlate with exam. 2. No evidence of acute cervical spine fracture. 3. 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 [facility], , 02/22/2025 9:54 PM
[2025-02-22 21:58] LABS: ALT 19 U/L (4-49); AST 40 U/L (17-59); African American GFR (CKD) >90 (>60 ml/min/1.73 sqM); Albumin 3.9 g/dL (3.5-5.0); Alkaline Phosphatase 74 U/L (38-126); Anion Gap 14 mmol/L; Blood Urea Nitrogen 31 mg/dL (9-20); Calcium 9.7 mg/dL (8.4-10.2); Carbon Dioxide 22 mmol/L (22-30); Chloride 105 mmol/L (98-107); Creatine Kinase 308 U/L (55-170); Glucose 110 mg/dL (74-99); Magnesium 1.8 mg/dL (1.6-2.3); Non-African American GFR(CKD) 82 (>60 ml/min/1.73 sqM); Partial Thromboplastin Time 21.6 sec (22.0-30.0); Potassium 4.5 mmol/L (3.5-5.1); Sodium 141 mmol/L (137-145); Total Protein 6.5 g/dL (6.3-8.2)
--- NOTE | 2025-02-22 23:00 | XR ---
EXAMINATION TYPE: XR knee limited LT DATE OF EXAM: 02/22/2025 10:45 PM INDICATION: Patient age:Male; 89 years old; Reason for study: knee pain fall; [facility]. pain COMPARISON: None. TECHNIQUE: The Left knee(s) was examined in frontal and lateral projections. 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 Hardware appears intact with appropriate alignment. No periprosthetic lucency identified to suggest loosening. No evidence of any acute osseous pathology, soft tissue swelling, or joint effu vladimir is noted. Vascular sclerosis. IMPRESSION: 1. No acute osseous pathology. 2. 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 Hardware appears intact with appropriate alignme nt. [facility], , 02/22/2025 10:57 PM
--- NOTE | 2025-02-22 23:02 | XR ---
EXAMINATION TYPE: XR femur RT DATE OF EXAM: 02/22/2025 10:48 PM INDICATION: Patient age:Male; 89 years old; Reason for study: bilat hip pain R>L, fall; pain COMPARISON: None TECHNIQUE: The right femur was examined in frontal and lateral projections. 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 No periprosthetic lucency to suggest loosening. Hardware appears intact with appropriate alignment. No evidence of acute osseous pathology, joint dislocation, or soft tissue swelling. 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 Suprapatellar spurring. Vascular sclerosis. IMPRESSION: 1. No acute osseous pathology. 2. 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 Hardware appears intact with appropriate align ment. [facility], , 02/22/2025 10:59 PM
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
--- NOTE | 2025-02-22 23:13 | CT ---
EXAMINATION TYPE: CT ChestAbdPelvis wo con CT DLP: 562 mGycm, Automated exposure control for dose reduction was used. DATE OF EXAM: 02/22/2025 10:40 PM COMPARISON: CT abdomen and pelvis 01/16/2024, 01/02/2024, chest radiograph 01/01/2024 CLINICAL INDICATION:Male, 89 years old with history of fall, diffuse back pain; PHH, fall, diffuse ba ck pain Technique: Multiple axial images of the chest, abdomen, and pelvis were obtained without intravenous contrast. This limits evaluation. Two-dimensional coronal and sagittal reconstructions were obtained. Findings: CHEST: LUNGS/ PLEURA: No pleural effusion, pneumothorax, or focal consolidation. Advanced centrilobular emph ysematous changes. Linear scarring within the left upper lobe. Right sided biapical pleural parenchym al scarring. No suspicious pulmonary mass or nodule. AIRWAY: Patent and unremarkable.. HEART: Size within normal limits. . No pericardial effusion. No significant coronary artery calcifica tions. MEDIASTINUM: No gross evidence of adenopathy. VASCULATURE: No aortic aneurysm. [id number] atherosclerotic calcification of the aorta and its branches. MUSCULOSKELETAL: No acute osseous abnormalities. Diffuse bone demineralization. Mild bilateral should er arthropathy. DISH of the thoracic spine. SOFT TISSUES/LYMPH NODES: Unremarkable. LOWER NECK: No significant findings. ABDOMEN: ABDOMEN LIVER: Unremarkable noncontrast appearance. GALLBLADDER AND BILE DUCTS: Layering increased densities within the lumen consistent with gallstones are present. No biliary ductal dilatation. PANCREAS: Mildly atrophic. SPLEEN: Unremarkable noncontrast appearance. ADRENAL GLANDS: Unremarkable noncontrast appearance.. KIDNEYS AND URETERS: No evidence of hydronephrosis. No right renal calculi. Punctate nonobstructing l eft renal calculus. Inferior left renal pole 2.1 cm simple appearing cyst. No focal nunu. Nonspecif ic bilateral perinephric fat standing redemonstrated. PELVIS BLADDER: Unremarkable noncontrast appearance. REPRODUCTIVE: Coarse calcifications of the prostate gland are identified. ABDOMEN & PELVIS STOMACH AND BOWEL: Interval postsurgical changes from hiatal hernia repair without obvious recurrence .Extensive diverticulosis of the distal colon without evidence for acute diverticulitis. No focal bow el wall thickening or surrounding inflammatory changes. No evidence of bowel obstruction. PERITONEUM: No evidence of pneumoperitoneum or free fluid. VASCULATURE: Moderate atherosclerotic calcifications are present throughout the abdominal aorta and i ts branches. No abdominal aortic aneurysm. Pelvic phleboliths. MUSCULOSKELETAL: No acute osseous abnormalities. Diffuse bone demineralization. Degenerative changes of the bilateral SI joints with anterior bridging. Osteoarthritic changes of both hips with left grea ter than right. Grade 1 anterolisthesis of L4 on L5 without evidence of pars defects. Grade 1 retroli sthesis of L1 on L2. Moderate multilevel degenerative disc disease and facet arthropathy. LYMPH NODES: No gross evidence for lymphadenopathy. SOFT TISSUE/ABDOMINAL WALL: Small fat filled right inguinal hernia. IMPRESSION: 1. No acute traumatic process within the chest, abdomen or pelvis. 2. Interval postsurgical changes from hiatal hernia repair. No evidence for recurrent hernia. 3. Colonic diverticulosis without evidence for acute diverticulitis. 4. Advanced emphysematous changes with regions of pleuroparenchymal scarring. 5. Cholelithiasis. 6. Punctate nonobstructing left renal calculus. [facility], , 02/22/2025 11:11 PM
[2025-02-22] MEDS ORDERED: ALBUTEROL NEBULIZED 2.5 MG/3 ML INHALATION PRN (23:49)
[2025-02-22] MEDS ORDERED: NALOXONE 0.4 MG/ML 1 ML VIAL IV PRN (23:55)
[2025-02-23] MEDS: ACETAMINOPHEN TAB 500 MG TAB PO STA (00:12)
[2025-02-23] MEDS: ONDANSETRON 4 MG/2 ML VIAL IVP STA (00:16)
[2025-02-23] MEDS: fentaNYL (PF) 50 MCG/ML 2 ML AMP IVP STA (00:24)
[2025-02-23] MEDS: SODIUM CHLORIDE 0.9% 1,000 ML IV SCH (00:37)
[2025-02-23] MEDS: SODIUM CHLORIDE 0.9% 500 ML 500 ML IV ONE (01:34)
[2025-02-23] MEDS: SYMBICORT 80-4.5 MCG INHALER INHALATION SCH (01:38)
[2025-02-23] MEDS ORDERED: HEPARIN SODIUM 1,000 UN/ML (10ML VL) IV PRN (05:16)
[2025-02-23] MEDS: HEPARIN SOD,PORK IN 0.45% NACL 25,000 UNIT in 0.45% NACL 1 250ML.BAG IV SCH (06:57)
[2025-02-23] MEDS: HEPARIN SODIUM 1,000 UN/ML (10ML VL) IV ONE (07:01)
[2025-02-23] MEDS: LEVOTHYROXINE 25 MCG TAB PO SCH (07:05)
--- NOTE | 2025-02-23 07:48 | P.HPIM ---
History of Present Illness H&P Date: 02/22/25 Chief Complaint: Fall from exercise bike at home, found on floor after 24+ hours 89 year old male with COPD and hypertension. He fell from an exercise bike at home, likely around 3:00 PM the previous day. He was found on the floor over 24 hours later by family members. The patient reports experiencing pain, particularly in the back and left knee. He was not wearing his Life Alert device at the time of the fall. X-rays of both knees were taken, showing no fractures despite having knee replacements. The patient was coherent when found. he is former smoker who quit years ago. 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 This occupation likely exposed him to harmful substances such as lead-based paint and varnish, potentially contributing to his COPD. Current living situation and level of independence not provided.24r is a former smoker who quit years ago. 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 This occupation likely exposed him to harmful substances such as lead-based paint and varnish, potentially contributing to his COPD. patient lives alone and is independent in his ADLS past medical 1. Chronic Obstructive Pulmonary Disease (COPD) 2. Hypertension Status post hiatal hernia surgery last year. Bilateral knee replacement review of systems Pertinent positives as noted in HPI. All other systems were reviewed and are negative General: Pain reported in back and left knee Musculoskeletal: Pain in left knee, no fractures noted on X-ray Respiratory: History of COPD, current breathing status not provided Cardiovascular: History of hypertension, no current chest pain reported Neurological: Patient was coherent when found on exam Constitutional: No acute distress, conversant, pleasant Eyes: Anicteric sclerae, moist conjunctiva, Pupils equal round reactive to light ENMT: NC/there is small hematoma over left restorationism area Oropharynx clear, no erythema, or exudates Neck: Neck collar immobilizer in place pending CT results Lungs: Clear to auscultation Clear to percussion Normal respiratory effort, no accessory muscle use Cardiovascular: Heart regular in rate and rhythm, No murmurs, gallops, or rubs No peripheral edema Abdominal: Soft, mild distention Nontender, no guarding, rebound or rigidity Abdomen moving with respiration Normoactive bowel sounds Extremities: No digital cyanosis No clubbing Pedal pulses intact and symmetrical Radial pulses intact and symmetrical No calf tenderness Psychiatric: Alert and oriented to person, place and time Appropriate affect fair judgement Neuro Muscles Strength 5/5 in all 4 extremities Sensation to light touch grossly present throughout Cranial nerves II-XII grossly intact Past Medical History Past Medical History: COPD, Hyperlipidemia, Hypertension Additional Past Medical History / Comment(s): hiatal hernia History of Any Multi-Drug Resistant Organisms: None Reported Past Surgical History: Appendectomy, Back Surgery, Hernia Repair, Joint Replacement Additional Past Surgical History / Comment(s): nic knees, bowel obstrution Past Anesthesia/Blood Transfusion Reactions: No Reported Reaction Past Psychological History: No Psychological Hx Reported Smoking Status: Former smoker Past Alcohol Use History: None Reported Past Drug Use History: None Reported Medications and Allergies Home Medications Medication Instructions Recorded Confirmed Type Albuterol Sulfate [Albuterol 1 puff INHALATION RT-QID PRN 12/30/23 01/28/24 History Sulfate Hfa] Aspirin EC [Ecotrin Low Dose] 81 mg PO HS 12/30/23 01/28/24 History Fluticasone Propion/Salmeterol 1 puff INHALATION RT-BID 12/30/23 01/28/24 History [Fluticasone-Salmeterol 250-50] Levothyroxine Sodium [Synthroid] 25 mcg PO DAILY 12/30/23 01/28/24 History Simvastatin [Zocor] 40 mg PO HS 12/30/23 01/28/24 History Tiotropium 2.5 Mcg/Puff [Spiriva 2 puff INHALATION RT-DAILY 12/30/23 01/28/24 History Respimat 2.5 Mcg] Niacin [Slo-Niacin] 500 mg PO DAILY #0 01/05/24 01/28/24 Rx Omeprazole 20 mg PO BID #60 tab 01/05/24 01/28/24 Rx lisinopriL [Zestril] 10 mg PO DAILY #30 tab 01/05/24 01/28/24 Rx Mupirocin 2% Oint [Bactroban 2% 1 applic TOPICAL TID 01/16/24 01/28/24 History Oint] atenoloL [Tenormin] 25 mg PO HS 01/16/24 01/28/24 History atenoloL [Tenormin] 50 mg PO DAILY 01/16/24 01/28/24 History HYDROcodone/APAP 5-325MG [Hana 1 tab PO Q6HR PRN 3 Days #12 tab 01/19/2401/27 Rx 5-325] Allergies Allergy/AdvReac Type Severity Reaction Status Date / Time diazepam [From Valium] Allergy Anaphylaxis Verified 02/23/25 00:11 Physical Exam Vitals: Vital Signs Temp Pulse Resp BP Pulse Ox 02/22/25 20:18 97.7 F 70 20 188/85 98 Intake and Output 02/22/25 02/22/25 02/23/25 14:59 22:59 06:59 Other: Weight 66.678 kg Results CBC & Chem 7: 02/22/25 21:32 02/22/25 21:32 Labs: Abnormal Lab Results - Last 24 Hours (Table) 02/22/25 02/22/25 02/22/25 Range/Units 21:32 21:32 21:32 WBC 10.36 H (4.50-10.00) 10*3/uL Neutrophils # 8.72 H (1.80-7.70) 10*3/uL Lymphocytes # 0.56 L (0.90-5.00) 10*3/uL PT 13.7 H (10.0-12.5) sec INR 1.3 H (<1.2) APTT 21.6 L (22.0-30.0) sec BUN 31 H (9-20) mg/dL Glucose 110 H (74-99) mg/dL Total Bilirubin 2.8 H (0.2-1.3) mg/dL Creatine Kinase 308 H (55-170) U/L Troponin I (0.000-0.034) ng/mL 02/22/25 Range/Units 21:32 WBC (4.50-10.00) 10*3/uL Neutrophils # (1.80-7.70) 10*3/uL Lymphocytes # (0.90-5.00) 10*3/uL PT (10.0-12.5) sec INR (<1.2) APTT (22.0-30.0) sec BUN (9-20) mg/dL Glucose (74-99) mg/dL Total Bilirubin (0.2-1.3) mg/dL Creatine Kinase (55-170) U/L Troponin I 0.235 H* (0.000-0.034) ng/mL Assessment and Plan Assessment: 89-year-old male hypertension COPD lives alone he was found 24-hour after a fall on the ground I discussed case with ED doctor and accepted the admission for observation overnight and ruling out underlying cardiac disease due to elevated troponins with anticipated length of stay less than 2 midnights 1. Fall with prolonged immobilization: 24r experienced a fall from an exercise bike at home and was found on the floor after more than 24 hours. The primary concerns are potential complications from prolonged immobilization, including dehydration, rhabdomyolysis, and pressure sores. 2. Musculoskeletal pain: Patient reports pain in the back and left knee. X-rays show no fractures, but further evaluation may be needed to rule out soft tissue injuries. 3. Chronic conditions: Patient has a history of COPD and hypertension, which need to be monitored and managed during the hospital stay. 4. Elevated troponins denies any chest pain or shortness of breath troponins trending up rule out underlying cardiac condition like ACS, await cardiology evaluation 5. Elevated bilirubin 2.8 rule out underlying liver disease check liver ultrasound 6. Mild rhabdo due to prolonged immobilization on the ground with creatinine kinase of 308 continue with IV fluid hydration 7. Small subcutaneous hematoma on the left temporal area continue close monitoring Plan: 1. Admit for observation and further evaluation 2. IV fluids for rehydration 3. Pain management as needed 4. Monitor renal function and check CK levels to rule out rhabdomyolysis 5. Assess for pressure sores and implement pressure relief measures 6. Continue home medications for COPD and hypertension, adjusting as needed based on current condition 7. Physical therapy evaluation for mobility assessment and rehabilitation plan 8. Consider occupational therapy for home safety evaluation 9. Educate patient on the importance of wearing the Life Alert device 10. Arrange follow-up with primary care physician after discharge Full code DVT prophylaxis on heparin drip for suspected underlying ACS Fall precautions PT/OT evaluation Blood work reviewed overall unremarkable except for slightly elevated creatinine kinase 308, trending up troponins started at 0.235 trending up to 0.42 Basic metabolic panel overall unremarkable except for slight evidence of dehydration with BUN of 31 elevated and creatinine 0.74 Electrolytes unremarkable sodium 141 potassium 4.5 calcium 9.7 magnesium 1.8 White count slightly elevated 10.36 is most likely reactive afebrile Hemoglobin 13.7 unremarkable platelets 142
[2025-02-23] MEDS: PANTOPRAZOLE 40 MG TABLET PO SCH (08:41)
[2025-02-23] MEDS: ACETAMINOPHEN TAB 325 MG TAB PO PRN (08:45)
[2025-02-23] MEDS ORDERED: HEPARIN SODIUM,PORCINE 5,000 UNIT/ML 1 ML VIAL SQ SCH (09:00)
[2025-02-23] MEDS: TIOTROPIUM 2.5 MCG INHALER INHALATION SCH (09:07)
--- NOTE | 2025-02-23 09:33 | US ---
EXAMINATION TYPE: US liver DATE OF EXAM: 02/23/2025 COMPARISON: CLINICAL INDICATION: Male, 89 years old with history of obstructive disease elev bili; Abnormal labs. Gallstones seen on CT. TECHNIQUE: Grayscale and color Doppler imaging of the right upper quadrant was performed. FINDINGS: EXAM MEASUREMENTS: Liver Length: 16.2 cm Gallbladder Wall: 0.1 cm CHD: 1.0 cm Right Kidney: 9.8 x 3.8 x 4.5 cm Pancreas: Obscured by bowel gas Liver: wnl Gallbladder: A couple echogenic foci are seen up to 7 mm. Unable to obtain LLD images due to patient unable to turn. No duke hydropic change, surrounding fluid, or wall thickening. Evidence for sonographic Marcum's sign: neg CHD: dilated. CBD: Obscured by overlying bowel gas Right Kidney: No hydronephrosis or masses seen IMPRESSION: 1. The common hepatic duct is dilated at 1.0 cm. This may in part relate to patient's age. The bile d uct is obscured by bowel gas and could not be evaluated. If persistent concern for biliary obstructio n, consider MRCP. 2. Suggestion of a couple gallstones measuring up to 7 mm. No abnormal gallbladder distention. [facility], Workstation: [email or web address], 02/23/2025 9:31 AM
[2025-02-23] MEDS: METOPROLOL SUCCINATE (ER) 25 MG TAB.ER.24H PO SCH (13:30)
--- NOTE | 2025-02-23 17:34 | P.PN ---
Subjective Progress Note Date: 02/23/25 89 year old M with PMH of COPD on 4L home O2, HTN, HLD presents to the ED after tripping and falling from an exercise bike. He was down for > 24 hours due to pain in his bilateral knees. Denies chest pain, SOB, lightheadedness. In the ED he underwent extensive evaluation. BP 188/85, HR 70, RR 20, T 97.7F, 98% on 4L NC. CBC, Coag panel, CMP significant for WBC 10.36, PT 13.7, INR 1.3, APTT 21.6, BUN 31, glu 110, T. Bili 2.8. CPK 308. Lactic acid 1.9. Mag 1.8. Trop 0.235, 0.314, 0.420 with EKG showing sinus arrhythmia. 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 Femur and knee XR no acute process. CT chest/abd/pelvis showed no acute process, diverticulosis, emphysema, left renal calculus, cholelithiasis. Patient was started on heparin drip and admitted for Cardiology evaluation. Cardiology discontinued heparin drip and ordered Echo. 02/23 Patient was seen and examined. Reports chronic bilateral knee pain and burning sensation in both of his feet. No chest pain. General: non toxic, no distress, appears at stated age Derm: warm, dry Head: atraumatic, normocephalic, symmetric Eyes: EOMI, no lid lag, anicteric sclera Mouth: no lip lesion, mucus membranes moist Cardiovascular: S1S2 ashley, no murmur Lungs: Decreased BS bilateral, no rhonchi, no rales , no accessory muscle use Ext: no gross muscle atrophy, no edema, no contractures Neuro: no focal neuro deficits Psych: Alert, oriented, appropriate affect Based on my assessment of this patient, this patient meets a high complexity level of care. Toponin elevation: ASA 81 mg PO QD. Lipitor 20 mg PO QHS. Metoprolol 12.5 mg PO QD. Echo ordered. Cardiology consulted. Leukocytosis: Likely reactive. No signs of infection. Monitor fever profile. Hyperbiliruibemia: Repeat CMP in the AM. Follow Liver US. Elevated CPK: NS at 75 cc/hr. Elevated BUN: IV hydration as above. COPD on 4L NC: Not in acute exacerbation. Spiriva 2 INH QD. Symbicort 2 INH BID. Albuterol neb PRN. Hypertension: Lisinopril 10 mg PO QD. Metoprolol as above. Dyslipidemia: Lipitor as above. Hypothyroid: Synthroid 25 mcg PO QD. CODE STATUS: FULL CODE DVT Prophylaxis: Lovenox SQ GI Prophylaxis: Designated medical POA if patient is not able to make medical decisions for themselves: I have reviewed the following apartment leasing consultant notes: I have reviewed the results of the following tests: I have ordered the following tests: CBC and CMP in the AM. I have discussed the care of this patient with the following independent historian: DAWNA. Family at bedside. I have independently interpreted the following test below: I have discussed the management of this patient with the following physician: Objective - Vital Signs Vital signs: Vital Signs Temp 97.8 F 02/23/25 11:28 Pulse 53 L 02/23/25 15:23 Resp 22 02/23/25 15:23 BP 137/77 02/23/25 15:23 Pulse Ox 99 02/23/25 15:23 FiO2 Intake & Output 02/22/25 02/23/25 02/23/25 18:59 06:59 18:59 Output Total 225 Balance -225 Weight 66.678 kg Output: Urine 225 - Labs CBC & Chem 7: 02/22/25 21:32 02/22/25 21:32 Labs: Abnormal Lab Results - Last 24 Hours (Table) 02/22/25 02/22/25 02/22/25 Range/Units 21:32 21:32 21:32 WBC 10.36 H (4.50-10.00) 10*3/uL Neutrophils # 8.72 H (1.80-7.70) 10*3/uL Lymphocytes # 0.56 L (0.90-5.00) 10*3/uL PT 13.7 H (10.0-12.5) sec INR 1.3 H (<1.2) APTT 21.6 L (22.0-30.0) sec BUN 31 H (9-20) mg/dL Glucose 110 H (74-99) mg/dL Total Bilirubin 2.8 H (0.2-1.3) mg/dL Creatine Kinase 308 H (55-170) U/L Troponin I (0.000-0.034) ng/mL 02/22/25 02/23/25 02/23/25 Range/Units 21:32 00:42 03:10 WBC (4.50-10.00) 10*3/uL Neutrophils # (1.80-7.70) 10*3/uL Lymphocytes # (0.90-5.00) 10*3/uL PT (10.0-12.5) sec INR (<1.2) APTT (22.0-30.0) sec BUN (9-20) mg/dL Glucose (74-99) mg/dL Total Bilirubin (0.2-1.3) mg/dL Creatine Kinase (55-170) U/L Troponin I 0.235 H* 0.314 H* 0.420 H* (0.000-0.034) ng/mL 02/23/25 Range/Units 11:09 WBC (4.50-10.00) 10*3/uL Neutrophils # (1.80-7.70) 10*3/uL Lymphocytes # (0.90-5.00) 10*3/uL PT (10.0-12.5) sec INR (<1.2) APTT 82.3 H (22.0-30.0) sec BUN (9-20) mg/dL Glucose (74-99) mg/dL Total Bilirubin (0.2-1.3) mg/dL Creatine Kinase (55-170) U/L Troponin I (0.000-0.034) ng/mL
[2025-02-23] MEDS: ATORVASTATIN 20 MG TAB PO SCH (20:46)
[2025-02-23] MEDS: ASPIRIN 81 MG PO SCH (20:46)
[2025-02-24 06:17] LABS: HCT 38.5 % (39.6-50.0); HGB 12.6 g/dL (13.0-17.0); Immature Platelet Fraction 2.2 % (1.1-6.1); MCH 30.2 pg (27.0-32.0); MCHC 32.7 g/dL (32.0-37.0); MCV 92.3 fL (80.0-97.0); Platelet Count 131 10*3/uL (140-440); RBC 4.17 10*6/uL (4.40-5.60); RDW 13.8 % (11.5-14.5); WBC 6.80 10*3/uL (4.50-10.00)
[2025-02-24 06:34] LABS: ALT 18 U/L (4-49); AST 32 U/L (17-59); African American GFR (CKD) 89 (>60 ml/min/1.73 sqM); Albumin 3.1 g/dL (3.5-5.0); Alkaline Phosphatase 72 U/L (38-126); Anion Gap 6 mmol/L; Blood Urea Nitrogen 32 mg/dL (9-20); Calcium 8.9 mg/dL (8.4-10.2); Carbon Dioxide 23 mmol/L (22-30); Chloride 109 mmol/L (98-107); Glucose 96 mg/dL (74-99); Non-African American GFR(CKD) 77 (>60 ml/min/1.73 sqM); Potassium 4.5 mmol/L (3.5-5.1); Sodium 138 mmol/L (137-145); Total Protein 5.6 g/dL (6.3-8.2)
[2025-02-24] MEDS: ENOXAPARIN 40 MG/0.4 ML SYRINGE SQ SCH (10:38)
[2025-02-24] MEDS: traMADol 50 MG TAB PO PRN (10:40)
--- NOTE | 2025-02-24 11:43 | P.CRDCN ---
History of Present Illness Consult date: 02/24/25 Reason for Consult (text): Elevated Troponin History of present illness: This is Claus Rivas NP, I'm dictating on behalf of Dr. Regan's H&P and A&P The patient was interviewed and examined. HPI: Patient yvette is a pleasant 89-year-old gentleman with a past medical history of COPD, hyperlipidemia, and hypertension who presented to the hospital after a fall. Patient reports that he was using his stationary exercise bike sitting on his couch, and after finishing got up to walk away and tripped over it and fell. He was unable to get up and was on the ground for approximately 24 hours before his son found him. On arrival to the ER the patient had multiple imaging modalities, without evidence of fracture. Patient reports that he did not pass out or was lightheaded. After arrival to the hospital the patient had labs com pleted which did show an elevated troponin. Cardiology was consulted due to this. EKG was negative for any obvious damage, ST changes or ischemia. Patient reports that he is feeling okay this morning. He denies any chest pain, shortness of breath, heart palpitations. He is normal sinus mechanism on the monitor. ROS: [No fever, chills, or rigors] [no cough, phlegm, or expectoration] [no nausea, vomiting, or diarrhea] [no hematuria, dysuria] [no musculoskelatal complaints] [no strokes or seizures] [no skin lesions] EXAMINATION: GENERAL: Well-appearing, well-nourished and in no acute distress. NECK: Supple without JVD or thyromegaly. LUNGS: Breath sounds clear to auscultation bilaterally. Respiration equal and unlabored. No wheezes, rales or rhonchi. HEART: Regular rate and rhythm without murmurs, rubs or gallops. S1 and S2 heard. EXTREMITIES: Normal range of motion, no edema. No clubbing or cyanosis. Peripheral pulses intact and strong. REVIEW OF LABS, ECG & MEDICAL DATA: LABS: White count 6.8, hemoglobin 12.6, platelets 131, sodium 138, potassium 4.5, chloride 109, BUN 32, creatinine 0.86, calcium 8.9, creatinine kinase 308, troponin-0.235, 0.314, 0.420, 0.179 EKG: Normal sinus mechanism. 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 X-ray of the knee dated 02/22/2025 demonstrates no acute osseous pathology, postsurgical changes from left knee arthroplasty, hardware appears intact with appropriate alignment. X-ray of the right femur dated 02/22/2025 demonstrates no acute osseous pathology, postsurgical changes from right knee arthroplasty, hardware appears intact with appropriate alignment. CT scan of the chest/abdomen/pelvis without contrast dated 02/22/2025 demonstrates no acute traumatic process within the chest, abdomen, or pelvis, interval postsurgical changes from hiatal hernia repair, no evidence for recurrent hernia, colonic diverticulosis without evidence for acute diverticulitis, advanced emphysematous changes with regions of pleural parenchymal scarring, cholelithiasis, punctate nonobstructing left renal calculus. Liver ultrasound dated 02/23/2025 demonstrates, hepatic duct is dilated at 1 cm, this may in part relate to patient's age, the bile duct is obscured by bowel gas and could not be evaluated, if persistent concern for biliary obstruction, consider MRCP, suggestion of a couple gallstones measuring up to 7 mm, no abnormal gallbladder distention. VITALS: Temp 97.6, pulse 70, respirations 18, blood pressure 146/78, O2 saturation 94% on 3 L IMPRESSION: 1. Mechanical fall 2. Elevated troponins, secondary to extended downtime 3. History hypertension PLAN: Continue current medications as prescribed. Patient may follow-up with cardiology as an outpatient, he sees a force dispatcher at the [facility]. Elevated troponins are secondary to extended downtime. Patient had no concerning mechanism from a cardiac standpoint for his fall, and EKG does not demonstrate any significant damage. Troponins are already starting to downtrend. No further recommendations from a cardiology standpoint. Thank you for the consult and allowing us to participate in the care of this patient. Past Medical History Past Medical History: COPD, Hyperlipidemia, Hypertension Additional Past Medical History / Comment(s): hiatal hernia History of Any Multi-Drug Resistant Organisms: None Reported Past Surgical History: Appendectomy, Back Surgery, Hernia Repair, Joint Replacement Additional Past Surgical History / Comment(s): nic knees, bowel obstrution Past Anesthesia/Blood Transfusion Reactions: No Reported Reaction Past Psychological History: No Psychological Hx Reported Smoking Status: Former smoker Past Alcohol Use History: None Reported Past Drug Use History: None Reported Medications and Allergies Home Medications Medication Instructions Recorded Confirmed Type Fluticasone Propion/Salmeterol 1 puff INHALATION RT-BID 12/30/23 02/23/25 History [Fluticasone-Salmeterol 250-50] Levothyroxine Sodium [Synthroid] 25 mcg PO DAILY 12/30/23 02/23/25 History Simvastatin [Zocor] 40 mg PO HS 12/30/23 02/23/25 History Tiotropium 2.5 Mcg/Puff [Spiriva 2 puff INHALATION RT-DAILY 12/30/23 02/23/25 History Respimat 2.5 Mcg] Omeprazole 20 mg PO BID #60 tab 01/05/24 02/23/25 Rx lisinopriL [Zestril] 10 mg PO DAILY #30 tab 01/05/24 02/23/25 Rx atenoloL [Tenormin] 25 mg PO HS 01/16/24 02/23/25 History Ipratropium [place] [Ipratropium 1 spray EA NOSTRIL BID 02/23/25 02/23/25 History [place] 0.03%] atenoloL [Tenormin] 50 mg PO DAILY 02/23/25 02/23/25 History fluorouraciL [Efudex] 1 applic TOPICAL BID 02/23/25 02/23/25 History Allergies Allergy/AdvReac Type Severity Reaction Status Date / Time diazepam [From Valium] Allergy Anaphylaxis Verified 02/23/25 11:18 Physical Exam Vitals: Vital Signs Temp Pulse Resp BP Pulse Ox 02/24/25 08:00 97.6 F 70 18 146/78 94 L 02/24/25 07:00 68 18 141/67 94 L 02/24/25 06:00 61 18 138/60 95 02/24/25 04:00 98.2 F 60 18 150/69 96 02/24/25 00:00 98.2 F 62 16 105/53 96 02/23/25 20:00 98.3 F 56 L 16 115/60 96 02/23/25 18:10 69 18 134/61 96 06/27/25 15:23 53 L 22 137/77 99 02/23/25 13:25 55 L 18 112/52 97 02/23/25 11:28 97.8 F 50 L 18 123/53 98 Intake and Output 02/23/25 02/24/25 02/24/25 22:59 06:59 14:59 Output Total 900 Balance -900 Output: Urine 900 Results 02/24/25 05:40 02/24/25 05:40 Cardiac Enzymes 02/24/25 02/24/25 Range/Units 05:40 05:40 AST 32 (17-59) U/L Troponin I 0.179 H* (0.000-0.034) ng/mL Coagulation 02/23/25 Range/Units 11:09 APTT 82.3 H (22.0-30.0) sec CBC 02/24/25 Range/Units 05:40 WBC 6.80 (4.50-10.00) 10*3/uL RBC 4.17 L (4.40-5.60) 10*6/uL Hgb 12.6 L (13.0-17.0) g/dL Hct 38.5 L (39.6-50.0) % Plt Count 131 L (140-440) 10*3/uL Comprehensive Metabolic Panel 02/24/25 Range/Units 05:40 Sodium 138 (137-145) mmol/L Potassium 4.5 (3.5-5.1) mmol/L Chloride 109 H (98-107) mmol/L Carbon Dioxide 23 (22-30) mmol/L BUN 32 H (9-20) mg/dL Creatinine 0.86 (0.66-1.25) mg/dL Glucose 96 (74-99) mg/dL Calcium 8.9 (8.4-10.2) mg/dL AST 32 (17-59) U/L ALT 18 (4-49) U/L Alkaline Phosphatase 72 (38-126) U/L Total Protein 5.6 L (6.3-8.2) g/dL Albumin 3.1 L (3.5-5.0) g/dL Current Medications Generic Name Dose Route Start Last Admin Trade Name Freq PRN Reason Stop Dose Admin Acetaminophen 650 mg 02/23/25 03:00 02/24/25 04:15 Acetaminophen Tab 325 Mg Tab PO 650 mg Q6HR PRN Administration Mild Pain or Fever > 100.5 Albuterol Sulfate 2.5 mg 02/22/25 23:49 Albuterol Nebulized 2.5 Mg/3 Ml INHALATION RT-QID PRN Shortness Of Breath Aspirin 81 mg 02/23/25 21:00 02/23/25 20:46 Aspirin 81 Mg PO 81 mg HS YESY Administration Atorvastatin Calcium 20 mg 02/23/25 21:00 02/23/25 20:46 Atorvastatin 20 Mg Tab PO 20 mg HS YESY Administration Budesonide/Formoterol Fumarate 2 puff 02/22/25 23:49 02/23/25 20:27 Symbicort 80-4.5 Mcg Inhaler INHALATION 2 puff RT-BID YESY Administration Enoxaparin Sodium 40 mg 02/24/25 09:00 Enoxaparin 40 Mg/0.4 Ml Syringe SQ DAILY [facility] Sodium Chloride 1,000 mls @ 75 mls/hr 02/22/25 23:45 02/24/25 00:44 Saline 0.9% IV 75 mls/hr .[id number] YESY Administration Levothyroxine Sodium 25 mcg 02/23/25 06:00 02/24/25 06:23 Levothyroxine 25 Mcg Tab PO 25 mcg DAILY@0600 YESY Administration Lisinopril 10 mg 02/23/25 09:00 02/23/25 08:40 Lisinopril 10 Mg Tab PO 10 mg DAILY YESY Administration Metoprolol Succinate 12.5 mg 02/23/25 12:45 02/23/25 13:30 Metoprolol Succinate (Er) 25 Mg Tab.Er.24h PO Not Given DAILY YESY Naloxone HCl 0.2 mg 02/22/25 23:55 Naloxone 0.4 Mg/Ml 1 Ml Vial IV Q2M PRN Opioid Reversal Pantoprazole Sodium 40 mg 02/23/25 07:30 02/23/25 08:41 Pantoprazole 40 Mg Tablet PO 40 mg [id number] YESY Administration Tiotropium [place] 2 puff 02/23/25 08:00 02/23/25 09:07 Tiotropium 2.5 Mcg Inhaler INHALATION 2 puff RT-DAILY YESY Administration Tramadol HCl 50 mg 02/22/25 23:55 Tramadol 50 Mg Tab PO Q6H PRN Moderate Pain (Scale 4 to 6) Intake and Output 02/23/25 02/24/25 02/24/25 22:59 06:59 14:59 Output Total 900 Balance -900 Output: Urine 900 02/24/25 05:40 02/24/25 05:40
--- NOTE | 2025-02-24 14:20 | P.PN ---
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 He was down for > 24 hours due to pain in his bilateral knees. Denies chest pain, SOB, lightheadedness. In the ED he underwent extensive evaluation. BP 188/85, HR 70, RR 20, T 97.7F, 98% on 4L NC. CBC, Coag panel, CMP significant for WBC 10.36, PT 13.7, INR 1.3, APTT 21.6, BUN 31, glu 110, T. Bili 2.8. CPK 308. Lactic acid 1.9. Mag 1.8. Trop 0.235, 0.314, 0.420 with EKG showing sinus arrhythmia. 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 Femur and knee XR no acute process. CT chest/abd/pelvis showed no acute process, diverticulosis, emphysema, left renal calculus, cholelithiasis. Patient was started on heparin drip and admitted for Cardiology evaluation. Cardiology discontinued heparin drip and ordered Echo. 02/23 Patient was seen and examined. Reports chronic bilateral knee pain and burning sensation in both of his feet. No chest pain. 02/24 Patient was seen and examined. Cardiology recommends no further cardiac workup. He continues to report chronic knee pain and neuropathic pain in his feet along with back pain. He has not gotten out of bed yet. CBC and CMP significant for RBC 4.17, Hg 12.6, Hct 38.5, Plt 131, Cl 109, BUN 32, T. Bili 2.2, alb 3.1. Trop 0.179. Liver US shows common hepatic duct dilated at 1cm and cholelithiasis. General: non toxic, no distress, appears at stated age Derm: warm, dry Head: atraumatic, normocephalic, symmetric Eyes: EOMI, no lid lag, anicteric sclera Mouth: no lip lesion, mucus membranes moist Cardiovascular: S1S2 ashley, no murmur Lungs: Decreased BS bilateral, no rhonchi, no rales , no accessory muscle use Ext: no gross muscle atrophy, no edema, no contractures Neuro: no focal neuro deficits Psych: Alert, oriented, appropriate affect Based on my assessment of this patient, this patient meets a high complexity level of care. Toponin elevation: ASA 81 mg PO QD. Lipitor 20 mg PO QHS. Metoprolol 12.5 mg PO QD. Echo ordered. Cardiology consulted, recommends no further workup. Hyperbiliruibemia: Liver and GB US as above. Patient is asymptomatic. Elevated CPK: NS at 75 cc/hr. Elevated BUN: IV hydration as above. COPD on 4L NC: Not in acute exacerbation. Spiriva 2 INH QD. Symbicort 2 INH BID. Albuterol neb PRN. Hypertension: Lisinopril 10 mg PO QD. Metoprolol as above. Dyslipidemia: Lipitor as above. Hypothyroid: Synthroid 25 mcg PO QD. Resolved: Leukocytosis Patient advised to ambulate. He does live alone. May need PT and OT evaluation. CODE STATUS: FULL CODE DVT Prophylaxis: Lovenox SQ GI Prophylaxis: Designated medical POA if patient is not able to make medical decisions for themselves: I have reviewed the following artist consultant notes: Cardiology. I have reviewed the results of the following tests: CBC, CMP, Liver US, Trop. I have ordered the following tests: I have discussed the care of this patient with the following independent historian: Family at bedside. I have independently interpreted the following test below: I have discussed the management of this patient with the following physician: Objective - Vital Signs Vital signs: Vital Signs Temp 97.6 F 02/24/25 08:00 Pulse 71 02/24/25 10:00 Resp 18 02/24/25 10:00 BP 133/60 02/24/25 10:00 Pulse Ox 97 02/24/25 10:00 FiO2 Intake & Output 02/23/25 02/24/25 02/24/25 18:59 06:59 18:59 Output Total 900 Balance -900 Output: Urine 900 - Labs CBC & Chem 7: 02/24/25 05:40 02/24/25 05:40 Labs: Abnormal Lab Results - Last 24 Hours (Table) 02/24/25 02/24/25 02/24/25 Range/Units 05:40 05:40 05:40 RBC 4.17 L (4.40-5.60) 10*6/uL Hgb 12.6 L (13.0-17.0) g/dL Hct 38.5 L (39.6-50.0) % Plt Count 131 L (140-440) 10*3/uL Chloride 109 H (98-107) mmol/L BUN 32 H (9-20) mg/dL Total Bilirubin 2.2 H (0.2-1.3) mg/dL Troponin I 0.179 H* (0.000-0.034) ng/mL Total Protein 5.6 L (6.3-8.2) g/dL Albumin 3.1 L (3.5-5.0) g/dL
--- NOTE | 2025-02-25 12:12 | P.PN ---
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 He was down for > 24 hours due to pain in his bilateral knees. Denies chest pain, SOB, lightheadedness. In the ED he underwent extensive evaluation. BP 188/85, HR 70, RR 20, T 97.7F, 98% on 4L NC. CBC, Coag panel, CMP significant for WBC 10.36, PT 13.7, INR 1.3, APTT 21.6, BUN 31, glu 110, T. Bili 2.8. CPK 308. Lactic acid 1.9. Mag 1.8. Trop 0.235, 0.314, 0.420 with EKG showing sinus arrhythmia. 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 Femur and knee XR no acute process. CT chest/abd/pelvis showed no acute process, diverticulosis, emphysema, left renal calculus, cholelithiasis. Liver US shows common hepatic duct dilated at 1cm and cholelithiasis. Patient was started on heparin drip and admitted for Cardiology evaluation. Cardiology discontinued heparin drip and ordered Echo. Cardiology recommending no further workup. 02/25 Patient was seen and examined. He continues to report chronic knee pain and neuropathic pain in his feet along with back pain. Pain has improved since starting Tramadol. He has not gotten out of bed yet. No new labs today. General: non toxic, no distress, appears at stated age Derm: warm, dry Head: atraumatic, normocephalic, symmetric Eyes: EOMI, no lid lag, anicteric sclera Mouth: no lip lesion, mucus membranes moist Cardiovascular: S1S2 reg, no murmur Lungs: Decreased BS bilateral, no rhonchi, no rales , no accessory muscle use Ext: no gross muscle atrophy, no edema, no contractures Neuro: no focal neuro deficits Psych: Alert, oriented, appropriate affect Based on my assessment of this patient, this patient meets a high complexity level of care. Toponin elevation: ASA 81 mg PO QD. Lipitor 20 mg PO QHS. Metoprolol 12.5 mg PO QD. Echo ordered. Cardiology consulted, recommends no further workup. Hyperbiliruibemia: Liver and GB US as above. Patient is asymptomatic. Elevated CPK: DC IVF and encourage hydration by mouth. Elevated BUN: DC IVF and encourage hydration by mouth. COPD on 4L NC: Not in acute exacerbation. Spiriva 2 INH QD. Symbicort 2 INH BID. Albuterol neb PRN. Hypertension: Lisinopril 10 mg PO QD. Metoprolol as above. Dyslipidemia: Lipitor as above. Hypothyroid: Synthroid 25 mcg PO QD. Resolved: Leukocytosis Patient advised to ambulate. He does live alone. Need PT and OT evaluation. Echo is pending. Anticipate DC tomorrow if PT/OT cleared and Echo benign. CODE STATUS: FULL CODE DVT Prophylaxis: Lovenox SQ GI Prophylaxis: Designated medical POA if patient is not able to make medical decisions for themselves: I have reviewed the following erp consultant notes: I have reviewed the results of the following tests: I have ordered the following tests: Echo is pending. I have discussed the care of this patient with the following independent historian: I have independently interpreted the following test below: I have discussed the management of this patient with the following physician: Objective - Vital Signs Vital signs: Vital Signs Temp 97.4 F L 02/25/25 07:13 Pulse 74 02/25/25 07:13 Resp 18 02/25/25 07:13 BP 158/87 02/25/25 07:13 Pulse Ox 99 02/25/25 08:09 FiO2 Intake & Output 02/24/25 02/25/25 02/25/25 18:59 06:59 18:59 Output Total 450 800 Balance -450 -800 Weight 66.678 kg Output: Urine 450 800 - Labs CBC & Chem 7: 02/24/25 05:40 02/24/25 05:40
[2025-02-25] MEDS: ZINC OXIDE PASTE (Z-GUARD) 1 APPLIC TOPICAL PRN (17:26)
--- NOTE | 2025-02-26 08:03 | P.GSCN ---
History of Present Illness Consult date: 02/26/25 Reason for Consult: Bilateral leg pain Requesting physician: Haider Hernández History of present illness: This pleasant 89-year-old male who was brought into the emergency department after sustaining a fall by tripping over his exercise machine and was unable to get up and was laying on the ground for over 24 hours. Past medical history includes COPD on home oxygen, osteoarthritis, chronic knee pain, and hyperten vladimir. He denies any previous knowledge of any peripheral arterial disease and denies any history of coronary artery disease. Patient states he has pain in bilateral knees and down into his feet. States he gets swelling often into his feet and ankles which seem to have improved since he has been hospitalized. States that he normally will drive and go to the grocery store but when he is ambulating feels as though he may have to rest secondary to pain in his knees and down to his feet. He denies any acute pain at this time while resting in the recliner. Denies any shortness of breath or chest pain currently. Review of Systems A 14 point review systems was completed all pertinent positives and negatives as stated in the HPI. Past Medical History Past Medical History: COPD, Hyperlipidemia, Hypertension Additional Past Medical History / Comment(s): hiatal hernia History of Any Multi-Drug Resistant Organisms: None Reported Past Surgical History: Appendectomy, Back Surgery, Hernia Repair, Joint Replacement Additional Past Surgical History / Comment(s): nic knees, bowel obstrution Past Anesthesia/Blood Transfusion Reactions: No Reported Reaction Past Psychological History: No Psychological Hx Reported Smoking Status: Former smoker Past Alcohol Use History: None Reported Past Drug Use History: None Reported - Past Family History Father History Unknown: Yes Additional Family Medical History / Comment(s): cancer Medications and Allergies Home Medications Medication Instructions Recorded Confirmed Type Fluticasone Propion/Salmeterol 1 puff INHALATION RT-BID 12/30/23 02/23/25 History [Fluticasone-Salmeterol 250-50] Levothyroxine Sodium [Synthroid] 25 mcg PO DAILY 12/30/23 02/23/25 History Simvastatin [Zocor] 40 mg PO HS 12/30/23 02/23/25 History Tiotropium 2.5 Mcg/Puff [Spiriva 2 puff INHALATION RT-DAILY 12/30/23 02/23/25 History Respimat 2.5 Mcg] Omeprazole 20 mg PO BID #60 tab 01/05/24 02/23/25 Rx lisinopriL [Zestril] 10 mg PO DAILY #30 tab 01/05/24 02/23/25 Rx atenoloL [Tenormin] 25 mg PO HS 01/16/24 02/23/25 History Ipratropium [place] [Ipratropium 1 spray EA NOSTRIL BID 02/23/25 02/23/25 History [place] 0.03%] atenoloL [Tenormin] 50 mg PO DAILY 02/23/25 02/23/25 History fluorouraciL [Efudex] 1 applic TOPICAL BID 02/23/25 02/23/25 History Allergies Allergy/AdvReac Type Severity Reaction Status Date / Time diazepam [From Valium] Allergy Anaphylaxis Verified 02/23/25 11:18 Surgical - Exam Vital Signs Temp Pulse Resp BP Pulse Ox 97.7 F 70 20 188/85 98 02/22/25 20:18 02/22/25 20:18 02/22/25 20:18 02/22/25 20:18 02/22/25 20:18 General appearance: The patient is alert, oriented, appears in no acute di stress. HET: Head is normocephalic and atraumatic. Pupils are equal and reactive. Neck: Supple. Heart: Regular. Lungs: Equal expansion, normal respiratory effort. Abdomen: Soft, nontender, nondistended. Extremities: Normal skin color and turgor. With bruising noted on upper extremities and lower extremities. Feet are warm to the touch, capillary refill adequate, palpable DP pulses bilaterally. Neurological: No focal deficits. Strength and sensation are grossly intact. Results - Labs 02/24/25 05:40 02/24/25 05:40 - Imaging Comments: Arterial ultrasound bilateral lower extremities. ROBIN on the right 1.08, ROBIN on the left 0.99 Assessment and Plan Assessment: 1. Bilateral lower extremity pain 2. Mechanical fall secondary to tripping Plan: 1. Obtain arterial duplex of the lower extremities 2. Arterial duplex reviewed, no evidence for peripheral arterial disease and no indication for further workup or intervention Thank you for this consultation, we will sign off at this time. The impression and plan of care has been dictated as directed. Dr. Carmen Fox performed a history and examination of this patient, discussed the same with the dictator. I agree with the dictator's note ,documented as a scribe. Any additional findings or plans will be noted.
--- NOTE | 2025-02-26 11:28 | US ---
EXAMINATION TYPE: US arterial LE multi level DATE OF EXAM: 02/26/2025 8:19 AM COMPARISONS: None. CLINICAL INDICATION: Male, 89 years old with history of Bilateral leg pain; Bilateral knee pain TECHNIQUE: Systolic pressures were taken of the upper and lower extremity arteries with ankle-brachia l indices and toe brachial indices calculated bilaterally. History of: Smoker: Previous Hypertension: Yes Diabetic: Yes Previous Vascular Surgery: No FINDINGS: Doppler Waveforms: Right: Multiphasic except monophasic waveforms within the digit. Left: Multiphasic except monophasic waveforms within the digit. Brachial Artery systolic pressure: Right: 178 Left: Deferred due to IV Posterior Tibial artery systolic pressure: Right: 192 Left: 175 Dorsalis Pedis artery systolic pressure: Right: 189 Left: 176 Toe artery systolic pressure: Right: Unable to visualize waveform well enough to obtain pressure Left: Unable to visualize waveform well enough to obtain pressure Ankle-Brachial Indices: Right: 1.1 Left: 1.0 Toe Brachial Indices: Right: Unable to obtain Left: Unable to obtain (Normal > 0.6; Mild 0.35 - 0.59, Moderate 0.12 - 0.34, Severe <0.12) IMPRESSION: ROBIN: Normal ankle brachial indices bilaterally with monophasic waveforms and inability to obtain toe brach ial indices bilaterally. Cannot exclude peripheral arterial vascular disease within the digits. [facility], , 02/26/2025 11:26 AM
--- NOTE | 2025-02-26 16:33 | P.PN ---
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 He was down for > 24 hours due to pain in his bilateral knees. Denies chest pain, SOB, lightheadedness. In the ED he underwent extensive evaluation. BP 188/85, HR 70, RR 20, T 97.7F, 98% on 4L NC. CBC, Coag panel, CMP significant for WBC 10.36, PT 13.7, INR 1.3, APTT 21.6, BUN 31, glu 110, T. Bili 2.8. CPK 308. Lactic acid 1.9. Mag 1.8. Trop 0.235, 0.314, 0.420 with EKG showing sinus arrhythmia. 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 Femur and knee XR no acute process. CT chest/abd/pelvis showed no acute process, diverticulosis, emphysema, left renal calculus, cholelithiasis. Liver US shows common hepatic duct dilated at 1cm and cholelithiasis. Patient was started on heparin drip and admitted for Cardiology evaluation. Cardiology discontinued heparin drip and ordered Echo. Cardiology recommending no further workup. 02/26: No acute events overnight, patient was seen and examined at bedside with his daughter present during exam. He was earlier seen by vascular surgery who ordered arterial duplex that showed no evidence of peripheral tibial disease and no indication for further workup and intervention. Patient continues to complain of bilateral knee pain and lower extremity pain. TTE still pending. His vitals significant for normal temperature, blood pressure elevated 164/81, SpO2 97% on 4 L home oxygen, baseline. No new blood work this morning, ordered and pending. PT OT recommends home with home care. Will plan to discharge in the next 24 hours should TTE result be unremarkable. Discussed with RN, patient's family member Pertinent positives and negatives as discussed above, a complete review of systems was performed and all other systems are negative. Vitals Signs Reviewed. General: [nontoxic], [no distress], [appears at stated age] Derm: [warm], [dry] Head: [atraumatic], [normocephalic], [symmetric] Eyes: [EOMI], [no lid lag], [anicteric sclera] Mouth: [no lip lesion], [mucus membranes moist] Cardiovascular: [S1S2 reg], [no murmur] Lungs: [CTA bilateral], [no rhonchi, no rales] , [no accessory muscle use] Abdominal: [soft], [ nontender to palpation], [no guarding], [no appreciable organomegaly] Ext: [no gross muscle atrophy], [no edema], [no contractures] Neuro: [ CN II-XI grossly intact], [no focal neuro deficits] Psych: [Alert], [oriented], [appropriate affect] Assessment and Plan: Bilateral lower extremity pain: Vascular surgery consulted, DVT ruled out, patient to follow-up with PCP, PT OT recommends home with home care Toponin elevation: ASA 81 mg PO QD. Lipitor 20 mg PO QHS. Metoprolol 12.5 mg PO QD. Echo ordered. Cardiology consulted, recommends no further workup. Hyperbiliruibemia: Liver and GB US as above. Patient is asymptomatic. Elevated CPK: DC IVF and encourage hydration by mouth. Elevated BUN: DC IVF and encourage hydration by mouth. COPD on 4L NC: Not in acute exacerbation. Spiriva 2 INH QD. Symbicort 2 INH BID. Albuterol neb PRN. Hypertension: Lisinopril 10 mg PO QD. Metoprolol as above. Dyslipidemia: Lipitor as above. Hypothyroid: Synthroid 25 mcg PO QD. Resolved: Leukocytosis DVT ppx: Lovenox Code status: Full code Anticipated discharge place: [facility] Anticipated discharge time: 24 hours Objective - Vital Signs Vital signs: Vital Signs Temp 97.5 F L 02/26/25 14:41 Pulse 66 02/26/25 14:41 Resp 16 02/26/25 14:41 BP 164/81 02/26/25 14:41 Pulse Ox 97 02/26/25 14:41 FiO2 Intake & Output 02/25/25 02/26/25 02/26/25 18:59 06:59 18:59 Output Total 400 300 Balance -400 -300 Output: Urine 400 300 Other: Voiding Method Urinal # Voids 2 3 1 # Bowel Movements 0 - Labs CBC & Chem 7: 02/24/25 05:40 02/24/25 05:40
[2025-02-27] MEDS: guaiFENesin-DM 100-10MG/5ML 10 ML CUP PO PRN (06:35)
[2025-02-27 07:11] LABS: Anion Gap 7.50 mmol/L (4.00-12.00); BUN/Creat Ratio 25.57 Ratio (12.00-20.00); Blood Urea Nitrogen 17.9 mg/dL (9.0-27.0); Calcium 9.3 mg/dL (8.7-10.3); Carbon Dioxide 28.5 mmol/L (21.6-31.8); Chloride 101 mmol/L (96-109); Glucose 112 mg/dL (70-110); Potassium 4.6 mmol/L (3.5-5.5); Sodium 137 mmol/L (135-145)
--- NOTE | 2025-02-27 13:06 | P.DS ---
Providers Date of admission: 02/22/25 23:56 Attending physician: David Yao MD Consults: 02/23/25 07:32 Consult Physician Stat Consulting Provider: Aubrey Barrientos Consult Reason/Comments: elevated TROPONIN Do you want consulting provider notified?: Yes 02/25/25 14:22 Consult Physician Routine Consulting Provider: Uriel Morales Consult Reason/Comments: bilateral leg pain Do you want consulting provider notified?: Yes, Notify in am Primary care physician: Dylan Dale Hospital Course: Discharge Diagnosis: Bilateral lower extremity pain, knee pain, due to osteoarthritis Troponin elevation Hyperbilirubinemia Elevated CPK Elevated BUN COPD on 4 L nasal cannula, not in acute exacerbation HTN Sleep edema Hypothyroidism Hospital Course: Hospital Course: 89 year old M with PMH of COPD on 4L home O2, HTN, HLD presents to the ED after tripping and falling from an exercise bike. He was down for > 24 hours due to pain in his bilateral knees. Denies chest pain, SOB, lightheadedness. In the ED he underwent extensive evaluation. BP 188/85, HR 70, RR 20, T 97.7F, 98% on 4L NC. CBC, Coag panel, CMP significant for WBC 10.36, PT 13.7, INR 1.3, APTT 21.6, BUN 31, glu 110, T. Bili 2.8. CPK 308. Lactic acid 1.9. Mag 1.8. Trop 0.235, 0.314, 0.420 with EKG showing sinus arrhythmia. 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 Femur and knee XR no acute process. CT chest/abd/pelvis showed no acute process, diverticulosis, emphysema, left renal calculus, cholelithiasis. Liver US shows common hepatic duct dilated at 1cm and cholelithiasis. Patient was started on heparin drip and admitted for Cardiology evaluation. Cardiology discontinued heparin drip,Cardiology recommending no further workup patient to undergo echo in the outpatient settings. He was r seen by vascular surgery who ordered arterial duplex that showed no evidence of peripheral tibial disease and no indication for further workup and intervention. Patient continues to complain of bilateral knee pain and lower extremity pain. His vitals are stable on home oxygen, he has no other complaints or new concerns, optimized for discharge, recommended close follow-[facility], patient demonstrated understanding. Discharged home with home care, atenolol switched to metoprolol succinate 12.5 mg p.o. daily, aspirin prescribed. Patient seen and examined at bedside. Vital signs reviewed and stable. General: Nontoxic, no distress, appears at stated age Derm: Warm, dry Head: Atraumatic, normocephalic, symmetric Eyes: EOMI, no lid lag, anicteric sclera Mouth: No lip lesion, mucus membranes moist Cardiovascular: S1S2 reg, no murmur Lungs: CTA bilateral, no rhonchi, no rales, no accessory muscle use Abdominal: Soft, nontender to palpation, no guarding, no appreciable org anomegaly Ext: No gross muscle atrophy, no edema, no contractures Neuro: CN II-XI grossly intact, no focal neuro deficits Psych: Alert, oriented, appropriate affect A total of 38 minutes of time were spent preparing this complex discharge summary. Patient was discharged on. 02/27/2025 Patient Condition at Discharge: Stable Plan - Discharge Summary Discharge Rx Participant: No New Discharge Prescriptions: New Aspirin 81 mg PO HS #30 tab polyethylene glycoL 3350 [Miralax] 17 gm PO DAILY #30 packet Metoprolol Succinate (ER) [Toprol XL] 12.5 mg PO DAILY #30 tab Continue Tiotropium 2.5 Mcg/Puff [Spiriva Respimat 2.5 Mcg] 2 puff INHALATION RT-DAILY Fluticasone Propion/Salmeterol [Fluticasone-Salmeterol 250-50] 1 puff INHALATION RT-BID Levothyroxine Sodium [Synthroid] 25 mcg PO DAILY lisinopriL [Zestril] 10 mg PO DAILY #30 tab Omeprazole 20 mg PO BID #60 tab fluorouraciL [Efudex] 1 applic TOPICAL BID Simvastatin [Zocor] 40 mg PO HS Ipratropium [place] [Ipratropium [place] 0.03%] 1 spray EA NOSTRIL BID Discontinued atenoloL [Tenormin] 50 mg PO DAILY atenoloL [Tenormin] 25 mg PO HS Discharge Medication List Fluticasone Propion/Salmeterol [Fluticasone-Salmeterol 250-50] 1 puff INHALATION RT-BID 12/30/23 [History] Levothyroxine Sodium [Synthroid] 25 mcg PO DAILY 12/30/23 [History] Simvastatin [Zocor] 40 mg PO HS 12/30/23 [History] Tiotropium 2.5 Mcg/Puff [Spiriva Respimat 2.5 Mcg] 2 puff INHALATION RT-DAILY 12/30/23 [History] Omeprazole 20 mg PO BID #60 tab 01/05/24 [Rx] lisinopriL [Zestril] 10 mg PO DAILY #30 tab 01/05/24 [Rx] Ipratropium [place] [Ipratropium [place] 0.03%] 1 spray EA NOSTRIL BID 02/23/25 [History] fluorouraciL [Efudex] 1 applic TOPICAL BID 02/23/25 [History] Aspirin 81 mg PO HS #30 tab 02/27/25 [Rx] Metoprolol Succinate (ER) [Toprol XL] 12.5 mg PO DAILY #30 tab 02/27/25 [Rx] polyethylene glycoL 3350 [Miralax] 17 gm PO DAILY #30 packet 02/27/25 [Rx] Follow up Appointment(s)/Referral(s): Dylan Dale DO [Primary Care Provider] - 1-2 days Activity/Diet/Wound Care/Special Instructions: Please, follow up with your PCP and cardiology Discharge Disposition: HOME WITH HOME HEALTH SERVICES
[2025-02-27 13:48] VITALS: BP 120/70; PULSE 68; RESP 17; TEMP 97
== END 2025-02-27 16:34 | disposition home health service (06) | DRG 554 ==
LOC: EC 20:12 → 6NMEDSUR 23:55 → OBSVTOIN 23:56 → 6NMEDSUR 02-23 15:30 → 5NMEDONC 02-23 20:01 → 3SCARD 02-23 20:18 → 4SSUR 02-24 13:34
PROVIDERS: ADMIT Internal Medicine; ATTEND Internal Medicine
DX: M17.0 Bilateral primary osteoarthritis of knee (principal); Z99.81 Dependence on supplemental oxygen; E03.9 Hypothyroidism, unspecified; D72.829 Elevated white blood cell count, unspecified; E78.5 Hyperlipidemia, unspecified; S00.03XA Contusion of scalp, initial encounter; J44.9 Chronic obstructive pulmonary disease, unspecified; I10 Essential (primary) hypertension; R79.89 Other specified abnormal findings of blood chemistry; K57.30 Diverticulosis of large intestine without perforation or abscess without bleeding; K80.20 Calculus of gallbladder without cholecystitis without obstruction; Z79.890 Hormone replacement therapy; G89.29 Other chronic pain; W01.0XXA Fall on same level from slipping, tripping and stumbling without subsequent striking against object, initial encounter; Y93.A1 Activity, exercise machines primarily for cardiorespiratory conditioning; Y92.9 Unspecified place or not applicable; Z79.899 Other long term (current) drug therapy; Z79.82 Long term (current) use of aspirin; Z87.891 Personal history of nicotine dependence; Z87.19 Personal history of other diseases of the digestive system; Z88.8 Allergy status to other drugs, medicaments and biological substances; Z96.653 Presence of artificial knee joint, bilateral
CPT/HCPCS: 36415; 70450; 71250; 72125; 74176; 76705; 80048; 80053; 82550; 83605; 83735; 84484; 85025; 85027; 85610; 85730; 93005; 93922; 93923; 94640; 94760; 96361; 96365; 96366; 96372; 96375; 99285